=== PATIENT | male | born 1965 | race Two or more races ===

== ENCOUNTER 2021-05-06 12:13 | Inpatient (IN) | payer MEDICARE, MEDICAID ==
[~2021-05-06] VITALS: Ht 180.3 cm; Wt 97.8 kg
[2021-05-06 14:44] LABS: Basophils # (auto) 0.2 10 ^3/uL (0-0.2); Hemoglobin 7.8 g/dL (13.5-17.5); Nucleated Red Blood Cells % 0.1 %; Red Blood Cells 2.82 10^6/uL (4.5-5.90)
[2021-05-06 14:45] LABS: Basophils % (auto) 3.1 % (0.0-2.0); Eosinophils # (auto) 0 10 ^3/uL (0-0.8); Eosinophils % (auto) 0.6 % (0.0-7.0); Hematocrit 23.4 % (41.0-53.0); Lymphocytes % (auto) 12.7 % (10.0-50.0); Mean Corpuscular Hemoglobin 27.6 pg (28.0-32.0); Mean Corpuscular Hgb Conc. 33.2 g/dL (32.0-36.0); Mean Corpuscular Volume 83.1 fL (80.0-100.0); Monocytes # (auto) 0.5 10 ^3/uL (0-1.3); Neutrophils # (auto) 5.9 10 ^3/uL (1.6-8.6); Neutrophils % (auto) 76.6 % (37.0-80.0); Platelet Count (auto) 429 10^3/uL (140-450); Red Cell Distribution Width 19.6 % (11.8-14.3); White Blood Cell 7.6 10^3/uL (4.4-10.8)
[2021-05-06 14:59] LABS: INR 1.08 (0.9-1.15); Partial Thromboplastin Time 29.9 sec (23.0-31.2)
[2021-05-06 15:00] LABS: Albumin 2.6 g/dL (3.4-5.0); Calcium 9.3 mg/dL (8.5-10.1)
[2021-05-06 15:04] LABS: Bilirubin, Total 0.4 mg/dL (0.2-1.0); Total Protein 6.9 g/dL (6.4-8.2)
[2021-05-06 15:19] LABS: BUN/Creatinine Ratio 5.6
[2021-05-06 15:22] LABS: Potassium 5.9 mmol/L (3.5-5.1)
[2021-05-06] MEDS ORDERED: SODIUM BICARBONATE 8.4 % INJ 50ML VIAL IV ONE (16:30)
[2021-05-06] MEDS ORDERED: CALCIUM CHL 100MG/ML 1,000 MG in D5W 5% 100 ML IV ONE (16:30)
[2021-05-06] MEDS ORDERED: dilTIAZem 120MG ER CAP PO ONE (19:15)
[2021-05-06] MEDS ORDERED: METOCLOPRAMIDE HCL 5MG/ml INJ 2ml VIAL IV ONE (19:15)
[2021-05-06] MEDS ORDERED: SODIUM ZIRCONIUM CYCL 10 GM PAK PO ONE (19:15)
[2021-05-06] MEDS ORDERED: NITROGLYCERIN 0.4 MG SL TAB SL PRN (19:15)
[2021-05-06] MEDS ORDERED: MORPHINE SULF INJ 2 MG/ML SYRINGE 1ML IV PRN (19:15)
[2021-05-06] MEDS ORDERED: ALBUTEROL SULF 2.5 MG/0.5ML(0.5%) NEB SOLN NEB ONE (19:15)
[2021-05-06] MEDS ORDERED: cefTRIAXone 1GM/50ML D5W 50 ML IV ONE (19:30)
[2021-05-06] MEDS: ONDANSETRON HCL 4 MG/2 ML VIAL IV PRN (23:41)
[2021-05-06] MEDS: CLINDAMYCIN 300MG IV 50 ML IV SCH (23:43)
[2021-05-07] VITALS (8 sets, daily range): BP systolic 107–145; BP diastolic 54–98
[2021-05-07] MEDS: ONDANSETRON HCL 4 MG/2 ML VIAL IV PRN (01:43)
[2021-05-07] MEDS: metroNIDAZOLE 500MG/100ML 100 ML IV SCH ×4 (03:00→21:48)
[2021-05-07] MEDS ORDERED: ASCO-22 PO (03:51)
[2021-05-07] MEDS ORDERED: B-CO1TAB33 PO (03:51)
[2021-05-07] MEDS ORDERED: TAMS0.4C36 PO (03:51)
[2021-05-07] MEDS ORDERED: DOCU100T15 PO (03:51)
[2021-05-07] MEDS ORDERED: SEVE800T8 PO (03:51)
[2021-05-07] MEDS: CLINDAMYCIN 300MG IV 50 ML IV SCH ×3 (04:03→19:35)
[2021-05-07] MEDS: MORPHINE SULF INJ 2 MG/ML SYRINGE 1ML IV PRN ×4 (05:12→21:54)
[2021-05-07 05:43] LABS: Basophils # (auto) 0.1 10 ^3/uL (0-0.2); Eosinophils # (auto) 0.1 10 ^3/uL (0-0.8); Lymphocytes # (auto) 0.8 10 ^3/uL (0.4-5.4); White Blood Cell 6.8 10^3/uL (4.4-10.8)
[2021-05-07 05:45] LABS: Eosinophils % (auto) 1.4 % (0.0-7.0); Hematocrit 21.7 % (41.0-53.0); Hemoglobin 7.2 g/dL (13.5-17.5); Lymphocytes % (auto) 11.2 % (10.0-50.0); Mean Corpuscular Hemoglobin 27.3 pg (28.0-32.0); Mean Corpuscular Hgb Conc. 33.2 g/dL (32.0-36.0); Mean Corpuscular Volume 82.2 fL (80.0-100.0); Monocytes # (auto) 0.8 10 ^3/uL (0-1.3); Monocytes % (auto) 11.7 % (0.0-12.0); Neutrophils % (auto) 73.7 % (37.0-80.0); Platelet Count (auto) 405 10^3/uL (140-450); Red Blood Cells 2.64 10^6/uL (4.5-5.90)
[2021-05-07 06:00] LABS: Albumin 2.3 g/dL (3.4-5.0); Calcium 9.4 mg/dL (8.5-10.1)
[2021-05-07 06:09] LABS: BUN/Creatinine Ratio 5.7; Bilirubin, Total 0.4 mg/dL (0.2-1.0); Phosphorus 8.6 mg/dL (2.5-4.90); Total Protein 6.2 g/dL (6.4-8.2); Uric Acid 9.7 mg/dL (3.5-7.2)
[2021-05-07 06:13] LABS: Potassium 5.7 mmol/L (3.5-5.1)
[2021-05-07] MEDS: cefTRIAXone 1GM/50ML D5W 50 ML IV SCH (08:20)
[2021-05-07] MEDS: PANTOPRAZOLE 40 MG/10 ML VIAL INJ IV SCH (08:20)
[2021-05-07] MEDS: ASPirin 81 mg TAB PO SCH (08:20)
[2021-05-07] MEDS: SEVELAMER 800 MG TAB PO SCH ×3 (08:20→17:53)
[2021-05-07] MEDS: dilTIAZem 120MG ER CAP PO SCH (08:21)
[2021-05-07 10:09] LABS: Cholesterol 154 mg/dL (< 200)
[2021-05-07 10:11] LABS: HDL Cholesterol 59 mg/dL (40-59); LDL Cholesterol 80 mg/dL (< 100); Triglycerides 99 mg/dL (< 150)
[2021-05-07] MEDS ORDERED: SODIUM CHL 0.9% 1000 ML BAG XX ONE (10:45)
[2021-05-07] MEDS ORDERED: EPOETIN ALFA-EPBX 10,000 UNIT/1ML VIAL SC ONE (21:00)
[2021-05-08] VITALS (7 sets, daily range): BP systolic 127–153; BP diastolic 70–95
[2021-05-08] MEDS: TEMAZEPAM 15 MG CAP PO PRN (01:11)
[2021-05-08] MEDS: MORPHINE SULF INJ 2 MG/ML SYRINGE 1ML IV PRN ×3 (02:11→21:20)
[2021-05-08] MEDS: CLINDAMYCIN 300MG IV 50 ML IV SCH ×3 (03:26→20:09)
[2021-05-08 05:32] LABS: Basophils # (auto) 0.2 10 ^3/uL (0-0.2); Basophils % (auto) 1.7 % (0.0-2.0); Eosinophils # (auto) 0.1 10 ^3/uL (0-0.8); Eosinophils % (auto) 0.9 % (0.0-7.0); Hematocrit 25.9 % (41.0-53.0); Hemoglobin 8.7 g/dL (13.5-17.5); Lymphocytes # (auto) 0.7 10 ^3/uL (0.4-5.4); Lymphocytes % (auto) 7.6 % (10.0-50.0); Mean Corpuscular Hemoglobin 28.6 pg (28.0-32.0); Mean Corpuscular Hgb Conc. 33.7 g/dL (32.0-36.0); Mean Corpuscular Volume 85.1 fL (80.0-100.0); Monocytes % (auto) 10.6 % (0.0-12.0); Neutrophils # (auto) 7.2 10 ^3/uL (1.6-8.6); Neutrophils % (auto) 79.2 % (37.0-80.0); Nucleated Red Blood Cells % 0.3 %; Platelet Count (auto) 364 10^3/uL (140-450); Red Blood Cells 3.04 10^6/uL (4.5-5.90); Red Cell Distribution Width 20.7 % (11.8-14.3); White Blood Cell 9.1 10^3/uL (4.4-10.8)
[2021-05-08 05:49] LABS: INR 1.08 (0.9-1.15); Partial Thromboplastin Time 29.8 sec (23.0-31.2)
[2021-05-08 05:59] LABS: BUN/Creatinine Ratio 5.1; Calcium 9.5 mg/dL (8.5-10.1)
[2021-05-08] MEDS: metroNIDAZOLE 500MG/100ML 100 ML IV SCH ×3 (06:19→21:20)
[2021-05-08] MEDS: SEVELAMER 800 MG TAB PO SCH ×3 (08:00→11:19)
[2021-05-08] MEDS: ASPirin 81 mg TAB PO SCH (09:17)
[2021-05-08] MEDS: cefTRIAXone 1GM/50ML D5W 50 ML IV SCH (09:17)
[2021-05-08] MEDS: PANTOPRAZOLE 40 MG/10 ML VIAL INJ IV SCH (09:17)
[2021-05-08] MEDS: dilTIAZem 120MG ER CAP PO SCH (09:20)
[2021-05-08] MEDS ORDERED: LORazepam 2MG/ML-1ML VIAL IV ONE (11:30)
[2021-05-08] MEDS ORDERED: LIDOCAINE 2%HCL (LOCAL ANESTH.) INJ 20ML MDV ONE (13:26)
[2021-05-08] MEDS ORDERED: IODIXANOL 320MG/ML 100ML BTL IV ONE (13:26)
[2021-05-08] MEDS ORDERED: MIDAZOLAM HCL 1MG/1ML-2 ML VIAL ONE (13:51)
[2021-05-08] MEDS ORDERED: ANGIOMAX 250 MG VIAL IV ONE (13:51)
[2021-05-08] MEDS ORDERED: fentaNYL CITRATE 100 MCG/2 ML VL ONE (13:51)
[2021-05-08] MEDS ORDERED: SODIUM CHL 0.9% 50 ML ONE (13:52)
[2021-05-08] MEDS ORDERED: diphenhdrAMINE HCL 50 MG/1 ML VL ONE (14:11)
[2021-05-08] MEDS ORDERED: NITROGLYCERIN 5MG/ML 10ML VIAL IV ONE (14:40)
[2021-05-08] MEDS ORDERED: VERAPAMIL 2.5MG/ML INJ 2ML VIAL IV ONE (14:40)
[2021-05-08] MEDS ORDERED: CLOPIDOGREL BISULFATE 75 MG TAB ONE (15:16)
[2021-05-08] MEDS: SODIUM CHLOR 0.9% PF (SALINE LOCK) 10ML VIAL/SYR IV SCH (21:20)
[2021-05-09] VITALS (9 sets, daily range): BP systolic 105–123; BP diastolic 56–79
[2021-05-09] MEDS: CLINDAMYCIN 300MG IV 50 ML IV SCH ×3 (03:51→20:32)
[2021-05-09] MEDS: MORPHINE SULF INJ 2 MG/ML SYRINGE 1ML IV PRN ×4 (04:01→20:35)
[2021-05-09] MEDS: SODIUM CHLOR 0.9% PF (SALINE LOCK) 10ML VIAL/SYR IV SCH ×3 (05:16→21:31)
[2021-05-09] MEDS: metroNIDAZOLE 500MG/100ML 100 ML IV SCH ×3 (05:16→21:32)
[2021-05-09 05:55] LABS: Basophils # (auto) 0.1 10 ^3/uL (0-0.2); Eosinophils # (auto) 0.1 10 ^3/uL (0-0.8); Nucleated Red Blood Cells % 0.2 %; White Blood Cell 7.1 10^3/uL (4.4-10.8)
[2021-05-09 05:59] LABS: Basophils % (auto) 1.6 % (0.0-2.0); Eosinophils % (auto) 1.3 % (0.0-7.0); Hematocrit 20.7 % (41.0-53.0); Lymphocytes # (auto) 1.2 10 ^3/uL (0.4-5.4); Lymphocytes % (auto) 16.3 % (10.0-50.0); Mean Corpuscular Hemoglobin 29.3 pg (28.0-32.0); Mean Corpuscular Volume 86.1 fL (80.0-100.0); Monocytes # (auto) 0.9 10 ^3/uL (0-1.3); Monocytes % (auto) 12.2 % (0.0-12.0); Neutrophils # (auto) 4.9 10 ^3/uL (1.6-8.6); Neutrophils % (auto) 68.6 % (37.0-80.0); Platelet Count (auto) 305 10^3/uL (140-450); Red Blood Cells 2.41 10^6/uL (4.5-5.90); Red Cell Distribution Width 20.5 % (11.8-14.3)
[2021-05-09 06:15] LABS: Calcium 6.8 mg/dL (8.5-10.1); Magnesium 1.7 mg/dL (1.6-2.6); Potassium 3.7 mmol/L (3.5-5.1)
[2021-05-09] MEDS ORDERED: SODIUM CHL 0.9% 1000 ML BAG XX ONE (07:00)
[2021-05-09] MEDS: PANTOPRAZOLE 40 MG/10 ML VIAL INJ IV SCH (09:46)
[2021-05-09] MEDS: cefTRIAXone 1GM/50ML D5W 50 ML IV SCH (09:46)
[2021-05-09] MEDS: SEVELAMER 800 MG TAB PO SCH ×3 (09:46→18:00)
[2021-05-09] MEDS: ASPirin 81 mg TAB PO SCH (09:46)
[2021-05-09] MEDS: dilTIAZem 120MG ER CAP PO SCH (09:47)
[2021-05-09 18:08] LABS: Hematocrit 27.4 % (41.0-53.0); Hemoglobin 9.3 g/dL (13.5-17.5)
[2021-05-09] MEDS ORDERED: EPOETIN ALFA-EPBX 10,000 UNIT/1ML VIAL SC ONE (21:00)
[2021-05-09] MEDS: TEMAZEPAM 15 MG CAP PO PRN (22:26)
[2021-05-10] MEDS: MORPHINE SULF INJ 2 MG/ML SYRINGE 1ML IV PRN ×5 (00:16→17:51)
[2021-05-10] MEDS: CLINDAMYCIN 300MG IV 50 ML IV SCH ×3 (03:38→20:00)
[2021-05-10 04:46] VITALS: BP 133/74
[2021-05-10] MEDS: SODIUM CHLOR 0.9% PF (SALINE LOCK) 10ML VIAL/SYR IV SCH ×3 (05:33→22:27)
[2021-05-10] MEDS: metroNIDAZOLE 500MG/100ML 100 ML IV SCH ×2 (05:34→13:53)
[2021-05-10 06:01] LABS: Basophils # (auto) 0.1 10 ^3/uL (0-0.2); Eosinophils # (auto) 0.1 10 ^3/uL (0-0.8); Eosinophils % (auto) 1.3 % (0.0-7.0); Hematocrit 26.4 % (41.0-53.0); Hemoglobin 8.9 g/dL (13.5-17.5); Lymphocytes # (auto) 1.2 10 ^3/uL (0.4-5.4); Lymphocytes % (auto) 12.6 % (10.0-50.0); Mean Corpuscular Hemoglobin 29.2 pg (28.0-32.0); Mean Corpuscular Hgb Conc. 33.7 g/dL (32.0-36.0); Mean Corpuscular Volume 86.6 fL (80.0-100.0); Monocytes # (auto) 1.4 10 ^3/uL (0-1.3); Monocytes % (auto) 13.6 % (0.0-12.0); Neutrophils # (auto) 7.1 10 ^3/uL (1.6-8.6); Neutrophils % (auto) 71.5 % (37.0-80.0); Nucleated Red Blood Cells % 0.1 %; Platelet Count (auto) 316 10^3/uL (140-450); Red Blood Cells 3.05 10^6/uL (4.5-5.90); Red Cell Distribution Width 20.5 % (11.8-14.3); White Blood Cell 9.9 10^3/uL (4.4-10.8)
[2021-05-10 06:16] LABS: Albumin 2.2 g/dL (3.4-5.0); Calcium 8.8 mg/dL (8.5-10.1)
[2021-05-10 06:21] LABS: BUN/Creatinine Ratio 4.8; Bilirubin, Total 0.3 mg/dL (0.2-1.0); Total Protein 5.7 g/dL (6.4-8.2)
[2021-05-10] MEDS: SEVELAMER 800 MG TAB PO SCH ×3 (08:00→17:51)
[2021-05-10 08:15] VITALS: BP 130/81
[2021-05-10 09:01] VITALS: BP 130/81
[2021-05-10] MEDS: cefTRIAXone 1GM/50ML D5W 50 ML IV SCH (09:12)
[2021-05-10] MEDS: PANTOPRAZOLE 40 MG/10 ML VIAL INJ IV SCH (09:49)
[2021-05-10] MEDS: dilTIAZem 120MG ER CAP PO SCH (09:50)
[2021-05-10] MEDS: ASPirin 81 mg TAB PO SCH (09:50)
[2021-05-10 13:00] VITALS: BP 134/80
[2021-05-10] MEDS: HYDROcodone-ACET 5/325MG TAB PO PRN ×2 (15:09→23:46)
[2021-05-10 17:00] VITALS: BP 121/74
[2021-05-10] MEDS: Nepro With Carbsteady ButterPecan 8oz Carton PO SCH (17:51)
[2021-05-10] MEDS ORDERED: Glucerna Carbsteady SHAKE Vanilla 8oz PO SCH (18:00)
[2021-05-10] MEDS ORDERED: Ensure HIGH Protein Chocolate 8oz Bottle PO SCH (18:00)
[2021-05-10 22:00] VITALS: BP 115/67
[2021-05-11] MEDS: TEMAZEPAM 15 MG CAP PO PRN ×2 (00:54→23:07)
[2021-05-11] MEDS: CLINDAMYCIN 300MG IV 50 ML IV SCH (04:30)
[2021-05-11 05:00] VITALS: BP 133/74
[2021-05-11] MEDS: MORPHINE SULF INJ 2 MG/ML SYRINGE 1ML IV PRN ×3 (05:00→20:42)
[2021-05-11] MEDS: SODIUM CHLOR 0.9% PF (SALINE LOCK) 10ML VIAL/SYR IV SCH ×3 (05:33→22:00)
[2021-05-11 05:59] LABS: Basophils # (auto) 0.2 10 ^3/uL (0-0.2); Basophils % (auto) 1.6 % (0.0-2.0); Eosinophils # (auto) 0.2 10 ^3/uL (0-0.8); Eosinophils % (auto) 2.1 % (0.0-7.0); Hematocrit 25.5 % (41.0-53.0); Hemoglobin 8.7 g/dL (13.5-17.5); Lymphocytes # (auto) 1.1 10 ^3/uL (0.4-5.4); Lymphocytes % (auto) 11.8 % (10.0-50.0); Mean Corpuscular Hemoglobin 29.3 pg (28.0-32.0); Mean Corpuscular Hgb Conc. 34.1 g/dL (32.0-36.0); Mean Corpuscular Volume 85.9 fL (80.0-100.0); Monocytes # (auto) 1.2 10 ^3/uL (0-1.3); Monocytes % (auto) 12.2 % (0.0-12.0); Neutrophils # (auto) 6.9 10 ^3/uL (1.6-8.6); Neutrophils % (auto) 72.3 % (37.0-80.0); Nucleated Red Blood Cells % 0.1 %; Platelet Count (auto) 315 10^3/uL (140-450); Red Blood Cells 2.96 10^6/uL (4.5-5.90); Red Cell Distribution Width 20.9 % (11.8-14.3); White Blood Cell 9.5 10^3/uL (4.4-10.8)
[2021-05-11 06:09] LABS: Potassium 4.1 mmol/L (3.5-5.1)
[2021-05-11] MEDS: HYDROcodone-ACET 5/325MG TAB PO PRN (06:22)
[2021-05-11 06:52] LABS: BUN/Creatinine Ratio 4.7; Calcium 8.5 mg/dL (8.5-10.1)
[2021-05-11 08:00] VITALS: BP 124/66
[2021-05-11] MEDS: SEVELAMER 800 MG TAB PO SCH ×3 (08:00→18:09)
[2021-05-11] MEDS: Nepro With Carbsteady ButterPecan 8oz Carton PO SCH ×3 (08:00→18:09)
[2021-05-11] MEDS ORDERED: MIDAZOLAM HCL 1MG/1ML-2 ML VIAL IV ONE ×3 (09:15→09:45)
[2021-05-11] MEDS ORDERED: fentaNYL CITRATE 100 MCG/2 ML VL IV ONE ×2 (09:15→09:45)
[2021-05-11] MEDS ORDERED: diphenhdrAMINE HCL 50 MG/1 ML VL IV ONE ×2 (09:15→09:45)
[2021-05-11] MEDS ORDERED: LIDOCAINE VISCOUS 2% 15ML UD PO ONE ×3 (09:15→09:45)
[2021-05-11] MEDS: PANTOPRAZOLE 40 MG/10 ML VIAL INJ IV SCH (10:00)
[2021-05-11 12:00] VITALS: BP 133/75
[2021-05-11] MEDS: dilTIAZem 120MG ER CAP PO SCH (14:15)
[2021-05-11] MEDS: ASPirin 81 mg TAB PO SCH (14:15)
[2021-05-11 16:00] VITALS: BP 116/59
[2021-05-11 22:00] VITALS: BP 122/20
[2021-05-12] MEDS: MORPHINE SULF INJ 2 MG/ML SYRINGE 1ML IV PRN ×4 (01:28→21:12)
[2021-05-12 05:00] VITALS: BP 121/66
[2021-05-12] MEDS: SODIUM CHLOR 0.9% PF (SALINE LOCK) 10ML VIAL/SYR IV SCH ×3 (05:38→21:12)
[2021-05-12 06:28] LABS: Calcium 9.2 mg/dL (8.5-10.1); Magnesium 2.3 mg/dL (1.6-2.6); Potassium 4.5 mmol/L (3.5-5.1)
[2021-05-12] MEDS ORDERED: SODIUM CHL 0.9% 1000 ML BAG XX ONE (07:00)
[2021-05-12 09:00] VITALS: BP 111/70
[2021-05-12] MEDS: dilTIAZem 120MG ER CAP PO SCH (10:00)
[2021-05-12] MEDS: SEVELAMER 800 MG TAB PO SCH ×3 (11:14→17:51)
[2021-05-12] MEDS: Nepro With Carbsteady ButterPecan 8oz Carton PO SCH ×3 (11:14→18:11)
[2021-05-12] MEDS: ASPirin 81 mg TAB PO SCH (11:57)
[2021-05-12] MEDS: PANTOPRAZOLE 40 MG/10 ML VIAL INJ IV SCH (11:58)
[2021-05-12 13:00] VITALS: BP 109/74
[2021-05-12 17:00] VITALS: BP 129/72
[2021-05-12] MEDS: HYDROcodone-ACET 5/325MG TAB PO PRN (17:51)
[2021-05-12] MEDS ORDERED: EPOETIN ALFA-EPBX 4,000 UNIT/ML VIAL SC ONE (21:00)
[2021-05-12 22:00] VITALS: BP 112/64
[2021-05-13 02:54] LABS: INR 1.05 (0.9-1.15); Partial Thromboplastin Time 29.7 sec (23.0-31.2)
[2021-05-13] MEDS: MORPHINE SULF INJ 2 MG/ML SYRINGE 1ML IV PRN ×5 (03:44→20:12)
[2021-05-13 05:00] VITALS: BP 139/86
[2021-05-13] MEDS: SODIUM CHLOR 0.9% PF (SALINE LOCK) 10ML VIAL/SYR IV SCH ×3 (06:14→22:02)
[2021-05-13] MEDS: Nepro With Carbsteady ButterPecan 8oz Carton PO SCH ×3 (07:45→18:00)
[2021-05-13 08:00] VITALS: BP 120/75
[2021-05-13 09:00] VITALS: BP 120/75
[2021-05-13] MEDS: ASPirin 81 mg TAB PO SCH ×2 (10:00→15:09)
[2021-05-13] MEDS ORDERED: VANCOMYCIN PER PHARMACY 0 MG IV SCH (10:30)
[2021-05-13] MEDS ORDERED: CEFTRIAXONE SODIUM 2 GM in D5W 5% 50 ML IV SCH (10:41)
[2021-05-13 13:00] VITALS: BP 140/72
[2021-05-13 15:00] VITALS: BP 115/59
[2021-05-13] MEDS ORDERED: VANCOMYCIN 1GM/250ML 250 ML IV ONE (15:00)
[2021-05-13] MEDS: dilTIAZem 120MG ER CAP PO SCH (15:10)
[2021-05-13] MEDS: SEVELAMER 800 MG TAB PO SCH ×3 (15:10→18:23)
[2021-05-13] MEDS: PANTOPRAZOLE 40 MG/10 ML VIAL INJ IV SCH (15:13)
[2021-05-13 22:00] VITALS: BP 112/64
[2021-05-14] MEDS: MORPHINE SULF INJ 2 MG/ML SYRINGE 1ML IV PRN ×3 (00:12→23:47)
[2021-05-14] MEDS: TEMAZEPAM 15 MG CAP PO PRN ×2 (00:12→23:47)
[2021-05-14] MEDS: HYDROcodone-ACET 5/325MG TAB PO PRN (02:44)
[2021-05-14 05:00] VITALS: BP 124/79
[2021-05-14] MEDS: SODIUM CHLOR 0.9% PF (SALINE LOCK) 10ML VIAL/SYR IV SCH ×3 (05:46→22:00)
[2021-05-14 05:47] LABS: Basophils # (auto) 0.1 10 ^3/uL (0-0.2); Basophils % (auto) 1.7 % (0.0-2.0); Eosinophils # (auto) 0.2 10 ^3/uL (0-0.8); Eosinophils % (auto) 2.8 % (0.0-7.0); Hematocrit 28.5 % (41.0-53.0); Hemoglobin 9.4 g/dL (13.5-17.5); Lymphocytes % (auto) 12.8 % (10.0-50.0); Mean Corpuscular Hemoglobin 29.1 pg (28.0-32.0); Mean Corpuscular Hgb Conc. 32.9 g/dL (32.0-36.0); Mean Corpuscular Volume 88.4 fL (80.0-100.0); Monocytes # (auto) 1.1 10 ^3/uL (0-1.3); Monocytes % (auto) 13.8 % (0.0-12.0); Neutrophils # (auto) 5.7 10 ^3/uL (1.6-8.6); Neutrophils % (auto) 68.9 % (37.0-80.0); Nucleated Red Blood Cells % 0.1 %; Platelet Count (auto) 365 10^3/uL (140-450); Red Blood Cells 3.23 10^6/uL (4.5-5.90); White Blood Cell 8.2 10^3/uL (4.4-10.8)
[2021-05-14 05:59] LABS: Red Cell Distribution Width 21.3 % (11.8-14.3)
[2021-05-14 06:10] LABS: BUN/Creatinine Ratio 4.3; Calcium 9.3 mg/dL (8.5-10.1); Potassium 4.5 mmol/L (3.5-5.1)
[2021-05-14] MEDS: Nepro With Carbsteady ButterPecan 8oz Carton PO SCH ×3 (08:00→18:36)
[2021-05-14] MEDS: SEVELAMER 800 MG TAB PO SCH ×3 (08:00→18:36)
[2021-05-14 09:00] VITALS: BP 135/68
[2021-05-14] MEDS: PANTOPRAZOLE 40 MG/10 ML VIAL INJ IV SCH (10:00)
[2021-05-14] MEDS ORDERED: IODIXANOL 320MG/ML 100ML BTL IV ONE ×4 (10:36→12:53)
[2021-05-14] MEDS ORDERED: LIDOCAINE 2%HCL (LOCAL ANESTH.) INJ 20ML MDV ONE (10:36)
[2021-05-14] MEDS ORDERED: MIDAZOLAM HCL 1MG/1ML-2 ML VIAL ONE (10:43)
[2021-05-14] MEDS ORDERED: fentaNYL CITRATE 100 MCG/2 ML VL ONE (10:43)
[2021-05-14] MEDS: CEFTRIAXONE SODIUM 2 GM in D5W 5% 50 ML IV SCH (10:50)
[2021-05-14] MEDS: dilTIAZem 120MG ER CAP PO SCH (10:50)
[2021-05-14] MEDS ORDERED: diphenhdrAMINE HCL 50 MG/1 ML VL ONE (11:12)
[2021-05-14 13:20] VITALS: BP 132/69
[2021-05-14 16:54] VITALS: BP 143/76
[2021-05-14] MEDS ORDERED: VANCOMYCIN 1GM/250ML 250 ML IV ONE (18:00)
[2021-05-14 22:00] VITALS: BP 117/63
[2021-05-15] MEDS: MORPHINE SULF INJ 2 MG/ML SYRINGE 1ML IV PRN ×4 (04:39→23:55)
[2021-05-15 05:00] VITALS: BP 125/92
[2021-05-15] MEDS: SODIUM CHLOR 0.9% PF (SALINE LOCK) 10ML VIAL/SYR IV SCH ×5 (05:56→22:00)
[2021-05-15 06:42] LABS: Basophils # (auto) 0.1 10 ^3/uL (0-0.2); Basophils % (auto) 1.6 % (0.0-2.0); Eosinophils # (auto) 0.2 10 ^3/uL (0-0.8); Eosinophils % (auto) 1.9 % (0.0-7.0); Hematocrit 28.2 % (41.0-53.0); Hemoglobin 9.5 g/dL (13.5-17.5); Lymphocytes # (auto) 0.8 10 ^3/uL (0.4-5.4); Mean Corpuscular Hemoglobin 29.4 pg (28.0-32.0); Mean Corpuscular Hgb Conc. 33.8 g/dL (32.0-36.0); Mean Corpuscular Volume 87.1 fL (80.0-100.0); Monocytes # (auto) 1.1 10 ^3/uL (0-1.3); Monocytes % (auto) 12.9 % (0.0-12.0); Neutrophils # (auto) 6.1 10 ^3/uL (1.6-8.6); Neutrophils % (auto) 73.6 % (37.0-80.0); Nucleated Red Blood Cells % 0.1 %; Platelet Count (auto) 394 10^3/uL (140-450); Red Blood Cells 3.24 10^6/uL (4.5-5.90); White Blood Cell 8.2 10^3/uL (4.4-10.8)
[2021-05-15 07:00] LABS: INR 1.07 (0.9-1.15); Partial Thromboplastin Time 31.9 sec (23.0-31.2)
[2021-05-15 07:04] LABS: Calcium 8.9 mg/dL (8.5-10.1)
[2021-05-15 07:06] LABS: BUN/Creatinine Ratio 4.6; Red Cell Distribution Width 21.5 % (11.8-14.3)
[2021-05-15 08:00] VITALS: BP 106/63
[2021-05-15] MEDS: Nepro With Carbsteady ButterPecan 8oz Carton PO SCH ×3 (08:00→18:30)
[2021-05-15 09:00] VITALS: BP 106/63
[2021-05-15] MEDS ORDERED: LIDOCAINE 2%HCL (LOCAL ANESTH.) INJ 20ML MDV ONE (10:22)
[2021-05-15] MEDS ORDERED: IODIXANOL 320MG/ML 100ML BTL IV ONE (10:22)
[2021-05-15] MEDS ORDERED: fentaNYL CITRATE 100 MCG/2 ML VL ONE (10:42)
[2021-05-15] MEDS ORDERED: diphenhdrAMINE HCL 50 MG/1 ML VL ONE (10:42)
[2021-05-15] MEDS ORDERED: ANGIOMAX 250 MG VIAL IV ONE (10:42)
[2021-05-15] MEDS ORDERED: MIDAZOLAM HCL 1MG/1ML-2 ML VIAL ONE (10:43)
[2021-05-15] MEDS ORDERED: SODIUM CHL 0.9% 0 ML ONE (10:43)
[2021-05-15] MEDS: SEVELAMER 800 MG TAB PO SCH ×3 (12:00→18:51)
[2021-05-15] MEDS: PANTOPRAZOLE 40 MG/10 ML VIAL INJ IV SCH (13:41)
[2021-05-15] MEDS: CEFTRIAXONE SODIUM 2 GM in D5W 5% 50 ML IV SCH (13:44)
[2021-05-15] MEDS: ASPirin 81 mg TAB PO SCH (13:44)
[2021-05-15] MEDS: dilTIAZem 120MG ER CAP PO SCH (13:44)
[2021-05-15] MEDS ORDERED: LIDOCAINE 1% (LOCAL ANESTH.) PF 5ml SDV ID ONE (14:45)
[2021-05-15 17:00] VITALS: BP 141/61
[2021-05-15 23:52] VITALS: BP 140/58
[2021-05-16] MEDS: MORPHINE SULF INJ 2 MG/ML SYRINGE 1ML IV PRN ×2 (03:55→12:49)
[2021-05-16 05:14] VITALS: BP 136/74
[2021-05-16] MEDS: SODIUM CHLOR 0.9% PF (SALINE LOCK) 10ML VIAL/SYR IV SCH ×3 (06:00→14:00)
[2021-05-16 06:23] LABS: BUN/Creatinine Ratio 3.8; Calcium 8.6 mg/dL (8.5-10.1)
[2021-05-16 06:26] LABS: Potassium 5.6 mmol/L (3.5-5.1)
[2021-05-16] MEDS: Nepro With Carbsteady ButterPecan 8oz Carton PO SCH ×3 (08:00→14:58)
[2021-05-16] MEDS ORDERED: PERITONEAL DIALYSIS 2.5% SOLN 2,000 ML IP ONE (08:00)
[2021-05-16] MEDS: SEVELAMER 800 MG TAB PO SCH ×3 (08:24→18:36)
[2021-05-16] MEDS: CEFTRIAXONE SODIUM 2 GM in D5W 5% 50 ML IV SCH (08:24)
[2021-05-16 09:00] VITALS: BP 122/65
[2021-05-16] MEDS: PANTOPRAZOLE 40 MG/10 ML VIAL INJ IV SCH (10:00)
[2021-05-16] MEDS: dilTIAZem 120MG ER CAP PO SCH (12:49)
[2021-05-16] MEDS: ASPirin 81 mg TAB PO SCH (12:50)
[2021-05-16 13:00] VITALS: BP 138/79
[2021-05-16] MEDS ORDERED: PERITONEAL DIALYSIS 2.5% SOLN 2,000 ML IP SCH ×2 (14:00→14:15)
[2021-05-16] MEDS: PERITONEAL DIALYSIS 2.5% SOLN 2,000 ML IP SCH ×2 (15:30→17:30)
[2021-05-16 17:00] VITALS: BP 124/72
[2021-05-16 22:00] VITALS: BP 142/66
[2021-05-16] MEDS: RIVAROXABAN 10 MG TAB PO SCH (22:00)
[2021-05-17] MEDS: SODIUM CHLOR 0.9% PF (SALINE LOCK) 10ML VIAL/SYR IV SCH ×4 (00:47→23:35)
[2021-05-17] MEDS: MORPHINE SULF INJ 2 MG/ML SYRINGE 1ML IV PRN ×6 (00:50→21:49)
[2021-05-17 05:00] VITALS: BP 131/96
[2021-05-17 06:58] LABS: Potassium 5.2 mmol/L (3.5-5.1)
[2021-05-17 07:09] LABS: BUN/Creatinine Ratio 4.7; Calcium 9.5 mg/dL (8.5-10.1)
[2021-05-17] MEDS: SEVELAMER 800 MG TAB PO SCH ×3 (07:59→17:54)
[2021-05-17 08:00] VITALS: BP 122/91
[2021-05-17] MEDS ORDERED: PERITONEAL DIALYSIS 2.5% SOLN 2,000 ML IP SCH (08:00)
[2021-05-17] MEDS: RIVAROXABAN 10 MG TAB PO SCH ×3 (08:53→22:00)
[2021-05-17] MEDS: ASPirin 81 mg TAB PO SCH (08:53)
[2021-05-17] MEDS: CEFTRIAXONE SODIUM 2 GM in D5W 5% 50 ML IV SCH (08:54)
[2021-05-17 09:00] VITALS: BP 122/91
[2021-05-17] MEDS: dilTIAZem 120MG ER CAP PO SCH (10:00)
[2021-05-17 13:00] VITALS: BP 116/95
[2021-05-17 16:58] VITALS: BP 151/112
[2021-05-17] MEDS ORDERED: VANCOMYCIN 1GM/250ML 250 ML IV ONE (18:00)
[2021-05-17 22:00] VITALS: BP 136/81
[2021-05-18 05:00] VITALS: BP 128/78
[2021-05-18] MEDS: MORPHINE SULF INJ 2 MG/ML SYRINGE 1ML IV PRN ×3 (06:11→15:33)
[2021-05-18] MEDS: SODIUM CHLOR 0.9% PF (SALINE LOCK) 10ML VIAL/SYR IV SCH ×2 (06:50→14:13)
[2021-05-18 07:03] LABS: Basophils # (auto) 0.1 10 ^3/uL (0-0.2); Basophils % (auto) 1.3 % (0.0-2.0); Eosinophils # (auto) 0.2 10 ^3/uL (0-0.8); Hematocrit 28.3 % (41.0-53.0); Hemoglobin 9.3 g/dL (13.5-17.5); Lymphocytes # (auto) 0.8 10 ^3/uL (0.4-5.4); Lymphocytes % (auto) 9.1 % (10.0-50.0); Mean Corpuscular Hemoglobin 28.5 pg (28.0-32.0); Mean Corpuscular Volume 86.6 fL (80.0-100.0); Monocytes # (auto) 1.4 10 ^3/uL (0-1.3); Monocytes % (auto) 16.1 % (0.0-12.0); Neutrophils # (auto) 6.3 10 ^3/uL (1.6-8.6); Neutrophils % (auto) 71.5 % (37.0-80.0); Platelet Count (auto) 403 10^3/uL (140-450); Red Blood Cells 3.27 10^6/uL (4.5-5.90); Red Cell Distribution Width 19.8 % (11.8-14.3); White Blood Cell 8.8 10^3/uL (4.4-10.8)
[2021-05-18 07:14] LABS: Calcium 9.4 mg/dL (8.5-10.1); Potassium 5.1 mmol/L (3.5-5.1)
[2021-05-18 07:17] LABS: BUN/Creatinine Ratio 4.7
[2021-05-18] MEDS: SEVELAMER 800 MG TAB PO SCH ×4 (08:21→18:33)
[2021-05-18 09:00] VITALS: BP 130/83
[2021-05-18] MEDS: RIVAROXABAN 10 MG TAB PO SCH (10:00)
[2021-05-18] MEDS: ASPirin 81 mg TAB PO SCH (10:13)
[2021-05-18] MEDS: dilTIAZem 120MG ER CAP PO SCH (10:14)
[2021-05-18] MEDS: CEFTRIAXONE SODIUM 2 GM in D5W 5% 50 ML IV SCH (10:14)
[2021-05-18 14:29] VITALS: BP 128/86
[2021-05-18 17:00] VITALS: BP 122/66
[2021-05-18 17:16] VITALS: BP 122/66
[2021-05-18 22:00] VITALS: BP 152/85
[2021-05-19 05:00] VITALS: BP 143/77
[2021-05-19] MEDS: SODIUM CHLOR 0.9% PF (SALINE LOCK) 10ML VIAL/SYR IV SCH ×4 (06:04→22:00)
[2021-05-19 06:51] LABS: Potassium 5.1 mmol/L (3.5-5.1)
[2021-05-19 07:02] LABS: BUN/Creatinine Ratio 4.8; Calcium 9.4 mg/dL (8.5-10.1); Magnesium 2.7 mg/dL (1.6-2.6)
[2021-05-19] MEDS: SEVELAMER 800 MG TAB PO SCH ×3 (08:32→18:20)
[2021-05-19 09:00] VITALS: BP 146/87
[2021-05-19] MEDS: ASPirin 81 mg TAB PO SCH (09:37)
[2021-05-19] MEDS: ONDANSETRON HCL 4 MG/2 ML VIAL IV PRN ×2 (09:37→23:08)
[2021-05-19] MEDS: dilTIAZem 120MG ER CAP PO SCH (09:37)
[2021-05-19] MEDS: CEFTRIAXONE SODIUM 2 GM in D5W 5% 50 ML IV SCH (09:38)
[2021-05-19] MEDS ORDERED: ENOXAPARIN SOD 30 MG/0.3 ML SYRINGE SC SCH (10:00)
[2021-05-19 13:00] VITALS: BP 147/75
[2021-05-19 17:00] VITALS: BP 129/73
[2021-05-19] MEDS: MORPHINE SULF INJ 2 MG/ML SYRINGE 1ML IV PRN (17:17)
[2021-05-19] MEDS: PERITONEAL DIALYSIS 2.5% SOLN 2,000 ML IP SCH ×2 (19:55→21:59)
[2021-05-19] MEDS ORDERED: EPOETIN ALFA-EPBX 10,000 UNIT/1ML VIAL SC ONE (21:00)
[2021-05-19 22:00] VITALS: BP 148/77
[2021-05-20] MEDS: MORPHINE SULF INJ 2 MG/ML SYRINGE 1ML IV PRN ×3 (00:28→23:16)
[2021-05-20 05:00] VITALS: BP 137/75
[2021-05-20 06:25] LABS: Hematocrit 29.9 % (41.0-53.0); Hemoglobin 9.9 g/dL (13.5-17.5)
[2021-05-20 06:53] LABS: % Iron Saturation 25.2 % (20-55)
[2021-05-20 07:28] LABS: INR 1.08 (0.9-1.15); Partial Thromboplastin Time 31.9 sec (23.0-31.2)
[2021-05-20] MEDS: SODIUM CHLOR 0.9% PF (SALINE LOCK) 10ML VIAL/SYR IV SCH ×3 (07:50→22:00)
[2021-05-20] MEDS: SEVELAMER 800 MG TAB PO SCH ×3 (07:58→18:12)
[2021-05-20] MEDS: ASPirin 81 mg TAB PO SCH (08:11)
[2021-05-20] MEDS: CEFTRIAXONE SODIUM 2 GM in D5W 5% 50 ML IV SCH (08:11)
[2021-05-20] MEDS: dilTIAZem 120MG ER CAP PO SCH (08:12)
[2021-05-20 09:00] VITALS: BP 163/97
[2021-05-20 09:23] VITALS: BP 149/106
[2021-05-20] MEDS ORDERED: SODIUM CHLORIDE LOCK 10 ML ONE (12:21)
[2021-05-20] MEDS ORDERED: PROPOFOL 10 MG/ML 20 ML IV ONE (12:21)
[2021-05-20] MEDS ORDERED: ONDANSETRON HCL 4 MG/2 ML VIAL ONE (12:21)
[2021-05-20] MEDS ORDERED: fentaNYL CITRATE 100 MCG/2 ML VL ONE (12:21)
[2021-05-20] MEDS ORDERED: MIDAZOLAM HCL 1MG/1ML-2 ML VIAL ONE (12:21)
[2021-05-20] MEDS ORDERED: BUPIVACAINE HCL 50 ML ONE (12:50)
[2021-05-20] MEDS: LIDOCAINE 1% HCL (LOCAL ANESTH.) INJ 20ML MDV ONE ×4 (12:50→13:52)
[2021-05-20] MEDS ORDERED: METOPROLOL TARTRATE 1MG/1ML-5ML VIAL IV ONE (13:22)
[2021-05-20] MEDS ORDERED: ESMOLOL HCL 10 ML IV ONE (13:59)
[2021-05-20 16:52] VITALS: BP 126/78
[2021-05-20] MEDS: PERITONEAL DIALYSIS 2.5% SOLN 2,000 ML IP SCH (20:40)
[2021-05-20] MEDS: ONDANSETRON HCL 4 MG/2 ML VIAL IV PRN (23:57)
[2021-05-21] MEDS: HYDROcodone-ACET 5/325MG TAB PO PRN ×3 (01:20→09:57)
[2021-05-21] MEDS: MORPHINE SULF INJ 2 MG/ML SYRINGE 1ML IV PRN ×2 (03:23→08:27)
[2021-05-21 05:00] VITALS: BP 148/99
[2021-05-21] MEDS: SODIUM CHLOR 0.9% PF (SALINE LOCK) 10ML VIAL/SYR IV SCH ×3 (06:00→22:07)
[2021-05-21 06:51] LABS: Basophils # (auto) 0.2 10 ^3/uL (0-0.2); Basophils % (auto) 2.1 % (0.0-2.0); Eosinophils # (auto) 0.1 10 ^3/uL (0-0.8); Eosinophils % (auto) 1.6 % (0.0-7.0); Hemoglobin 10.6 g/dL (13.5-17.5); Lymphocytes % (auto) 13.4 % (10.0-50.0); Mean Corpuscular Hemoglobin 28.7 pg (28.0-32.0); Mean Corpuscular Volume 87.1 fL (80.0-100.0); Monocytes % (auto) 14.4 % (0.0-12.0); Neutrophils % (auto) 68.5 % (37.0-80.0); Nucleated Red Blood Cells % 0.1 %; Platelet Count (auto) 439 10^3/uL (140-450); Red Blood Cells 3.67 10^6/uL (4.5-5.90); Red Cell Distribution Width 19.8 % (11.8-14.3); White Blood Cell 7.3 10^3/uL (4.4-10.8)
[2021-05-21 07:02] LABS: BUN/Creatinine Ratio 4.6; Calcium 9.7 mg/dL (8.5-10.1); Magnesium 2.8 mg/dL (1.6-2.6)
[2021-05-21 07:27] LABS: Potassium 5.8 mmol/L (3.5-5.1)
[2021-05-21] MEDS ORDERED: SODIUM ZIRCONIUM CYCL 10 GM PAK PO ONE (08:00)
[2021-05-21] MEDS: SEVELAMER 800 MG TAB PO SCH ×3 (08:26→17:48)
[2021-05-21 09:00] VITALS: BP 151/90
[2021-05-21] MEDS: ASPirin 81 mg TAB PO SCH (09:56)
[2021-05-21] MEDS: dilTIAZem 120MG ER CAP PO SCH (09:56)
[2021-05-21] MEDS: CEFTRIAXONE SODIUM 2 GM in D5W 5% 50 ML IV SCH (10:36)
[2021-05-21] MEDS ORDERED: HYDROmorphone HCL 2 MG/ML VL IV ONE (11:15)
[2021-05-21 13:00] VITALS: BP 146/76
[2021-05-21] MEDS: HYDROmorphone HCL 2 MG/ML VL IV PRN ×2 (16:31→22:08)
[2021-05-21 16:40] VITALS: BP 166/92
[2021-05-21] MEDS: PERITONEAL DIALYSIS 2.5% SOLN 2,000 ML IP SCH ×2 (17:40→22:07)
[2021-05-21] MEDS ORDERED: ALBUTEROL SULF 2.5 MG/0.5ML(0.5%) NEB SOLN NEB ONE (18:30)
[2021-05-21] MEDS ORDERED: DEXTROSE (50%) 50ML SYRG IV ONE (18:30)
[2021-05-21] MEDS ORDERED: InsuLIN REG 1unit/0.01ml Soln (100units/ml) IV ONE (18:30)
[2021-05-21] MEDS ORDERED: SODIUM BICARBONATE 8.4% INJ 50ML SYRINGE IV ONE (18:30)
[2021-05-21 22:17] VITALS: BP 157/106
[2021-05-22] MEDS: HYDROmorphone HCL 2 MG/ML VL IV PRN ×5 (03:09→21:05)
[2021-05-22 05:02] VITALS: BP 153/76
[2021-05-22] MEDS: HYDROcodone-ACET 5/325MG TAB PO PRN (05:17)
[2021-05-22] MEDS: SODIUM CHLOR 0.9% PF (SALINE LOCK) 10ML VIAL/SYR IV SCH ×3 (07:32→21:03)
[2021-05-22] MEDS: SEVELAMER 800 MG TAB PO SCH ×3 (07:49→17:40)
[2021-05-22 08:15] VITALS: BP 146/88
[2021-05-22 08:37] LABS: BUN/Creatinine Ratio 4.6; Calcium 10.1 mg/dL (8.5-10.1); Potassium 5.2 mmol/L (3.5-5.1)
[2021-05-22 09:00] VITALS: BP 146/88
[2021-05-22] MEDS ORDERED: ASPI-378 PO (09:43)
[2021-05-22] MEDS ORDERED: DILT120C12 PO (09:43)
[2021-05-22] MEDS ORDERED: RIVA10TA PO (09:43)
[2021-05-22] MEDS ORDERED: PANT40TA2 PO (09:43)
[2021-05-22] MEDS: ASPirin 81 mg TAB PO SCH (10:45)
[2021-05-22] MEDS: CEFTRIAXONE SODIUM 2 GM in D5W 5% 50 ML IV SCH (10:45)
[2021-05-22] MEDS: dilTIAZem 120MG ER CAP PO SCH (10:46)
[2021-05-22] MEDS: DAKINS HALF STR 0.25% (NaHypochlorite) 473 ML TOPICAL SOL TOP SCH (10:47)
[2021-05-22] MEDS: RIVAROXABAN 10 MG TAB PO SCH ×2 (10:47→21:04)
[2021-05-22] MEDS: PANTOPRAZOLE 40 MG TAB PO SCH (10:47)
[2021-05-22 12:40] VITALS: BP 140/80
[2021-05-22] MEDS ORDERED: VANCOMYCIN 500 MG in D5W 5% 100 ML IV ONE (16:00)
[2021-05-22 16:42] VITALS: BP 146/77
[2021-05-22] MEDS: PERITONEAL DIALYSIS 2.5% SOLN 2,000 ML IP SCH ×2 (18:55→21:00)
[2021-05-22 22:16] VITALS: BP 165/88
[2021-05-23] VITALS (8 sets, daily range): BP systolic 123–155; BP diastolic 65–107
[2021-05-23] MEDS: HYDROmorphone HCL 2 MG/ML VL IV PRN ×4 (02:26→17:49)
[2021-05-23] MEDS: SODIUM CHLOR 0.9% PF (SALINE LOCK) 10ML VIAL/SYR IV SCH ×3 (06:45→22:00)
[2021-05-23] MEDS: SEVELAMER 800 MG TAB PO SCH ×3 (08:01→17:48)
[2021-05-23] MEDS: ASPirin 81 mg TAB PO SCH (09:52)
[2021-05-23] MEDS: CEFTRIAXONE SODIUM 2 GM in D5W 5% 50 ML IV SCH (09:52)
[2021-05-23] MEDS: dilTIAZem 120MG ER CAP PO SCH (09:53)
[2021-05-23] MEDS: PANTOPRAZOLE 40 MG TAB PO SCH (09:53)
[2021-05-23] MEDS: RIVAROXABAN 10 MG TAB PO SCH ×2 (09:53→22:00)
[2021-05-23] MEDS: DAKINS HALF STR 0.25% (NaHypochlorite) 473 ML TOPICAL SOL TOP SCH (09:54)
[2021-05-23] MEDS ORDERED: hydrALAZINE HCL 20 MG/ML VL IV PRN (11:30)
[2021-05-23] MEDS: hydrALAZINE HCL 25 MG TAB PO SCH (14:47)
[2021-05-23] MEDS: HYDROcodone-ACET 5/325MG TAB PO PRN (15:53)
[2021-05-23] MEDS: PERITONEAL DIALYSIS 2.5% SOLN 2,000 ML IP SCH (17:48)
[2021-05-24] VITALS (7 sets, daily range): BP systolic 136–161; BP diastolic 71–90
[2021-05-24] MEDS: PERITONEAL DIALYSIS 2.5% SOLN 2,000 ML IP SCH ×3 (00:07→21:15)
[2021-05-24] MEDS: TEMAZEPAM 15 MG CAP PO PRN (00:09)
[2021-05-24] MEDS: HYDROmorphone HCL 2 MG/ML VL IV PRN ×6 (03:50→22:24)
[2021-05-24] MEDS: SODIUM CHLOR 0.9% PF (SALINE LOCK) 10ML VIAL/SYR IV SCH ×3 (06:00→22:00)
[2021-05-24] MEDS: hydrALAZINE HCL 25 MG TAB PO SCH ×4 (06:00→22:00)
[2021-05-24] MEDS: SEVELAMER 800 MG TAB PO SCH ×3 (08:04→18:24)
[2021-05-24] MEDS: RIVAROXABAN 10 MG TAB PO SCH ×2 (10:00→22:00)
[2021-05-24 10:49] LABS: BUN/Creatinine Ratio 4.8; Calcium 9.5 mg/dL (8.5-10.1)
[2021-05-24] MEDS: ASPirin 81 mg TAB PO SCH (11:45)
[2021-05-24] MEDS: CEFTRIAXONE SODIUM 2 GM in D5W 5% 50 ML IV SCH (11:45)
[2021-05-24] MEDS: PANTOPRAZOLE 40 MG TAB PO SCH (11:46)
[2021-05-24] MEDS: dilTIAZem 120MG ER CAP PO SCH (11:46)
[2021-05-24] MEDS: DAKINS HALF STR 0.25% (NaHypochlorite) 473 ML TOPICAL SOL TOP SCH (11:47)
[2021-05-25] MEDS: HYDROmorphone HCL 2 MG/ML VL IV PRN ×2 (03:52→09:08)
[2021-05-25 05:09] VITALS: BP 161/50
[2021-05-25] MEDS: SODIUM CHLOR 0.9% PF (SALINE LOCK) 10ML VIAL/SYR IV SCH ×3 (06:09→21:18)
[2021-05-25] MEDS: hydrALAZINE HCL 25 MG TAB PO SCH ×3 (06:10→21:18)
[2021-05-25 06:15] LABS: Basophils # (auto) 0.2 10 ^3/uL (0-0.2); Eosinophils # (auto) 0.2 10 ^3/uL (0-0.8); Eosinophils % (auto) 2.2 % (0.0-7.0); Hematocrit 31.4 % (41.0-53.0); Hemoglobin 10.4 g/dL (13.5-17.5); Lymphocytes # (auto) 0.8 10 ^3/uL (0.4-5.4); Lymphocytes % (auto) 10.1 % (10.0-50.0); Mean Corpuscular Hemoglobin 28.6 pg (28.0-32.0); Mean Corpuscular Hgb Conc. 33.1 g/dL (32.0-36.0); Mean Corpuscular Volume 86.6 fL (80.0-100.0); Monocytes # (auto) 0.9 10 ^3/uL (0-1.3); Monocytes % (auto) 11.3 % (0.0-12.0); Neutrophils # (auto) 6.2 10 ^3/uL (1.6-8.6); Neutrophils % (auto) 74.4 % (37.0-80.0); Nucleated Red Blood Cells % 0.1 %; Platelet Count (auto) 442 10^3/uL (140-450); Red Blood Cells 3.63 10^6/uL (4.5-5.90); Red Cell Distribution Width 19.6 % (11.8-14.3); White Blood Cell 8.4 10^3/uL (4.4-10.8)
[2021-05-25 06:44] LABS: Potassium 4.8 mmol/L (3.5-5.1)
[2021-05-25 06:55] LABS: BUN/Creatinine Ratio 5.1; Calcium 9.5 mg/dL (8.5-10.1)
[2021-05-25] MEDS: SEVELAMER 800 MG TAB PO SCH ×3 (08:19→18:16)
[2021-05-25 09:00] VITALS: BP 124/77
[2021-05-25] MEDS: ASPirin 81 mg TAB PO SCH (09:08)
[2021-05-25] MEDS: dilTIAZem 120MG ER CAP PO SCH (09:08)
[2021-05-25] MEDS: RIVAROXABAN 10 MG TAB PO SCH ×2 (09:09→21:30)
[2021-05-25] MEDS: PANTOPRAZOLE 40 MG TAB PO SCH (09:09)
[2021-05-25] MEDS: DAKINS HALF STR 0.25% (NaHypochlorite) 473 ML TOPICAL SOL TOP SCH (10:00)
[2021-05-25] MEDS: CEFTRIAXONE SODIUM 2 GM in D5W 5% 50 ML IV SCH (10:48)
[2021-05-25] MEDS ORDERED: HYDROmorphone HCL 2 MG/ML VL IV PRN (11:45)
[2021-05-25 13:00] VITALS: BP 149/86
[2021-05-25 17:00] VITALS: BP 148/76
[2021-05-25] MEDS: PERITONEAL DIALYSIS 2.5% SOLN 2,000 ML IP SCH ×2 (19:05→22:48)
[2021-05-25] MEDS: KETOROLAC TROMETH 30 MG/ML 1ML VIAL IV PRN (19:43)
[2021-05-25] MEDS: TEMAZEPAM 15 MG CAP PO PRN (21:18)
[2021-05-25 22:00] VITALS: BP 141/44
[2021-05-26] VITALS (7 sets, daily range): BP systolic 109–150; BP diastolic 59–115
[2021-05-26] MEDS: KETOROLAC TROMETH 30 MG/ML 1ML VIAL IV PRN ×2 (03:22→16:59)
[2021-05-26] MEDS: SODIUM CHLOR 0.9% PF (SALINE LOCK) 10ML VIAL/SYR IV SCH ×3 (05:51→22:00)
[2021-05-26] MEDS: hydrALAZINE HCL 25 MG TAB PO SCH ×3 (05:51→22:00)
[2021-05-26 06:44] LABS: BUN/Creatinine Ratio 4.9; Calcium 9.9 mg/dL (8.5-10.1); Potassium 4.8 mmol/L (3.5-5.1)
[2021-05-26] MEDS: SEVELAMER 800 MG TAB PO SCH ×3 (08:08→18:17)
[2021-05-26] MEDS: RIVAROXABAN 10 MG TAB PO SCH ×2 (10:00→22:00)
[2021-05-26] MEDS: CEFTRIAXONE SODIUM 2 GM in D5W 5% 50 ML IV SCH (10:09)
[2021-05-26] MEDS: ASPirin 81 mg TAB PO SCH (10:10)
[2021-05-26] MEDS: dilTIAZem 120MG ER CAP PO SCH (10:10)
[2021-05-26] MEDS: PANTOPRAZOLE 40 MG TAB PO SCH (10:10)
[2021-05-26] MEDS: DAKINS HALF STR 0.25% (NaHypochlorite) 473 ML TOPICAL SOL TOP SCH (10:11)
[2021-05-26] MEDS ORDERED: HYDR50TA15 PO (10:25)
[2021-05-26] MEDS: PERITONEAL DIALYSIS 2.5% SOLN 2,000 ML IP SCH ×2 (18:16→20:00)
[2021-05-27] MEDS: KETOROLAC TROMETH 30 MG/ML 1ML VIAL IV PRN (04:25)
[2021-05-27 05:00] VITALS: BP 154/81
[2021-05-27] MEDS: SODIUM CHLOR 0.9% PF (SALINE LOCK) 10ML VIAL/SYR IV SCH ×3 (06:02→22:23)
[2021-05-27] MEDS: hydrALAZINE HCL 25 MG TAB PO SCH ×3 (06:03→22:23)
[2021-05-27 08:00] VITALS: BP 141/79
[2021-05-27] MEDS: SEVELAMER 800 MG TAB PO SCH ×3 (08:30→18:09)
[2021-05-27 09:00] VITALS: BP 141/79
[2021-05-27] MEDS: RIVAROXABAN 10 MG TAB PO SCH ×2 (10:00→22:32)
[2021-05-27] MEDS: ASPirin 81 mg TAB PO SCH (10:15)
[2021-05-27] MEDS: dilTIAZem 120MG ER CAP PO SCH (10:15)
[2021-05-27] MEDS: PANTOPRAZOLE 40 MG TAB PO SCH (10:15)
[2021-05-27] MEDS: CEFTRIAXONE SODIUM 2 GM in D5W 5% 50 ML IV SCH (10:16)
[2021-05-27 13:00] VITALS: BP 150/83
[2021-05-27] MEDS: DAKINS HALF STR 0.25% (NaHypochlorite) 473 ML TOPICAL SOL TOP SCH (14:18)
[2021-05-27 17:00] VITALS: BP 150/41
[2021-05-27] MEDS: PERITONEAL DIALYSIS 2.5% SOLN 2,000 ML IP SCH ×2 (18:37→21:35)
[2021-05-27 22:00] VITALS: BP 115/49
[2021-05-28] MEDS: KETOROLAC TROMETH 30 MG/ML 1ML VIAL IV PRN ×2 (01:45→09:16)
[2021-05-28 05:00] VITALS: BP 150/79
[2021-05-28 05:37] LABS: Basophils # (auto) 0.2 10 ^3/uL (0-0.2); Eosinophils # (auto) 0.3 10 ^3/uL (0-0.8); Neutrophils # (auto) 6.4 10 ^3/uL (1.6-8.6); Nucleated Red Blood Cells % 0.1 %; Red Cell Distribution Width 19.1 % (11.8-14.3)
[2021-05-28 05:40] LABS: Basophils % (auto) 2.1 % (0.0-2.0); Eosinophils % (auto) 3.7 % (0.0-7.0); Hematocrit 24.3 % (41.0-53.0); Hemoglobin 8.3 g/dL (13.5-17.5); Lymphocytes % (auto) 11.3 % (10.0-50.0); Mean Corpuscular Hemoglobin 29.2 pg (28.0-32.0); Mean Corpuscular Hgb Conc. 33.9 g/dL (32.0-36.0); Monocytes % (auto) 11.5 % (0.0-12.0); Neutrophils % (auto) 71.4 % (37.0-80.0); Platelet Count (auto) 406 10^3/uL (140-450); Red Blood Cells 2.83 10^6/uL (4.5-5.90); White Blood Cell 8.9 10^3/uL (4.4-10.8)
[2021-05-28] MEDS: SODIUM CHLOR 0.9% PF (SALINE LOCK) 10ML VIAL/SYR IV SCH ×2 (06:29→14:16)
[2021-05-28] MEDS: hydrALAZINE HCL 25 MG TAB PO SCH ×2 (06:30→14:16)
[2021-05-28] MEDS: SEVELAMER 800 MG TAB PO SCH ×3 (08:01→18:00)
[2021-05-28 08:42] VITALS: BP 136/83
[2021-05-28] MEDS: dilTIAZem 120MG ER CAP PO SCH (09:15)
[2021-05-28] MEDS: ASPirin 81 mg TAB PO SCH (09:15)
[2021-05-28] MEDS: RIVAROXABAN 10 MG TAB PO SCH (09:16)
[2021-05-28] MEDS: PANTOPRAZOLE 40 MG TAB PO SCH (09:16)
[2021-05-28] MEDS: CEFTRIAXONE SODIUM 2 GM in D5W 5% 50 ML IV SCH (09:17)
[2021-05-28] MEDS: DAKINS HALF STR 0.25% (NaHypochlorite) 473 ML TOPICAL SOL TOP SCH (10:00)
[2021-05-28 13:00] VITALS: BP 123/71
[2021-05-28] MEDS ORDERED: VANCOMYCIN 500 MG in D5W 5% 100 ML IV ONE (13:00)
[2021-05-28 16:40] VITALS: BP 136/53
[2021-05-28] MEDS: PERITONEAL DIALYSIS 2.5% SOLN 2,000 ML IP SCH ×2 (18:00→20:00)
== END 2021-05-28 19:54 | DRG 270 ==
LOC: ER 12:13 → TELE 19:07 → TELE-CENTR 23:30
PROVIDERS: ADMIT Nurse Practitioner Acute Care; ATTEND Internal Medicine
PROC: 30233N1 Transfusion of Nonautologous Red Blood Cells into Peripheral Vein, Percutaneous Approach (ICD-10-PCS; 2021-05-07)
PROC: 04CK3ZZ Extirpation of Matter from Right Femoral Artery, Percutaneous Approach (ICD-10-PCS; principal; 2021-05-08)
PROC: 047K3ZZ Dilation of Right Femoral Artery, Percutaneous Approach (ICD-10-PCS; 2021-05-08)
PROC: B41GYZZ Fluoroscopy of Left Lower Extremity Arteries using Other Contrast (ICD-10-PCS; 2021-05-08)
PROC: B41FYZZ Fluoroscopy of Right Lower Extremity Arteries using Other Contrast (ICD-10-PCS; 2021-05-08)
PROC: B24BZZ4 Ultrasonography of Heart with Aorta, Transesophageal (ICD-10-PCS; 2021-05-11)
PROC: 05753ZZ Dilation of Right Subclavian Vein, Percutaneous Approach (ICD-10-PCS; 2021-05-14)
PROC: B51MYZZ Fluoroscopy of Right Upper Extremity Veins using Other Contrast (ICD-10-PCS; 2021-05-14)
PROC: 02HV33Z Insertion of Infusion Device into Superior Vena Cava, Percutaneous Approach (ICD-10-PCS; 2021-05-15)
PROC: B548ZZA Ultrasonography of Superior Vena Cava, Guidance (ICD-10-PCS; 2021-05-15)
PROC: B41GYZZ Fluoroscopy of Left Lower Extremity Arteries using Other Contrast (ICD-10-PCS; 2021-05-15)
PROC: 0Y6Q0Z0 Detachment at Left 1st Toe, Complete, Open Approach (ICD-10-PCS; 2021-05-20)
PROC: 0Y6P0Z0 Detachment at Right 1st Toe, Complete, Open Approach (ICD-10-PCS; 2021-05-20)
DX: I73.9 Peripheral vascular disease, unspecified (principal); I33.0 Acute and subacute infective endocarditis; N18.6 End stage renal disease; M86.8X7 Other osteomyelitis, ankle and foot; I82.621 Acute embolism and thrombosis of deep veins of right upper extremity; E87.1 Hypo-osmolality and hyponatremia; D68.69 Other thrombophilia; N25.81 Secondary hyperparathyroidism of renal origin; I31.3 Pericardial effusion (noninflammatory); I82.B11 Acute embolism and thrombosis of right subclavian vein; I12.0 Hypertensive chronic kidney disease with stage 5 chronic kidney disease or end stage renal disease; E44.0 Moderate protein-calorie malnutrition; Z20.822 Contact with and (suspected) exposure to COVID-19; D63.1 Anemia in chronic kidney disease; K59.00 Constipation, unspecified; E88.09 Other disorders of plasma-protein metabolism, not elsewhere classified; E87.5 Hyperkalemia; I48.0 Paroxysmal atrial fibrillation; Z53.9 Procedure and treatment not carried out, unspecified reason; M19.90 Unspecified osteoarthritis, unspecified site; Z99.2 Dependence on renal dialysis; Z91.040 Latex allergy status; Z91.010 Allergy to peanuts; Z91.018 Allergy to other foods; Z91.048 Other nonmedicinal substance allergy status; Z68.26 Body mass index [BMI] 26.0-26.9, adult; Z86.79 Personal history of other diseases of the circulatory system; Z87.01 Personal history of pneumonia (recurrent); Z86.16 Personal history of COVID-19; Z90.49 Acquired absence of other specified parts of digestive tract
CPT/HCPCS: 36415; 36569; 71045; 72100; 73630; 73718; 76942; 80048; 80053; 80061; 80202; 82550; 82565; 82728; 83540; 83550; 83735; 84100; 84550; 85014; 85018; 85025; 85049; 85610; 85730; 86850; 86900; 86901; 86920; 87040; 87081; 87340; 87426; 90935; 93005; 93306; 93312; 93925; 93971; 94644; 96365; 96375; 97110; 97530; 99152; 99153; C1724; C1769; C9113; G0378; J0696; J1815; J1885; J2001; J2250; J2405; J2704; J3490; J7060; Q9967

== ENCOUNTER 2021-07-15 10:36 | Inpatient (IN) | payer MEDICARE, MEDICAID ==
[~2021-07-15] VITALS: Ht 180.3 cm; Wt 92.2 kg
[~2021-07-15 10:36] MED LIST: ASCO-22 PO; ASPI-378 PO; B-CO1TAB33 PO; DILT120C12 PO; DOCU100T15 PO; PANT40TA2 PO; RIVA10TA PO; SEVE800T8 PO; TAMS0.4C36 PO
[2021-07-15 12:34] LABS: Basophils # (auto) 0.1 10 ^3/uL (0-0.2); Basophils % (auto) 0.5 % (0.0-2.0); Eosinophils # (auto) 0 10 ^3/uL (0-0.8); Eosinophils % (auto) 0.2 % (0.0-7.0); Hematocrit 34.8 % (41.0-53.0); Hemoglobin 10.9 g/dL (13.5-17.5); Lymphocytes # (auto) 0.7 10 ^3/uL (0.4-5.4); Lymphocytes % (auto) 3.9 % (10.0-50.0); Mean Corpuscular Hemoglobin 25.8 pg (28.0-32.0); Mean Corpuscular Hgb Conc. 31.2 g/dL (32.0-36.0); Mean Corpuscular Volume 82.8 fL (80.0-100.0); Monocytes # (auto) 1.9 10 ^3/uL (0-1.3); Monocytes % (auto) 10.9 % (0.0-12.0); Neutrophils # (auto) 14.8 10 ^3/uL (1.6-8.6); Neutrophils % (auto) 84.5 % (37.0-80.0); Nucleated Red Blood Cells % 0.1 %; Red Blood Cells 4.21 10^6/uL (4.5-5.90); Red Cell Distribution Width 18.2 % (11.8-14.3); White Blood Cell 17.5 10^3/uL (4.4-10.8)
[2021-07-15 12:44] LABS: Bilirubin, Total 0.3 mg/dL (0.2-1.0); Total Protein 6.5 g/dL (6.4-8.2)
[2021-07-15 12:50] LABS: Albumin 1.4 g/dL (3.4-5.0); Potassium 4.9 mmol/L (3.5-5.1)
[2021-07-15 12:51] LABS: BUN/Creatinine Ratio 9.1; Calcium 10.1 mg/dL (8.5-10.1)
[2021-07-15] MEDS ORDERED: HYDROmorphone HCL 2 MG/ML VL IV ONE (13:45)
[2021-07-15] MEDS ORDERED: ONDANSETRON HCL 4 MG/2 ML VIAL IV ONE (13:45)
[2021-07-15] MEDS ORDERED: cefTRIAXone 1GM/50ML D5W 50 ML IV ONE (13:45)
[2021-07-15] MEDS ORDERED: FUROSEMIDE 40 MG/4 ML VIAL IV ONE (15:00)
[2021-07-15] MEDS ORDERED: ENOXAPARIN SOD 60 MG/0.6 ML SYRINGE SC ONE (15:00)
[2021-07-15] MEDS ORDERED: CALCIUM CHL 100MG/ML 1,000 MG in D5W 5% 100 ML IV ONE (15:00)
[2021-07-15] MEDS ORDERED: ALBUTEROL SULF 2.5 MG/0.5ML(0.5%) NEB SOLN NEB ONE (15:00)
[2021-07-15] MEDS ORDERED: InsuLIN REG 1unit/0.01ml Soln (100units/ml) IV ONE (15:00)
[2021-07-15] MEDS ORDERED: SODIUM BICARBONATE 8.4% INJ 50ML SYRINGE IV ONE (15:00)
[2021-07-15] MEDS ORDERED: DEXTROSE (50%) 50ML SYRG IV ONE (15:00)
[2021-07-15] MEDS ORDERED: CALCITRIOL 1 MCG/ML AMPULE IV ONE (15:30)
[2021-07-15] MEDS ORDERED: VANCOMYCIN PER PHARMACY 0 MG IV SCH (15:30)
[2021-07-15] MEDS ORDERED: PIPERACILLIN-TAZOB 2.25GM 50 ML IV ONE (15:30)
[2021-07-15] MEDS ORDERED: ENOXAPARIN SOD 100 MG/1 ML SYRINGE SC SCH (15:31)
[2021-07-15] MEDS ORDERED: NITROGLYCERIN 0.4 MG SL TAB SL PRN ×2 (15:45→18:00)
[2021-07-15] MEDS ORDERED: MORPHINE SULFATE INJECTION 2 MG/ML SYRG IV PRN ×2 (15:45→18:00)
[2021-07-15] MEDS ORDERED: ALBUMIN 25% 100 ML IV ONE (16:00)
[2021-07-15 16:08] LABS: Magnesium 3.1 mg/dL (1.6-2.6)
[2021-07-15] MEDS ORDERED: METO25TA93 PO (16:15)
[2021-07-15] MEDS ORDERED: AML5T PO (16:15)
[2021-07-15 16:30] LABS: INR 1.09 (0.9-1.15); Partial Thromboplastin Time 28.5 sec (23.6-33.0)
[2021-07-15 16:34] LABS: Phosphorus 9.7 mg/dL (2.5-4.90)
[2021-07-15] MEDS ORDERED: ZOLEDRONIC ACID 4 MG in SODIUM CHL 0.9% 100 ML IV ONE (17:00)
[2021-07-15] MEDS ORDERED: hydrALAZINE HCL 20 MG/ML VL IV PRN (18:00)
[2021-07-15] MEDS ORDERED: LORazepam 0.5 MG TAB PO PRN (18:00)
[2021-07-15] MEDS ORDERED: DOCUSATE SOD 100 MG CAP PO PRN (18:00)
[2021-07-15] MEDS ORDERED: CALCIUM W/VIT D (600MG/400IU) TAB PO SCH (18:00)
[2021-07-15] MEDS ORDERED: PANTOPRAZOLE 40 MG/10 ML VIAL INJ IV ONE (18:00)
[2021-07-15] MEDS ORDERED: ACETAMINOPHEN 325 MG TAB PO PRN (18:00)
[2021-07-15] MEDS ORDERED: VANCOMYCIN 1GM/250ML 250 ML IV ONE (18:00)
[2021-07-15] MEDS ORDERED: ONDANSETRON HCL 4 MG/2 ML VIAL IV PRN (18:00)
[2021-07-15] MEDS ORDERED: ATORVASTATIN 20 MG TAB PO ONE (18:00)
[2021-07-15] MEDS ORDERED: METOPROLOL SUCCINATE XL 50 MG TAB PO ONE (18:00)
[2021-07-15] MEDS ORDERED: ZOLEDRONIC ACID 2 MG in SODIUM CHL 0.9% 100 ML IV ONE (18:00)
[2021-07-15] MEDS: TAMSULOSIN HYDROCHLORIDE 0.4 MG CAP PO SCH (19:08)
[2021-07-15] MEDS: SEVELAMER 800 MG TAB PO SCH (19:09)
[2021-07-15 19:31] LABS: INR 1.12 (0.9-1.15)
[2021-07-15] MEDS: CINACALCET HYDROCHLORIDE 30 MG TAB PO SCH (22:00)
[2021-07-15] MEDS: ATORVASTATIN 20 MG TAB PO SCH (22:26)
[2021-07-15] MEDS: SODIUM CHLORIDE 0.9% 1,000 ML IV SCH (22:35)
[2021-07-16] MEDS: PIPERACILLIN-TAZOB 2.25GM 50 ML IV SCH ×4 (01:12→23:57)
[2021-07-16 01:34] VITALS: BP 130/62
[2021-07-16] MEDS: PERITONEAL DIALYSIS 2.5% SOLN 2,000 ML IP SCH ×3 (02:40→15:33)
[2021-07-16] MEDS: ALBUMIN 25% 100 ML IV SCH ×3 (04:22→20:21)
[2021-07-16 05:00] VITALS: BP 97/64
[2021-07-16 09:00] VITALS: BP 99/60
[2021-07-16] MEDS: PANTOPRAZOLE 40 MG/10 ML VIAL INJ IV SCH (09:09)
[2021-07-16] MEDS: SEVELAMER 800 MG TAB PO SCH ×3 (09:10→17:42)
[2021-07-16] MEDS: ASPirin 81 mg TAB PO SCH (09:11)
[2021-07-16] MEDS: dilTIAZem 120MG ER CAP PO SCH (09:12)
[2021-07-16] MEDS: B-COMPLEX W/ C & FOLIC ACID(NEPHROVITE TAB) PO SCH (09:13)
[2021-07-16] MEDS: CINACALCET HYDROCHLORIDE 30 MG TAB PO SCH ×2 (09:13→20:21)
[2021-07-16] MEDS: RIVAROXABAN 10 MG TAB PO SCH ×2 (09:14→20:21)
[2021-07-16] MEDS ORDERED: METOPROLOL SUCCINATE XL 50 MG TAB PO SCH (10:00)
[2021-07-16 13:00] VITALS: BP 111/56
[2021-07-16] MEDS ORDERED: HEPARIN IN NS 1000Units/500mL 0 ML ONE (14:08)
[2021-07-16] MEDS ORDERED: LIDOCAINE 2%HCL (LOCAL ANESTH.) INJ 20ML MDV ONE (14:08)
[2021-07-16] MEDS: MORPHINE SULFATE INJECTION 2 MG/ML SYRG IV PRN (16:08)
[2021-07-16 17:00] VITALS: BP 132/69
[2021-07-16] MEDS: TAMSULOSIN HYDROCHLORIDE 0.4 MG CAP PO SCH (17:42)
[2021-07-16] MEDS ORDERED: ALBUTEROL SULF 2.5 MG/0.5ML(0.5%) NEB SOLN NEB ONE (18:45)
[2021-07-16] MEDS ORDERED: SODIUM BICARBONATE 8.4% INJ 50ML SYRINGE IV ONE (18:45)
[2021-07-16] MEDS ORDERED: DEXTROSE (50%) 50ML SYRG IV ONE (18:45)
[2021-07-16] MEDS ORDERED: InsuLIN REG 1unit/0.01ml Soln (100units/ml) IV ONE (18:45)
[2021-07-16] MEDS: ATORVASTATIN 20 MG TAB PO SCH (20:21)
[2021-07-16 22:00] VITALS: BP 102/60
[2021-07-16] MEDS: SODIUM CHLORIDE 0.9% 1,000 ML IV SCH (23:57)
[2021-07-17 05:00] VITALS: BP 140/77
[2021-07-17 06:39] LABS: Basophils # (auto) 0.2 10 ^3/uL (0-0.2); Eosinophils # (auto) 0.1 10 ^3/uL (0-0.8); Lymphocytes # (auto) 0.4 10 ^3/uL (0.4-5.4); Neutrophils # (auto) 11.4 10 ^3/uL (1.6-8.6)
[2021-07-17 06:41] LABS: Basophils % (auto) 1.5 % (0.0-2.0); Hematocrit 30.6 % (41.0-53.0); Lymphocytes % (auto) 3.1 % (10.0-50.0); Mean Corpuscular Hemoglobin 25.9 pg (28.0-32.0); Mean Corpuscular Hgb Conc. 32.8 g/dL (32.0-36.0); Monocytes # (auto) 1.5 10 ^3/uL (0-1.3); Neutrophils % (auto) 83.4 % (37.0-80.0); Nucleated Red Blood Cells % 0.1 %; Red Blood Cells 3.88 10^6/uL (4.5-5.90); Red Cell Distribution Width 18.5 % (11.8-14.3); White Blood Cell 13.6 10^3/uL (4.4-10.8)
[2021-07-17] MEDS ORDERED: SODIUM CHL 0.9% 1000 ML BAG XX ONE (07:00)
[2021-07-17 07:15] LABS: Albumin 2.1 g/dL (3.4-5.0); Calcium 9.8 mg/dL (8.5-10.1); Magnesium 3.2 mg/dL (1.6-2.6); Potassium 5.3 mmol/L (3.5-5.1)
[2021-07-17 07:17] LABS: % Iron Saturation 11.4 % (20-55)
[2021-07-17 07:21] LABS: Bilirubin, Total 0.4 mg/dL (0.2-1.0); Total Protein 6.5 g/dL (6.4-8.2)
[2021-07-17 07:53] LABS: BUN/Creatinine Ratio 10.7
[2021-07-17] MEDS: PIPERACILLIN-TAZOB 2.25GM 50 ML IV SCH ×2 (08:00→16:00)
[2021-07-17] MEDS: SEVELAMER 800 MG TAB PO SCH ×3 (08:00→18:16)
[2021-07-17 09:00] VITALS: BP 121/77
[2021-07-17] MEDS: PANTOPRAZOLE 40 MG/10 ML VIAL INJ IV SCH (10:00)
[2021-07-17] MEDS: RIVAROXABAN 10 MG TAB PO SCH ×2 (10:00→22:00)
[2021-07-17] MEDS: CINACALCET HYDROCHLORIDE 30 MG TAB PO SCH ×2 (10:00→21:53)
[2021-07-17] MEDS: ASPirin 81 mg TAB PO SCH (10:00)
[2021-07-17] MEDS: dilTIAZem 120MG ER CAP PO SCH (10:00)
[2021-07-17] MEDS: B-COMPLEX W/ C & FOLIC ACID(NEPHROVITE TAB) PO SCH (10:00)
[2021-07-17] MEDS ORDERED: CALCITRIOL 1 MCG/ML AMPULE IV SCH (10:00)
[2021-07-17 13:00] VITALS: BP 89/56
[2021-07-17 16:37] VITALS: BP 151/77
[2021-07-17] MEDS: PERITONEAL DIALYSIS 2.5% SOLN 2,000 ML IP SCH ×2 (18:00→19:51)
[2021-07-17] MEDS: SODIUM CHLORIDE 0.9% 1,000 ML IV SCH (18:16)
[2021-07-17] MEDS: TAMSULOSIN HYDROCHLORIDE 0.4 MG CAP PO SCH (18:17)
[2021-07-17] MEDS ORDERED: EPOETIN ALFA-EPBX 10,000 UNIT/1ML VIAL SC ONE (21:00)
[2021-07-17 22:00] VITALS: BP 146/101
[2021-07-17] MEDS: ATORVASTATIN 20 MG TAB PO SCH (22:00)
[2021-07-18] MEDS: PERITONEAL DIALYSIS 2.5% SOLN 2,000 ML IP SCH ×4 (00:10→18:00)
[2021-07-18] MEDS: PIPERACILLIN-TAZOB 2.25GM 50 ML IV SCH ×3 (00:20→16:00)
[2021-07-18 05:00] VITALS: BP 141/96
[2021-07-18 05:11] LABS: Mean Corpuscular Hemoglobin 25.4 pg (28.0-32.0); Red Cell Distribution Width 18.8 % (11.8-14.3)
[2021-07-18 05:14] LABS: Basophils # (auto) 0.1 10 ^3/uL (0-0.2); Basophils % (auto) 1.1 % (0.0-2.0); Eosinophils # (auto) 0.2 10 ^3/uL (0-0.8); Eosinophils % (auto) 1.6 % (0.0-7.0); Hematocrit 29.4 % (41.0-53.0); Hemoglobin 9.6 g/dL (13.5-17.5); Lymphocytes # (auto) 0.5 10 ^3/uL (0.4-5.4); Mean Corpuscular Hgb Conc. 32.7 g/dL (32.0-36.0); Mean Corpuscular Volume 77.8 fL (80.0-100.0); Monocytes # (auto) 1.6 10 ^3/uL (0-1.3); Monocytes % (auto) 12.9 % (0.0-12.0); Neutrophils # (auto) 10.3 10 ^3/uL (1.6-8.6); Neutrophils % (auto) 80.4 % (37.0-80.0); Red Blood Cells 3.78 10^6/uL (4.5-5.90); White Blood Cell 12.8 10^3/uL (4.4-10.8)
[2021-07-18 05:48] LABS: Potassium 5.3 mmol/L (3.5-5.1)
[2021-07-18 05:49] LABS: BUN/Creatinine Ratio 10.5
[2021-07-18] MEDS ORDERED: SODIUM CHL 0.9% 1000 ML BAG XX ONE (07:00)
[2021-07-18] MEDS: SEVELAMER 800 MG TAB PO SCH ×3 (08:13→18:00)
[2021-07-18 09:00] VITALS: BP 129/107
[2021-07-18] MEDS: B-COMPLEX W/ C & FOLIC ACID(NEPHROVITE TAB) PO SCH (09:52)
[2021-07-18] MEDS: ASPirin 81 mg TAB PO SCH (09:52)
[2021-07-18] MEDS: dilTIAZem 120MG ER CAP PO SCH (09:52)
[2021-07-18] MEDS: MORPHINE SULFATE INJECTION 2 MG/ML SYRG IV PRN ×3 (09:54→21:30)
[2021-07-18] MEDS: CINACALCET HYDROCHLORIDE 30 MG TAB PO SCH ×2 (10:00→22:19)
[2021-07-18] MEDS: PANTOPRAZOLE 40 MG TAB PO SCH (10:00)
[2021-07-18 12:58] VITALS: BP 112/88
[2021-07-18 17:01] VITALS: BP 131/95
[2021-07-18] MEDS: TAMSULOSIN HYDROCHLORIDE 0.4 MG CAP PO SCH (17:49)
[2021-07-18] MEDS: SODIUM CHLORIDE 0.9% 1,000 ML IV SCH (18:00)
[2021-07-18 22:00] VITALS: BP 83/39
[2021-07-18] MEDS: ATORVASTATIN 20 MG TAB PO SCH (22:00)
[2021-07-19] MEDS: PIPERACILLIN-TAZOB 2.25GM 50 ML IV SCH ×3 (00:04→16:00)
[2021-07-19] MEDS: MORPHINE SULFATE INJECTION 2 MG/ML SYRG IV PRN ×2 (02:45→12:45)
[2021-07-19 05:00] VITALS: BP 88/70
[2021-07-19 05:28] LABS: Basophils # (auto) 0.1 10 ^3/uL (0-0.2); Basophils % (auto) 0.7 % (0.0-2.0); Eosinophils # (auto) 0.1 10 ^3/uL (0-0.8); Hematocrit 29.3 % (41.0-53.0); Hemoglobin 9.5 g/dL (13.5-17.5); Lymphocytes # (auto) 0.5 10 ^3/uL (0.4-5.4); Lymphocytes % (auto) 3.3 % (10.0-50.0); Mean Corpuscular Hemoglobin 25.1 pg (28.0-32.0); Mean Corpuscular Hgb Conc. 32.3 g/dL (32.0-36.0); Mean Corpuscular Volume 77.6 fL (80.0-100.0); Monocytes # (auto) 1.9 10 ^3/uL (0-1.3); Neutrophils # (auto) 12.2 10 ^3/uL (1.6-8.6); Red Blood Cells 3.77 10^6/uL (4.5-5.90); Red Cell Distribution Width 18.6 % (11.8-14.3); White Blood Cell 14.9 10^3/uL (4.4-10.8)
[2021-07-19] MEDS: PERITONEAL DIALYSIS 2.5% SOLN 2,000 ML IP SCH ×4 (06:00→17:43)
[2021-07-19 06:25] LABS: BUN/Creatinine Ratio 10.4; Calcium 8.8 mg/dL (8.5-10.1); Potassium 5.1 mmol/L (3.5-5.1)
[2021-07-19] MEDS: SEVELAMER 800 MG TAB PO SCH ×3 (08:00→17:43)
[2021-07-19 08:53] VITALS: BP 160/66
[2021-07-19] MEDS: PANTOPRAZOLE 40 MG TAB PO SCH (09:52)
[2021-07-19] MEDS: CINACALCET HYDROCHLORIDE 30 MG TAB PO SCH ×2 (09:52→22:00)
[2021-07-19] MEDS: ASPirin 81 mg TAB PO SCH (09:52)
[2021-07-19] MEDS: B-COMPLEX W/ C & FOLIC ACID(NEPHROVITE TAB) PO SCH (09:52)
[2021-07-19] MEDS: dilTIAZem 120MG ER CAP PO SCH (09:52)
[2021-07-19 12:40] VITALS: BP 135/90
[2021-07-19 17:05] VITALS: BP 124/63
[2021-07-19] MEDS: SODIUM CHLORIDE 0.9% 1,000 ML IV SCH ×2 (17:43→18:51)
[2021-07-19] MEDS: TAMSULOSIN HYDROCHLORIDE 0.4 MG CAP PO SCH (17:43)
[2021-07-19] MEDS ORDERED: VANCOMYCIN 500 MG in D5W 5% 100 ML IV ONE ×2 (18:00→20:00)
[2021-07-19 22:00] VITALS: BP 94/64
[2021-07-19] MEDS: ATORVASTATIN 20 MG TAB PO SCH (22:00)
[2021-07-19] MEDS ORDERED: VANCOMYCIN 1GM/250ML 250 ML IV ONE (22:02)
[2021-07-20] MEDS: MORPHINE SULFATE INJECTION 2 MG/ML SYRG IV PRN ×3 (01:01→20:40)
[2021-07-20] MEDS: PIPERACILLIN-TAZOB 2.25GM 50 ML IV SCH ×4 (02:30→23:46)
[2021-07-20 05:00] VITALS: BP 86/39
[2021-07-20] MEDS: SEVELAMER 800 MG TAB PO SCH ×3 (08:00→17:53)
[2021-07-20 09:00] VITALS: BP 98/57
[2021-07-20 09:03] LABS: Basophils # (auto) 0.1 10 ^3/uL (0-0.2); Basophils % (auto) 0.9 % (0.0-2.0); Eosinophils # (auto) 0.1 10 ^3/uL (0-0.8); Lymphocytes # (auto) 0.5 10 ^3/uL (0.4-5.4)
[2021-07-20 09:04] LABS: Eosinophils % (auto) 0.6 % (0.0-7.0); Hematocrit 26.1 % (41.0-53.0); Hemoglobin 8.6 g/dL (13.5-17.5); Lymphocytes % (auto) 2.9 % (10.0-50.0); Mean Corpuscular Hemoglobin 25.5 pg (28.0-32.0); Mean Corpuscular Hgb Conc. 32.8 g/dL (32.0-36.0); Mean Corpuscular Volume 77.8 fL (80.0-100.0); Monocytes # (auto) 1.4 10 ^3/uL (0-1.3); Monocytes % (auto) 9.2 % (0.0-12.0); Neutrophils # (auto) 13.5 10 ^3/uL (1.6-8.6); Neutrophils % (auto) 86.4 % (37.0-80.0); Red Blood Cells 3.35 10^6/uL (4.5-5.90); Red Cell Distribution Width 18.6 % (11.8-14.3); White Blood Cell 15.6 10^3/uL (4.4-10.8)
[2021-07-20 09:17] LABS: INR 1.13 (0.9-1.15); Partial Thromboplastin Time 31.3 sec (23.6-33.0)
[2021-07-20 09:24] LABS: Albumin 1.7 g/dL (3.4-5.0); Calcium 9.3 mg/dL (8.5-10.1); Potassium 4.9 mmol/L (3.5-5.1)
[2021-07-20 09:27] LABS: Bilirubin, Total 0.3 mg/dL (0.2-1.0)
[2021-07-20 09:52] LABS: BUN/Creatinine Ratio 11.6
[2021-07-20] MEDS: CINACALCET HYDROCHLORIDE 30 MG TAB PO SCH ×2 (10:00→20:39)
[2021-07-20] MEDS: B-COMPLEX W/ C & FOLIC ACID(NEPHROVITE TAB) PO SCH (10:00)
[2021-07-20] MEDS: PANTOPRAZOLE 40 MG TAB PO SCH (10:00)
[2021-07-20] MEDS: ASPirin 81 mg TAB PO SCH (10:00)
[2021-07-20] MEDS ORDERED: LIDOCAINE 2%HCL (LOCAL ANESTH.) INJ 20ML MDV ONE (10:55)
[2021-07-20] MEDS ORDERED: IODIXANOL 320MG/ML 100ML BTL IV ONE (10:55)
[2021-07-20] MEDS ORDERED: HEPARIN IN NS 1000Units/500mL 1,500 ML ONE (10:55)
[2021-07-20] MEDS ORDERED: ANGIOMAX 250 MG VIAL IV ONE (11:11)
[2021-07-20] MEDS ORDERED: SODIUM CHL 0.9% 50 ML ONE (11:12)
[2021-07-20] MEDS ORDERED: fentaNYL CITRATE 100 MCG/2 ML VL ONE (11:12)
[2021-07-20] MEDS ORDERED: MIDAZOLAM HCL 2MG/2ML 2ml VIAL (1mg/ml) ONE (11:12)
[2021-07-20] MEDS ORDERED: diphenhdrAMINE HCL 50 MG/1 ML VL ONE (11:22)
[2021-07-20] MEDS ORDERED: VERAPAMIL 2.5MG/ML INJ 2ML VIAL IV ONE (11:26)
[2021-07-20] MEDS: PERITONEAL DIALYSIS 2.5% SOLN 2,000 ML IP SCH ×5 (12:00→23:46)
[2021-07-20 17:00] VITALS: BP 131/74
[2021-07-20] MEDS: TAMSULOSIN HYDROCHLORIDE 0.4 MG CAP PO SCH (17:53)
[2021-07-20] MEDS: Nepro With Carbsteady ButterPecan 8oz Carton PO SCH (18:00)
[2021-07-20] MEDS: ATORVASTATIN 20 MG TAB PO SCH (20:40)
[2021-07-20 22:00] VITALS: BP 116/64
[2021-07-20] MEDS ORDERED: dilTIAZem 25 MG/5 ML VIAL IV ONE (23:15)
[2021-07-21 00:41] VITALS: BP 110/62
[2021-07-21] MEDS: MORPHINE SULFATE INJECTION 2 MG/ML SYRG IV PRN ×2 (04:45→23:43)
[2021-07-21 05:00] VITALS: BP 113/78
[2021-07-21] MEDS ORDERED: DIGOXIN (250MCG/ML) 2 ML AMPULE IV ONE (05:00)
[2021-07-21 05:26] LABS: Eosinophils # (auto) 0.2 10 ^3/uL (0-0.8); Eosinophils % (auto) 1.3 % (0.0-7.0); Monocytes # (auto) 1.7 10 ^3/uL (0-1.3)
[2021-07-21 05:30] LABS: Basophils # (auto) 0.1 10 ^3/uL (0-0.2); Basophils % (auto) 0.8 % (0.0-2.0); Hematocrit 24.3 % (41.0-53.0); Lymphocytes # (auto) 0.5 10 ^3/uL (0.4-5.4); Lymphocytes % (auto) 3.5 % (10.0-50.0); Mean Corpuscular Hemoglobin 25.4 pg (28.0-32.0); Monocytes % (auto) 12.3 % (0.0-12.0); Neutrophils # (auto) 11.3 10 ^3/uL (1.6-8.6); Neutrophils % (auto) 82.1 % (37.0-80.0); Nucleated Red Blood Cells % 0.1 %; Red Blood Cells 3.15 10^6/uL (4.5-5.90); Red Cell Distribution Width 18.5 % (11.8-14.3); White Blood Cell 13.8 10^3/uL (4.4-10.8)
[2021-07-21 05:49] LABS: Calcium 9.3 mg/dL (8.5-10.1); Potassium 4.9 mmol/L (3.5-5.1)
[2021-07-21] MEDS: PERITONEAL DIALYSIS 2.5% SOLN 2,000 ML IP SCH ×3 (06:02→18:21)
[2021-07-21 06:32] LABS: BUN/Creatinine Ratio 11.6
[2021-07-21] MEDS: PIPERACILLIN-TAZOB 2.25GM 50 ML IV SCH ×3 (07:55→23:32)
[2021-07-21] MEDS: SEVELAMER 800 MG TAB PO SCH ×3 (07:55→18:21)
[2021-07-21] MEDS: Nepro With Carbsteady ButterPecan 8oz Carton PO SCH ×2 (08:00→18:00)
[2021-07-21 09:00] VITALS: BP 116/50
[2021-07-21] MEDS: PANTOPRAZOLE 40 MG TAB PO SCH (10:17)
[2021-07-21] MEDS: CINACALCET HYDROCHLORIDE 30 MG TAB PO SCH ×2 (10:17→20:51)
[2021-07-21] MEDS: B-COMPLEX W/ C & FOLIC ACID(NEPHROVITE TAB) PO SCH (10:17)
[2021-07-21] MEDS: ASPirin 81 mg TAB PO SCH (10:17)
[2021-07-21] MEDS: HYDROcodone-ACET 5/325MG TAB PO PRN (12:25)
[2021-07-21 13:00] VITALS: BP 102/74
[2021-07-21 17:00] VITALS: BP 112/70
[2021-07-21] MEDS: SODIUM CHLORIDE 0.9% 1,000 ML IV SCH (18:21)
[2021-07-21] MEDS: TAMSULOSIN HYDROCHLORIDE 0.4 MG CAP PO SCH (18:21)
[2021-07-21] MEDS: ATORVASTATIN 20 MG TAB PO SCH (20:51)
[2021-07-21 22:00] VITALS: BP 95/78
[2021-07-22] MEDS: PERITONEAL DIALYSIS 2.5% SOLN 2,000 ML IP SCH ×4 (00:26→18:55)
[2021-07-22 05:00] VITALS: BP 98/38
[2021-07-22] MEDS ORDERED: DAKINS HALF STR 0.25% (NaHypochlorite) 473 ML TOPICAL SOL TOP ONE (07:30)
[2021-07-22] MEDS: SEVELAMER 800 MG TAB PO SCH ×3 (08:00→17:42)
[2021-07-22] MEDS: Nepro With Carbsteady ButterPecan 8oz Carton PO SCH ×2 (08:00→17:42)
[2021-07-22] MEDS: PIPERACILLIN-TAZOB 2.25GM 50 ML IV SCH ×2 (08:09→16:39)
[2021-07-22] MEDS: MORPHINE SULFATE INJECTION 2 MG/ML SYRG IV PRN ×3 (08:16→22:41)
[2021-07-22 09:00] VITALS: BP 173/101
[2021-07-22] MEDS: B-COMPLEX W/ C & FOLIC ACID(NEPHROVITE TAB) PO SCH (10:00)
[2021-07-22] MEDS: ASPirin 81 mg TAB PO SCH (10:00)
[2021-07-22] MEDS: CINACALCET HYDROCHLORIDE 30 MG TAB PO SCH ×2 (10:00→22:25)
[2021-07-22] MEDS: PANTOPRAZOLE 40 MG TAB PO SCH (10:00)
[2021-07-22 13:00] VITALS: BP 90/65
[2021-07-22 16:56] VITALS: BP 129/51
[2021-07-22] MEDS: TAMSULOSIN HYDROCHLORIDE 0.4 MG CAP PO SCH (17:42)
[2021-07-22] MEDS: SODIUM CHLORIDE 0.9% 1,000 ML IV SCH (17:42)
[2021-07-22 22:00] VITALS: BP 128/66
[2021-07-22] MEDS: ATORVASTATIN 20 MG TAB PO SCH (22:26)
[2021-07-23] MEDS: PIPERACILLIN-TAZOB 2.25GM 50 ML IV SCH ×3 (00:58→16:00)
[2021-07-23] MEDS: PERITONEAL DIALYSIS 2.5% SOLN 2,000 ML IP SCH ×4 (00:59→18:30)
[2021-07-23 05:00] VITALS: BP 132/64
[2021-07-23 05:52] LABS: Potassium 4.1 mmol/L (3.5-5.1)
[2021-07-23 05:57] LABS: Hemoglobin 8.2 g/dL (13.5-17.5); Neutrophils # (auto) 11.5 10 ^3/uL (1.6-8.6); White Blood Cell 13.9 10^3/uL (4.4-10.8)
[2021-07-23 05:59] LABS: Basophils # (auto) 0.1 10 ^3/uL (0-0.2); Basophils % (auto) 0.6 % (0.0-2.0); Eosinophils # (auto) 0.2 10 ^3/uL (0-0.8); Eosinophils % (auto) 1.4 % (0.0-7.0); Hematocrit 24.1 % (41.0-53.0); Lymphocytes # (auto) 0.7 10 ^3/uL (0.4-5.4); Lymphocytes % (auto) 4.7 % (10.0-50.0); Mean Corpuscular Hemoglobin 26.3 pg (28.0-32.0); Mean Corpuscular Hgb Conc. 34.1 g/dL (32.0-36.0); Monocytes # (auto) 1.5 10 ^3/uL (0-1.3); Monocytes % (auto) 10.5 % (0.0-12.0); Neutrophils % (auto) 82.8 % (37.0-80.0); Red Blood Cells 3.13 10^6/uL (4.5-5.90); Red Cell Distribution Width 18.6 % (11.8-14.3)
[2021-07-23 06:00] LABS: Albumin 1.6 g/dL (3.4-5.0); BUN/Creatinine Ratio 11.2; Bilirubin, Total 0.3 mg/dL (0.2-1.0); Calcium 8.6 mg/dL (8.5-10.1); Total Protein 5.8 g/dL (6.4-8.2)
[2021-07-23] MEDS: Nepro With Carbsteady ButterPecan 8oz Carton PO SCH ×2 (08:00→18:06)
[2021-07-23 09:00] VITALS: BP 99/45
[2021-07-23] MEDS: SEVELAMER 800 MG TAB PO SCH ×3 (09:57→18:30)
[2021-07-23] MEDS: ASPirin 81 mg TAB PO SCH (09:57)
[2021-07-23] MEDS: PANTOPRAZOLE 40 MG TAB PO SCH (09:57)
[2021-07-23] MEDS: B-COMPLEX W/ C & FOLIC ACID(NEPHROVITE TAB) PO SCH (09:58)
[2021-07-23] MEDS: CINACALCET HYDROCHLORIDE 30 MG TAB PO SCH (10:01)
[2021-07-23 12:55] VITALS: BP 102/61
[2021-07-23 13:09] VITALS: BP 102/61
[2021-07-23 17:00] VITALS: BP 135/76
[2021-07-23] MEDS: SODIUM CHLORIDE 0.9% 1,000 ML IV SCH (18:00)
[2021-07-23] MEDS: TAMSULOSIN HYDROCHLORIDE 0.4 MG CAP PO SCH (18:30)
[2021-07-23 22:00] VITALS: BP 120/75
[2021-07-24] MEDS: ATORVASTATIN 20 MG TAB PO SCH ×2 (00:21→22:49)
[2021-07-24] MEDS: CINACALCET HYDROCHLORIDE 30 MG TAB PO SCH ×3 (00:21→22:49)
[2021-07-24] MEDS: PERITONEAL DIALYSIS 2.5% SOLN 2,000 ML IP SCH ×2 (00:55→06:29)
[2021-07-24 05:00] VITALS: BP 128/76
[2021-07-24] MEDS: PIPERACILLIN-TAZOB 2.25GM 50 ML IV SCH ×2 (08:00)
[2021-07-24] MEDS: Nepro With Carbsteady ButterPecan 8oz Carton PO SCH ×2 (08:12→17:35)
[2021-07-24 09:00] VITALS: BP 129/75
[2021-07-24] MEDS: ASPirin 81 mg TAB PO SCH (09:32)
[2021-07-24] MEDS: SEVELAMER 800 MG TAB PO SCH ×3 (09:32→18:00)
[2021-07-24] MEDS: B-COMPLEX W/ C & FOLIC ACID(NEPHROVITE TAB) PO SCH (09:33)
[2021-07-24] MEDS: PANTOPRAZOLE 40 MG TAB PO SCH (09:33)
[2021-07-24] MEDS: HYDROcodone-ACET 5/325MG TAB PO PRN (10:38)
[2021-07-24] MEDS ORDERED: SODIUM CHL 0.9% 1000 ML BAG XX ONE (11:15)
[2021-07-24 13:00] VITALS: BP 130/70
[2021-07-24] MEDS: CLINDAMYCIN HCL 150 MG CAP PO SCH ×2 (16:11→22:49)
[2021-07-24 16:56] VITALS: BP 120/68
[2021-07-24] MEDS: SODIUM CHLORIDE 0.9% 1,000 ML IV SCH (17:34)
[2021-07-24] MEDS: TAMSULOSIN HYDROCHLORIDE 0.4 MG CAP PO SCH (18:00)
[2021-07-24] MEDS ORDERED: EPOETIN ALFA-EPBX 10,000 UNIT/1ML VIAL SC ONE (21:00)
[2021-07-24 22:00] VITALS: BP 95/43
[2021-07-25 05:00] VITALS: BP 135/64
[2021-07-25] MEDS: CLINDAMYCIN HCL 150 MG CAP PO SCH ×3 (06:33→22:40)
[2021-07-25] MEDS ORDERED: SODIUM CHL 0.9% 1000 ML BAG XX ONE (07:00)
[2021-07-25] MEDS: levoFLOXacin 250 MG TAB PO SCH (08:40)
[2021-07-25] MEDS: SEVELAMER 800 MG TAB PO SCH ×3 (08:40→17:24)
[2021-07-25] MEDS: Nepro With Carbsteady ButterPecan 8oz Carton PO SCH ×2 (08:40→18:20)
[2021-07-25] MEDS: ASPirin 81 mg TAB PO SCH (08:40)
[2021-07-25] MEDS: B-COMPLEX W/ C & FOLIC ACID(NEPHROVITE TAB) PO SCH (08:41)
[2021-07-25] MEDS: PANTOPRAZOLE 40 MG TAB PO SCH (08:41)
[2021-07-25] MEDS: CINACALCET HYDROCHLORIDE 30 MG TAB PO SCH ×2 (08:41→22:39)
[2021-07-25 09:00] VITALS: BP 106/73
[2021-07-25] MEDS ORDERED: AMIODARONE HCL 200 MG TAB PO ONE (10:15)
[2021-07-25 13:00] VITALS: BP 107/78
[2021-07-25 16:51] VITALS: BP 134/61
[2021-07-25 17:03] LABS: Albumin 1.7 g/dL (3.4-5.0)
[2021-07-25 17:07] LABS: Bilirubin, Direct 0.1 mg/dL (0-0.2); Bilirubin, Total 0.3 mg/dL (0.2-1.0); Total Protein 5.3 g/dL (6.4-8.2)
[2021-07-25] MEDS: TAMSULOSIN HYDROCHLORIDE 0.4 MG CAP PO SCH (17:24)
[2021-07-25] MEDS: SODIUM CHLORIDE 0.9% 1,000 ML IV SCH (17:24)
[2021-07-25 22:00] VITALS: BP 126/68
[2021-07-25] MEDS: AMIODARONE HCL 200 MG TAB PO SCH (22:40)
[2021-07-25] MEDS: ATORVASTATIN 20 MG TAB PO SCH (22:40)
[2021-07-26 04:54] VITALS: BP 98/71
[2021-07-26] MEDS: CLINDAMYCIN HCL 150 MG CAP PO SCH ×3 (06:33→22:04)
[2021-07-26 09:04] VITALS: BP 109/63
[2021-07-26] MEDS: SEVELAMER 800 MG TAB PO SCH ×3 (10:53→18:51)
[2021-07-26] MEDS: Nepro With Carbsteady ButterPecan 8oz Carton PO SCH ×2 (10:53→18:50)
[2021-07-26] MEDS: PANTOPRAZOLE 40 MG TAB PO SCH (10:56)
[2021-07-26] MEDS: AMIODARONE HCL 200 MG TAB PO SCH ×2 (10:56→22:04)
[2021-07-26] MEDS: ASPirin 81 mg TAB PO SCH (10:56)
[2021-07-26] MEDS: CINACALCET HYDROCHLORIDE 30 MG TAB PO SCH ×2 (10:57→22:05)
[2021-07-26] MEDS: METOPROLOL SUCCINATE XL 50 MG TAB PO SCH (10:57)
[2021-07-26] MEDS: B-COMPLEX W/ C & FOLIC ACID(NEPHROVITE TAB) PO SCH (10:58)
[2021-07-26 13:00] VITALS: BP 77/55
[2021-07-26] MEDS: HYDROcodone-ACET 5/325MG TAB PO PRN ×2 (14:51→19:49)
[2021-07-26 17:43] VITALS: BP 87/44
[2021-07-26] MEDS: SODIUM CHLORIDE 0.9% 1,000 ML IV SCH (18:00)
[2021-07-26] MEDS: TAMSULOSIN HYDROCHLORIDE 0.4 MG CAP PO SCH (18:50)
[2021-07-26 22:00] VITALS: BP 95/70
[2021-07-26] MEDS: ATORVASTATIN 20 MG TAB PO SCH (22:04)
[2021-07-26] MEDS: MORPHINE SULFATE INJECTION 2 MG/ML SYRG IV PRN (23:31)
[2021-07-27] VITALS (10 sets, daily range): BP systolic 104–133; BP diastolic 52–86
[2021-07-27] MEDS: HYDROcodone-ACET 5/325MG TAB PO PRN ×3 (04:39→19:33)
[2021-07-27] MEDS: MORPHINE SULFATE INJECTION 2 MG/ML SYRG IV PRN (05:41)
[2021-07-27] MEDS: CLINDAMYCIN HCL 150 MG CAP PO SCH ×3 (05:41→22:33)
[2021-07-27 06:26] LABS: Basophils # (auto) 0.1 10 ^3/uL (0-0.2); Basophils % (auto) 0.8 % (0.0-2.0); Eosinophils # (auto) 0.1 10 ^3/uL (0-0.8); Eosinophils % (auto) 0.9 % (0.0-7.0); Hematocrit 17.5 % (41.0-53.0); Lymphocytes # (auto) 0.9 10 ^3/uL (0.4-5.4); Lymphocytes % (auto) 5.5 % (10.0-50.0); Mean Corpuscular Hgb Conc. 32.5 g/dL (32.0-36.0); Mean Corpuscular Volume 76.8 fL (80.0-100.0); Monocytes # (auto) 1.8 10 ^3/uL (0-1.3); Monocytes % (auto) 10.4 % (0.0-12.0); Neutrophils # (auto) 13.9 10 ^3/uL (1.6-8.6); Neutrophils % (auto) 82.4 % (37.0-80.0); Red Blood Cells 2.28 10^6/uL (4.5-5.90); Red Cell Distribution Width 18.3 % (11.8-14.3); White Blood Cell 16.9 10^3/uL (4.4-10.8)
[2021-07-27 06:33] LABS: Hemoglobin 5.7 g/dL (13.5-17.5)
[2021-07-27 06:47] LABS: Potassium 4.2 mmol/L (3.5-5.1)
[2021-07-27 06:51] LABS: Albumin 1.6 g/dL (3.4-5.0); BUN/Creatinine Ratio 12.1; Calcium 7.8 mg/dL (8.5-10.1); Magnesium 2.5 mg/dL (1.6-2.6)
[2021-07-27 06:53] LABS: Bilirubin, Total 0.2 mg/dL (0.2-1.0); Total Protein 5.3 g/dL (6.4-8.2)
[2021-07-27] MEDS ORDERED: SODIUM CHL 0.9% 1000 ML BAG XX ONE (07:00)
[2021-07-27] MEDS: SEVELAMER 800 MG TAB PO SCH ×3 (08:00→18:16)
[2021-07-27] MEDS: PANTOPRAZOLE 40 MG TAB PO SCH ×2 (11:14→22:34)
[2021-07-27] MEDS: Nepro With Carbsteady ButterPecan 8oz Carton PO SCH ×2 (15:15→18:15)
[2021-07-27] MEDS: levoFLOXacin 250 MG TAB PO SCH (15:58)
[2021-07-27] MEDS: AMIODARONE HCL 200 MG TAB PO SCH ×2 (15:58→22:33)
[2021-07-27] MEDS: B-COMPLEX W/ C & FOLIC ACID(NEPHROVITE TAB) PO SCH (15:58)
[2021-07-27] MEDS: CINACALCET HYDROCHLORIDE 30 MG TAB PO SCH ×2 (15:59→22:35)
[2021-07-27] MEDS: SUCRALFATE 1 GM/10 ML ORAL SUSP PO SCH ×2 (16:00→22:45)
[2021-07-27] MEDS: METOPROLOL SUCCINATE XL 50 MG TAB PO SCH (16:00)
[2021-07-27] MEDS: SODIUM CHLORIDE 0.9% 1,000 ML IV SCH (18:00)
[2021-07-27] MEDS: TAMSULOSIN HYDROCHLORIDE 0.4 MG CAP PO SCH (18:15)
[2021-07-27 20:30] LABS: Hematocrit 24.2 % (41.0-53.0)
[2021-07-27] MEDS ORDERED: EPOETIN ALFA-EPBX 4,000 UNIT/ML VIAL SC ONE (21:00)
[2021-07-27] MEDS ORDERED: PANTOPRAZOLE 40 MG/10 ML VIAL INJ IV SCH ×2 (22:00)
[2021-07-27] MEDS: ATORVASTATIN 20 MG TAB PO SCH (22:34)
[2021-07-28 05:03] VITALS: BP 105/76
[2021-07-28 05:13] LABS: Hematocrit 22.1 % (41.0-53.0); Hemoglobin 7.2 g/dL (13.5-17.5)
[2021-07-28] MEDS: SUCRALFATE 1 GM/10 ML ORAL SUSP PO SCH ×4 (06:17→21:05)
[2021-07-28] MEDS: CLINDAMYCIN HCL 150 MG CAP PO SCH ×3 (06:17→21:04)
[2021-07-28] MEDS: HYDROcodone-ACET 5/325MG TAB PO PRN ×2 (06:29→20:09)
[2021-07-28 08:54] VITALS: BP 120/77
[2021-07-28] MEDS: AMIODARONE HCL 200 MG TAB PO SCH ×2 (10:00→21:04)
[2021-07-28] MEDS: SEVELAMER 800 MG TAB PO SCH ×3 (10:33→18:32)
[2021-07-28] MEDS: Nepro With Carbsteady ButterPecan 8oz Carton PO SCH ×2 (10:33→18:31)
[2021-07-28] MEDS: PANTOPRAZOLE 40 MG TAB PO SCH ×2 (10:34→21:05)
[2021-07-28] MEDS: CINACALCET HYDROCHLORIDE 30 MG TAB PO SCH ×2 (10:34→21:05)
[2021-07-28] MEDS: B-COMPLEX W/ C & FOLIC ACID(NEPHROVITE TAB) PO SCH (10:34)
[2021-07-28 13:00] VITALS: BP 115/74
[2021-07-28 13:16] LABS: Hepatitis A Ab IgM Negative; Hepatitis B Core IgM Negative; Hepatitis B Surface Antigen Negative (Negative); Hepatitis C Antibody Negative (Negative)
[2021-07-28 16:55] VITALS: BP 103/63
[2021-07-28] MEDS: SODIUM CHLORIDE 0.9% 1,000 ML IV SCH (18:00)
[2021-07-28] MEDS: TAMSULOSIN HYDROCHLORIDE 0.4 MG CAP PO SCH (18:31)
[2021-07-28] MEDS: ATORVASTATIN 20 MG TAB PO SCH (21:04)
[2021-07-28 22:00] VITALS: BP 102/58
[2021-07-29 05:00] VITALS: BP 112/75
[2021-07-29 05:32] LABS: Basophils # (auto) 0.2 10 ^3/uL (0-0.2); Eosinophils # (auto) 0.3 10 ^3/uL (0-0.8); Monocytes # (auto) 1.5 10 ^3/uL (0-1.3); Red Cell Distribution Width 18.1 % (11.8-14.3)
[2021-07-29 05:35] LABS: Basophils % (auto) 1.4 % (0.0-2.0); Eosinophils % (auto) 2.2 % (0.0-7.0); Lymphocytes # (auto) 0.7 10 ^3/uL (0.4-5.4); Lymphocytes % (auto) 5.1 % (10.0-50.0); Mean Corpuscular Hemoglobin 26.6 pg (28.0-32.0); Mean Corpuscular Volume 80.5 fL (80.0-100.0); Monocytes % (auto) 10.7 % (0.0-12.0); Neutrophils # (auto) 11.5 10 ^3/uL (1.6-8.6); Neutrophils % (auto) 80.6 % (37.0-80.0); Nucleated Red Blood Cells % 0.2 %; Red Blood Cells 2.61 10^6/uL (4.5-5.90); White Blood Cell 14.3 10^3/uL (4.4-10.8)
[2021-07-29] MEDS: SUCRALFATE 1 GM/10 ML ORAL SUSP PO SCH ×4 (05:38→21:28)
[2021-07-29] MEDS: CLINDAMYCIN HCL 150 MG CAP PO SCH ×3 (05:38→21:28)
[2021-07-29 05:48] LABS: % Iron Saturation 11.1 % (20-55)
[2021-07-29 05:58] LABS: Potassium 4.4 mmol/L (3.5-5.1)
[2021-07-29 06:08] LABS: BUN/Creatinine Ratio 10.5; Calcium 7.5 mg/dL (8.5-10.1)
[2021-07-29 06:09] LABS: Hemoglobin 6.9 g/dL (13.5-17.5)
[2021-07-29 06:42] VITALS: BP 112/75
[2021-07-29] MEDS ORDERED: SODIUM CHL 0.9% 1000 ML BAG XX ONE (07:00)
[2021-07-29] MEDS: Nepro With Carbsteady ButterPecan 8oz Carton PO SCH ×2 (08:00→18:00)
[2021-07-29] MEDS: SEVELAMER 800 MG TAB PO SCH ×3 (08:00→18:31)
[2021-07-29] MEDS ORDERED: BENZOCAINE (DENTAL) 20 % SPRAY 60ML MT ONE (08:56)
[2021-07-29 09:00] VITALS: BP 121/80
[2021-07-29] MEDS ORDERED: MIDAZOLAM HCL 2MG/2ML 2ml VIAL (1mg/ml) ONE (09:11)
[2021-07-29] MEDS ORDERED: fentaNYL CITRATE 100 MCG/2 ML VL ONE (09:11)
[2021-07-29] MEDS ORDERED: PROPOFOL 10 MG/ML 20 ML IV ONE (09:12)
[2021-07-29] MEDS ORDERED: SODIUM CHLORIDE LOCK 10 ML ONE (09:12)
[2021-07-29] MEDS ORDERED: KETAMINE HCL 10 ML ONE (09:12)
[2021-07-29] MEDS ORDERED: ONDANSETRON HCL 4 MG/2 ML VIAL ONE (09:12)
[2021-07-29] MEDS: CINACALCET HYDROCHLORIDE 30 MG TAB PO SCH ×2 (10:00→21:29)
[2021-07-29] MEDS: levoFLOXacin 250 MG TAB PO SCH (10:41)
[2021-07-29] MEDS: AMIODARONE HCL 200 MG TAB PO SCH ×2 (10:41→21:29)
[2021-07-29] MEDS: B-COMPLEX W/ C & FOLIC ACID(NEPHROVITE TAB) PO SCH (10:42)
[2021-07-29] MEDS: PANTOPRAZOLE 40 MG TAB PO SCH ×2 (10:42→21:29)
[2021-07-29 13:00] VITALS: BP 111/78
[2021-07-29 17:00] VITALS: BP 106/89
[2021-07-29] MEDS: SODIUM CHLORIDE 0.9% 1,000 ML IV SCH (18:00)
[2021-07-29] MEDS: TAMSULOSIN HYDROCHLORIDE 0.4 MG CAP PO SCH (18:31)
[2021-07-29] MEDS: HYDROcodone-ACET 5/325MG TAB PO PRN (18:33)
[2021-07-29] MEDS: MORPHINE SULFATE INJECTION 2 MG/ML SYRG IV PRN (20:12)
[2021-07-29] MEDS ORDERED: EPOETIN ALFA-EPBX 4,000 UNIT/ML VIAL SC ONE (21:00)
[2021-07-29] MEDS: ATORVASTATIN 20 MG TAB PO SCH (21:29)
[2021-07-29 22:00] VITALS: BP 144/114
[2021-07-30] MEDS: CLINDAMYCIN HCL 150 MG CAP PO SCH ×3 (06:00→22:13)
[2021-07-30 06:32] LABS: Basophils # (auto) 0.1 10 ^3/uL (0-0.2); Basophils % (auto) 0.7 % (0.0-2.0); Hemoglobin 8.1 g/dL (13.5-17.5); Monocytes # (auto) 1.5 10 ^3/uL (0-1.3); Neutrophils # (auto) 11.9 10 ^3/uL (1.6-8.6); Red Cell Distribution Width 18.6 % (11.8-14.3)
[2021-07-30 06:36] LABS: Eosinophils # (auto) 0.1 10 ^3/uL (0-0.8); Hematocrit 25.3 % (41.0-53.0); Lymphocytes # (auto) 0.7 10 ^3/uL (0.4-5.4); Lymphocytes % (auto) 4.9 % (10.0-50.0); Mean Corpuscular Hemoglobin 25.9 pg (28.0-32.0); Mean Corpuscular Hgb Conc. 32.2 g/dL (32.0-36.0); Mean Corpuscular Volume 80.5 fL (80.0-100.0); Monocytes % (auto) 10.2 % (0.0-12.0); Neutrophils % (auto) 83.2 % (37.0-80.0); Nucleated Red Blood Cells % 0.1 %; Red Blood Cells 3.14 10^6/uL (4.5-5.90); White Blood Cell 14.3 10^3/uL (4.4-10.8)
[2021-07-30 06:57] LABS: Potassium 4.2 mmol/L (3.5-5.1)
[2021-07-30] MEDS: SUCRALFATE 1 GM/10 ML ORAL SUSP PO SCH ×4 (07:00→22:13)
[2021-07-30 07:11] LABS: BUN/Creatinine Ratio 8.9; Calcium 7.6 mg/dL (8.5-10.1)
[2021-07-30] MEDS: Nepro With Carbsteady ButterPecan 8oz Carton PO SCH ×2 (08:00→18:12)
[2021-07-30] MEDS: SEVELAMER 800 MG TAB PO SCH ×3 (08:00→18:11)
[2021-07-30 09:00] VITALS: BP 117/74
[2021-07-30] MEDS: AMIODARONE HCL 200 MG TAB PO SCH ×2 (10:00→22:00)
[2021-07-30] MEDS: PANTOPRAZOLE 40 MG TAB PO SCH ×2 (10:00→22:14)
[2021-07-30] MEDS: CINACALCET HYDROCHLORIDE 30 MG TAB PO SCH ×2 (10:00→22:14)
[2021-07-30] MEDS: B-COMPLEX W/ C & FOLIC ACID(NEPHROVITE TAB) PO SCH (10:00)
[2021-07-30] MEDS ORDERED: fentaNYL CITRATE 100 MCG/2 ML VL ONE (11:50)
[2021-07-30] MEDS ORDERED: MIDAZOLAM HCL 2MG/2ML 2ml VIAL (1mg/ml) ONE (11:51)
[2021-07-30] MEDS ORDERED: ONDANSETRON HCL 4 MG/2 ML VIAL IV PRN (12:15)
[2021-07-30 17:03] VITALS: BP 108/83
[2021-07-30] MEDS: SODIUM CHLORIDE 0.9% 1,000 ML IV SCH (17:11)
[2021-07-30] MEDS: TAMSULOSIN HYDROCHLORIDE 0.4 MG CAP PO SCH (18:11)
[2021-07-30] MEDS: HYDROcodone-ACET 5/325MG TAB PO PRN (18:53)
[2021-07-30 22:00] VITALS: BP 100/59
[2021-07-30] MEDS: ATORVASTATIN 20 MG TAB PO SCH (22:13)
[2021-07-31] MEDS: MORPHINE SULFATE INJECTION 2 MG/ML SYRG IV PRN ×2 (01:42→20:07)
[2021-07-31 05:15] LABS: Basophils # (auto) 0.1 10 ^3/uL (0-0.2); Hemoglobin 7.8 g/dL (13.5-17.5); Nucleated Red Blood Cells % 0.1 %; White Blood Cell 15.7 10^3/uL (4.4-10.8)
[2021-07-31 05:20] LABS: Basophils % (auto) 0.7 % (0.0-2.0); Eosinophils # (auto) 0.1 10 ^3/uL (0-0.8); Eosinophils % (auto) 0.9 % (0.0-7.0); Hematocrit 23.1 % (41.0-53.0); Lymphocytes # (auto) 0.9 10 ^3/uL (0.4-5.4); Lymphocytes % (auto) 5.7 % (10.0-50.0); Mean Corpuscular Hemoglobin 27.1 pg (28.0-32.0); Mean Corpuscular Hgb Conc. 33.6 g/dL (32.0-36.0); Mean Corpuscular Volume 80.5 fL (80.0-100.0); Monocytes # (auto) 1.8 10 ^3/uL (0-1.3); Monocytes % (auto) 11.5 % (0.0-12.0); Neutrophils # (auto) 12.7 10 ^3/uL (1.6-8.6); Neutrophils % (auto) 81.2 % (37.0-80.0); Red Blood Cells 2.88 10^6/uL (4.5-5.90); Red Cell Distribution Width 18.9 % (11.8-14.3)
[2021-07-31 05:30] VITALS: BP 120/84
[2021-07-31] MEDS: SUCRALFATE 1 GM/10 ML ORAL SUSP PO SCH ×4 (05:31→21:55)
[2021-07-31] MEDS: CLINDAMYCIN HCL 150 MG CAP PO SCH ×3 (05:31→21:58)
[2021-07-31 05:41] LABS: BUN/Creatinine Ratio 8.5; Calcium 7.9 mg/dL (8.5-10.1); Potassium 4.4 mmol/L (3.5-5.1)
[2021-07-31] MEDS ORDERED: SODIUM CHL 0.9% 1000 ML BAG XX ONE (07:00)
[2021-07-31] MEDS: Nepro With Carbsteady ButterPecan 8oz Carton PO SCH ×2 (07:24→17:30)
[2021-07-31] MEDS: SEVELAMER 800 MG TAB PO SCH ×3 (07:25→17:30)
[2021-07-31 09:07] VITALS: BP 102/72
[2021-07-31] MEDS: AMIODARONE HCL 200 MG TAB PO SCH ×2 (09:22→21:59)
[2021-07-31] MEDS: B-COMPLEX W/ C & FOLIC ACID(NEPHROVITE TAB) PO SCH (09:23)
[2021-07-31] MEDS: PANTOPRAZOLE 40 MG TAB PO SCH ×2 (09:23→21:58)
[2021-07-31] MEDS: CINACALCET HYDROCHLORIDE 30 MG TAB PO SCH ×2 (09:23→22:00)
[2021-07-31] MEDS: levoFLOXacin 250 MG TAB PO SCH (10:00)
[2021-07-31 13:00] VITALS: BP 120/74
[2021-07-31] MEDS ORDERED: MIDAZOLAM HCL 2MG/2ML 2ml VIAL (1mg/ml) ONE (13:19)
[2021-07-31] MEDS ORDERED: fentaNYL CITRATE 100 MCG/2 ML VL ONE (13:19)
[2021-07-31] MEDS ORDERED: SODIUM CHLORIDE LOCK 10 ML ONE (13:19)
[2021-07-31] MEDS ORDERED: ONDANSETRON HCL 4 MG/2 ML VIAL ONE (13:19)
[2021-07-31] MEDS ORDERED: PROPOFOL 10 MG/ML 20 ML IV ONE (13:19)
[2021-07-31] MEDS ORDERED: LIDOCAINE 1% HCL (LOCAL ANESTH.) INJ 20ML MDV ONE ×2 (13:54→14:02)
[2021-07-31] MEDS ORDERED: BUPIVACAINE 0.5% MPF INJ 30ML SDV IJ ONE (13:54)
[2021-07-31] MEDS ORDERED: BUPIVACAINE HCL 50 ML ONE (14:02)
[2021-07-31] MEDS ORDERED: ceFAZolin 1GM/50ML 100 ML IV ONE (14:08)
[2021-07-31] MEDS ORDERED: HYDROmorphone HCL 2 MG/ML VL ONE (15:48)
[2021-07-31] MEDS ORDERED: MIDAZOLAM HCL 2MG/2ML 2ml VIAL (1mg/ml) IV PRN (16:00)
[2021-07-31] MEDS ORDERED: LABETALOL HCL 5 MG/ML 4ML SYRINGE IV PRN (16:00)
[2021-07-31] MEDS ORDERED: ePHEDrine SULFATE 50 MG/ML AMP IV PRN (16:00)
[2021-07-31] MEDS ORDERED: fentaNYL CITRATE 100 MCG/2 ML VL IV PRN (16:00)
[2021-07-31] MEDS ORDERED: HYDROmorphone HCL 2 MG/ML VL IV PRN (16:00)
[2021-07-31] MEDS ORDERED: ONDANSETRON HCL 4 MG/2 ML VIAL IV PRN (16:00)
[2021-07-31] MEDS: SODIUM CHLORIDE 0.9% 1,000 ML IV SCH (17:27)
[2021-07-31] MEDS: TAMSULOSIN HYDROCHLORIDE 0.4 MG CAP PO SCH (17:30)
[2021-07-31] MEDS ORDERED: EPOETIN ALFA-EPBX 10,000 UNIT/1ML VIAL SC ONE (21:00)
[2021-07-31] MEDS: ATORVASTATIN 20 MG TAB PO SCH (21:57)
[2021-07-31 22:00] VITALS: BP 142/78
[2021-08-01 05:00] VITALS: BP 126/37
[2021-08-01 05:38] LABS: Basophils # (auto) 0 10 ^3/uL (0-0.2); Eosinophils # (auto) 0 10 ^3/uL (0-0.8); Hematocrit 26.1 % (41.0-53.0); Hemoglobin 8.5 g/dL (13.5-17.5); Lymphocytes # (auto) 0.3 10 ^3/uL (0.4-5.4); Lymphocytes % (auto) 2.2 % (10.0-50.0)
[2021-08-01 05:42] LABS: BUN/Creatinine Ratio 9.3; Basophils % (auto) 0.2 % (0.0-2.0); Calcium 8.5 mg/dL (8.5-10.1); Mean Corpuscular Hemoglobin 26.6 pg (28.0-32.0); Mean Corpuscular Hgb Conc. 32.6 g/dL (32.0-36.0); Mean Corpuscular Volume 81.6 fL (80.0-100.0); Monocytes # (auto) 0.7 10 ^3/uL (0-1.3); Monocytes % (auto) 4.6 % (0.0-12.0); Neutrophils # (auto) 13.5 10 ^3/uL (1.6-8.6); Potassium 5.2 mmol/L (3.5-5.1); Red Cell Distribution Width 19.2 % (11.8-14.3); White Blood Cell 14.5 10^3/uL (4.4-10.8)
[2021-08-01] MEDS: CLINDAMYCIN HCL 150 MG CAP PO SCH ×3 (06:12→21:35)
[2021-08-01] MEDS: SUCRALFATE 1 GM/10 ML ORAL SUSP PO SCH ×4 (06:12→21:36)
[2021-08-01] MEDS: MORPHINE SULFATE INJECTION 2 MG/ML SYRG IV PRN (06:59)
[2021-08-01] MEDS: SEVELAMER 800 MG TAB PO SCH ×3 (08:00→17:04)
[2021-08-01 09:00] VITALS: BP 121/71
[2021-08-01] MEDS: B-COMPLEX W/ C & FOLIC ACID(NEPHROVITE TAB) PO SCH (09:00)
[2021-08-01] MEDS: Nepro With Carbsteady ButterPecan 8oz Carton PO SCH ×2 (09:00→17:53)
[2021-08-01] MEDS: CINACALCET HYDROCHLORIDE 30 MG TAB PO SCH ×2 (09:01→21:40)
[2021-08-01] MEDS: PANTOPRAZOLE 40 MG TAB PO SCH ×2 (09:01→21:35)
[2021-08-01] MEDS: HYDROcodone-ACET 5/325MG TAB PO PRN ×2 (09:51→21:36)
[2021-08-01] MEDS: AMIODARONE HCL 200 MG TAB PO SCH ×2 (09:52→21:35)
[2021-08-01 13:00] VITALS: BP 95/86
[2021-08-01] MEDS ORDERED: diphenhdrAMINE HCL 50 MG/1 ML VL IV PRN (15:30)
[2021-08-01 17:00] VITALS: BP 107/49
[2021-08-01] MEDS: SODIUM CHLORIDE 0.9% 1,000 ML IV SCH (17:07)
[2021-08-01] MEDS: TAMSULOSIN HYDROCHLORIDE 0.4 MG CAP PO SCH (17:07)
[2021-08-01] MEDS: ATORVASTATIN 20 MG TAB PO SCH (21:35)
[2021-08-01 22:00] VITALS: BP 97/53
[2021-08-02] VITALS (7 sets, daily range): BP systolic 100–114; BP diastolic 64–72
[2021-08-02] MEDS: MORPHINE SULFATE INJECTION 2 MG/ML SYRG IV PRN ×2 (01:11→16:26)
[2021-08-02 05:16] LABS: Basophils # (auto) 0.1 10 ^3/uL (0-0.2); Basophils % (auto) 0.7 % (0.0-2.0); Eosinophils # (auto) 0.1 10 ^3/uL (0-0.8); Monocytes # (auto) 1.7 10 ^3/uL (0-1.3)
[2021-08-02 05:19] LABS: Eosinophils % (auto) 0.8 % (0.0-7.0); Hematocrit 24.2 % (41.0-53.0); Hemoglobin 7.8 g/dL (13.5-17.5); Lymphocytes # (auto) 0.8 10 ^3/uL (0.4-5.4); Lymphocytes % (auto) 6.8 % (10.0-50.0); Mean Corpuscular Hgb Conc. 32.4 g/dL (32.0-36.0); Mean Corpuscular Volume 80.5 fL (80.0-100.0); Neutrophils # (auto) 9.6 10 ^3/uL (1.6-8.6); Neutrophils % (auto) 77.7 % (37.0-80.0); Red Cell Distribution Width 19.6 % (11.8-14.3); White Blood Cell 12.4 10^3/uL (4.4-10.8)
[2021-08-02 05:31] LABS: Potassium 4.2 mmol/L (3.5-5.1)
[2021-08-02 05:39] LABS: Albumin 1.6 g/dL (3.4-5.0); BUN/Creatinine Ratio 8.8; Bilirubin, Total 0.2 mg/dL (0.2-1.0); Calcium 8.3 mg/dL (8.5-10.1); Total Protein 5.4 g/dL (6.4-8.2)
[2021-08-02] MEDS: SUCRALFATE 1 GM/10 ML ORAL SUSP PO SCH ×5 (06:32→22:02)
[2021-08-02] MEDS: CLINDAMYCIN HCL 150 MG CAP PO SCH ×3 (06:34→21:53)
[2021-08-02] MEDS: SEVELAMER 800 MG TAB PO SCH ×3 (08:33→17:05)
[2021-08-02] MEDS: Nepro With Carbsteady ButterPecan 8oz Carton PO SCH ×2 (09:13→18:25)
[2021-08-02] MEDS: PANTOPRAZOLE 40 MG TAB PO SCH ×2 (09:22→21:52)
[2021-08-02] MEDS: AMIODARONE HCL 200 MG TAB PO SCH ×2 (09:22→21:52)
[2021-08-02] MEDS: B-COMPLEX W/ C & FOLIC ACID(NEPHROVITE TAB) PO SCH (09:22)
[2021-08-02] MEDS: levoFLOXacin 250 MG TAB PO SCH (09:22)
[2021-08-02] MEDS: CINACALCET HYDROCHLORIDE 30 MG TAB PO SCH ×2 (09:23→22:02)
[2021-08-02] MEDS: HYDROcodone-ACET 5/325MG TAB PO PRN (09:24)
[2021-08-02] MEDS: diphenhdrAMINE HCL 50 MG/1 ML VL IV PRN ×2 (14:18→22:01)
[2021-08-02] MEDS: SODIUM CHLORIDE 0.9% 1,000 ML IV SCH (17:05)
[2021-08-02] MEDS: TAMSULOSIN HYDROCHLORIDE 0.4 MG CAP PO SCH (17:05)
[2021-08-02] MEDS: ATORVASTATIN 20 MG TAB PO SCH (21:53)
[2021-08-03] MEDS: MORPHINE SULFATE INJECTION 2 MG/ML SYRG IV PRN ×4 (05:14→19:53)
[2021-08-03] MEDS: CLINDAMYCIN HCL 150 MG CAP PO SCH ×3 (06:28→21:52)
[2021-08-03] MEDS: SUCRALFATE 1 GM/10 ML ORAL SUSP PO SCH ×4 (06:31→21:51)
[2021-08-03] MEDS: Nepro With Carbsteady ButterPecan 8oz Carton PO SCH ×2 (08:00→18:00)
[2021-08-03] MEDS: SEVELAMER 800 MG TAB PO SCH ×3 (08:00→18:00)
[2021-08-03 09:00] VITALS: BP 104/65
[2021-08-03 09:53] LABS: Basophils # (auto) 0.1 10 ^3/uL (0-0.2); Basophils % (auto) 0.8 % (0.0-2.0); Eosinophils # (auto) 0.1 10 ^3/uL (0-0.8); Neutrophils # (auto) 12.5 10 ^3/uL (1.6-8.6)
[2021-08-03 09:55] LABS: Eosinophils % (auto) 0.7 % (0.0-7.0); Hematocrit 25.7 % (41.0-53.0); Hemoglobin 8.4 g/dL (13.5-17.5); Lymphocytes # (auto) 0.7 10 ^3/uL (0.4-5.4); Lymphocytes % (auto) 4.5 % (10.0-50.0); Mean Corpuscular Hemoglobin 26.2 pg (28.0-32.0); Mean Corpuscular Hgb Conc. 32.6 g/dL (32.0-36.0); Mean Corpuscular Volume 80.4 fL (80.0-100.0); Monocytes # (auto) 1.5 10 ^3/uL (0-1.3); Monocytes % (auto) 10.3 % (0.0-12.0); Neutrophils % (auto) 83.7 % (37.0-80.0); White Blood Cell 14.9 10^3/uL (4.4-10.8)
[2021-08-03 10:08] LABS: BUN/Creatinine Ratio 8.2; Calcium 8.5 mg/dL (8.5-10.1); Potassium 4.2 mmol/L (3.5-5.1)
[2021-08-03] MEDS: PANTOPRAZOLE 40 MG TAB PO SCH ×2 (10:37→21:52)
[2021-08-03] MEDS: AMIODARONE HCL 200 MG TAB PO SCH ×2 (10:37→21:52)
[2021-08-03] MEDS: B-COMPLEX W/ C & FOLIC ACID(NEPHROVITE TAB) PO SCH (10:38)
[2021-08-03] MEDS: CINACALCET HYDROCHLORIDE 30 MG TAB PO SCH ×2 (11:19→21:52)
[2021-08-03 12:50] VITALS: BP 129/95
[2021-08-03 17:00] VITALS: BP 113/35
[2021-08-03] MEDS: SODIUM CHLORIDE 0.9% 1,000 ML IV SCH (18:00)
[2021-08-03] MEDS: TAMSULOSIN HYDROCHLORIDE 0.4 MG CAP PO SCH (18:00)
[2021-08-03] MEDS: ATORVASTATIN 20 MG TAB PO SCH (21:52)
[2021-08-03 22:00] VITALS: BP 132/74
[2021-08-04 05:00] VITALS: BP 117/86
[2021-08-04] MEDS: CLINDAMYCIN HCL 150 MG CAP PO SCH ×3 (06:45→21:56)
[2021-08-04] MEDS: SUCRALFATE 1 GM/10 ML ORAL SUSP PO SCH ×4 (06:52→21:58)
[2021-08-04] MEDS ORDERED: SODIUM CHL 0.9% 1000 ML BAG XX ONE (07:00)
[2021-08-04] MEDS: Nepro With Carbsteady ButterPecan 8oz Carton PO SCH ×2 (08:00→18:41)
[2021-08-04 09:00] VITALS: BP 111/64
[2021-08-04] MEDS: B-COMPLEX W/ C & FOLIC ACID(NEPHROVITE TAB) PO SCH (09:07)
[2021-08-04] MEDS: SEVELAMER 800 MG TAB PO SCH ×4 (09:07→18:45)
[2021-08-04] MEDS: CINACALCET HYDROCHLORIDE 30 MG TAB PO SCH ×2 (09:08→21:59)
[2021-08-04] MEDS: AMIODARONE HCL 200 MG TAB PO SCH ×2 (09:08→21:58)
[2021-08-04] MEDS: FLORASTOR (S. BOULARDII) 250 MG CAP PO SCH (09:08)
[2021-08-04] MEDS: levoFLOXacin 250 MG TAB PO SCH (09:08)
[2021-08-04] MEDS: PANTOPRAZOLE 40 MG TAB PO SCH ×2 (09:08→21:59)
[2021-08-04 13:00] VITALS: BP 120/73
[2021-08-04] MEDS: MORPHINE SULFATE INJECTION 2 MG/ML SYRG IV PRN (14:14)
[2021-08-04 17:00] VITALS: BP 116/89
[2021-08-04] MEDS: SODIUM CHLORIDE 0.9% 1,000 ML IV SCH (18:00)
[2021-08-04] MEDS: TAMSULOSIN HYDROCHLORIDE 0.4 MG CAP PO SCH ×2 (18:41→18:45)
[2021-08-04] MEDS: EPOETIN ALFA-EPBX 10,000 UNIT/1ML VIAL SC ONE ×2 (21:00→21:57)
[2021-08-04] MEDS: ATORVASTATIN 20 MG TAB PO SCH (21:58)
[2021-08-04 22:00] VITALS: BP 110/74
[2021-08-05 05:00] VITALS: BP 150/66
[2021-08-05] MEDS: CLINDAMYCIN HCL 150 MG CAP PO SCH ×2 (06:28→14:38)
[2021-08-05] MEDS: SUCRALFATE 1 GM/10 ML ORAL SUSP PO SCH ×4 (06:29→17:00)
[2021-08-05] MEDS: Nepro With Carbsteady ButterPecan 8oz Carton PO SCH ×3 (08:00→18:18)
[2021-08-05 09:00] VITALS: BP 113/95
[2021-08-05] MEDS: B-COMPLEX W/ C & FOLIC ACID(NEPHROVITE TAB) PO SCH (09:54)
[2021-08-05] MEDS: SEVELAMER 800 MG TAB PO SCH ×3 (09:54→18:00)
[2021-08-05] MEDS: PANTOPRAZOLE 40 MG TAB PO SCH (09:55)
[2021-08-05] MEDS: FLORASTOR (S. BOULARDII) 250 MG CAP PO SCH (09:55)
[2021-08-05] MEDS: AMIODARONE HCL 200 MG TAB PO SCH (09:55)
[2021-08-05] MEDS: CINACALCET HYDROCHLORIDE 30 MG TAB PO SCH (11:03)
[2021-08-05] MEDS: MORPHINE SULFATE INJECTION 2 MG/ML SYRG IV PRN ×2 (11:04→17:26)
[2021-08-05 13:00] VITALS: BP 157/66
[2021-08-05] MEDS: HYDROcodone-ACET 5/325MG TAB PO PRN (14:44)
[2021-08-05 17:00] VITALS: BP 113/83
[2021-08-05] MEDS: SODIUM CHLORIDE 0.9% 1,000 ML IV SCH (17:10)
[2021-08-05] MEDS: TAMSULOSIN HYDROCHLORIDE 0.4 MG CAP PO SCH (18:18)
== END 2021-08-05 18:45 | DRG 853 ==
LOC: EDBD 10:36 → ER 10:36 → TELE 15:39 → TELE-CENTR 23:51
PROVIDERS: ADMIT Hospitalist; ATTEND Internal Medicine
PROC: 30233N1 Transfusion of Nonautologous Red Blood Cells into Peripheral Vein, Percutaneous Approach (ICD-10-PCS; 2021-07-15)
PROC: 30233N1 Transfusion of Nonautologous Red Blood Cells into Peripheral Vein, Percutaneous Approach (ICD-10-PCS; 2021-07-15)
PROC: 3E1M39Z Irrigation of Peritoneal Cavity using Dialysate, Percutaneous Approach (ICD-10-PCS; 2021-07-17)
PROC: 05HA33Z Insertion of Infusion Device into Left Brachial Vein, Percutaneous Approach (ICD-10-PCS; 2021-07-17)
PROC: B54NZZA Ultrasonography of Left Upper Extremity Veins, Guidance (ICD-10-PCS; 2021-07-17)
PROC: 3E1M39Z Irrigation of Peritoneal Cavity using Dialysate, Percutaneous Approach (ICD-10-PCS; 2021-07-18)
PROC: B41G1ZZ Fluoroscopy of Left Lower Extremity Arteries using Low Osmolar Contrast (ICD-10-PCS; 2021-07-20)
PROC: B41F1ZZ Fluoroscopy of Right Lower Extremity Arteries using Low Osmolar Contrast (ICD-10-PCS; 2021-07-20)
PROC: 3E1M39Z Irrigation of Peritoneal Cavity using Dialysate, Percutaneous Approach (ICD-10-PCS; 2021-07-24)
PROC: 3E1M39Z Irrigation of Peritoneal Cavity using Dialysate, Percutaneous Approach (ICD-10-PCS; 2021-07-25)
PROC: 3E1M39Z Irrigation of Peritoneal Cavity using Dialysate, Percutaneous Approach (ICD-10-PCS; 2021-07-27)
PROC: 3E1M39Z Irrigation of Peritoneal Cavity using Dialysate, Percutaneous Approach (ICD-10-PCS; 2021-07-29)
PROC: 05HA33Z Insertion of Infusion Device into Left Brachial Vein, Percutaneous Approach (ICD-10-PCS; 2021-07-29)
PROC: B54NZZA Ultrasonography of Left Upper Extremity Veins, Guidance (ICD-10-PCS; 2021-07-29)
PROC: 0DB68ZX Excision of Stomach, Via Natural or Artificial Opening Endoscopic, Diagnostic (ICD-10-PCS; 2021-07-30)
PROC: 0Y6X0Z0 Detachment at Right 5th Toe, Complete, Open Approach (ICD-10-PCS; 2021-07-31)
PROC: 0Y6V0Z0 Detachment at Right 4th Toe, Complete, Open Approach (ICD-10-PCS; 2021-07-31)
PROC: 0Y6W0Z0 Detachment at Left 4th Toe, Complete, Open Approach (ICD-10-PCS; 2021-07-31)
PROC: 0Y6U0Z0 Detachment at Left 3rd Toe, Complete, Open Approach (ICD-10-PCS; 2021-07-31)
PROC: 0Y6R0Z0 Detachment at Right 2nd Toe, Complete, Open Approach (ICD-10-PCS; 2021-07-31)
PROC: 0Y6T0Z0 Detachment at Right 3rd Toe, Complete, Open Approach (ICD-10-PCS; 2021-07-31)
PROC: 0Y6Y0Z0 Detachment at Left 5th Toe, Complete, Open Approach (ICD-10-PCS; 2021-07-31)
PROC: 0Y6S0Z0 Detachment at Left 2nd Toe, Complete, Open Approach (ICD-10-PCS; principal; 2021-07-31 14:13)
PROC: 3E1M39Z Irrigation of Peritoneal Cavity using Dialysate, Percutaneous Approach (ICD-10-PCS; 2021-08-01)
PROC: 3E1M39Z Irrigation of Peritoneal Cavity using Dialysate, Percutaneous Approach (ICD-10-PCS; 2021-08-04)
DX: A41.9 Sepsis, unspecified organism (principal); J81.0 Acute pulmonary edema; E43 Unspecified severe protein-calorie malnutrition; N18.6 End stage renal disease; I50.33 Acute on chronic diastolic (congestive) heart failure; I21.A1 Myocardial infarction type 2; K29.71 Gastritis, unspecified, with bleeding; K29.81 Duodenitis with bleeding; E11.52 Type 2 diabetes mellitus with diabetic peripheral angiopathy with gangrene; N25.81 Secondary hyperparathyroidism of renal origin; I16.9 Hypertensive crisis, unspecified; M86.9 Osteomyelitis, unspecified; D62 Acute posthemorrhagic anemia; E87.1 Hypo-osmolality and hyponatremia; I13.2 Hypertensive heart and chronic kidney disease with heart failure and with stage 5 chronic kidney disease, or end stage renal disease; E88.09 Other disorders of plasma-protein metabolism, not elsewhere classified; D47.3 Essential (hemorrhagic) thrombocythemia; R00.8 Other abnormalities of heart beat; I48.0 Paroxysmal atrial fibrillation; I25.10 Atherosclerotic heart disease of native coronary artery without angina pectoris; I35.8 Other nonrheumatic aortic valve disorders; Z20.822 Contact with and (suspected) exposure to COVID-19; E11.22 Type 2 diabetes mellitus with diabetic chronic kidney disease; E78.5 Hyperlipidemia, unspecified; E87.5 Hyperkalemia; K59.00 Constipation, unspecified; N40.0 Benign prostatic hyperplasia without lower urinary tract symptoms; Z53.20 Procedure and treatment not carried out because of patient's decision for unspecified reasons; Z79.01 Long term (current) use of anticoagulants; Z99.2 Dependence on renal dialysis; Z91.040 Latex allergy status; Z91.010 Allergy to peanuts; Z68.27 Body mass index [BMI] 27.0-27.9, adult; Z79.82 Long term (current) use of aspirin; Z79.899 Other long term (current) drug therapy; Z82.49 Family history of ischemic heart disease and other diseases of the circulatory system; Z86.16 Personal history of COVID-19; Z86.718 Personal history of other venous thrombosis and embolism; Z87.01 Personal history of pneumonia (recurrent); Z89.429 Acquired absence of other toe(s), unspecified side; Z91.19 Patient's noncompliance with other medical treatment and regimen
CPT/HCPCS: 36415; 71045; 75716; 80048; 80053; 80074; 80076; 80202; 82270; 82728; 83036; 83540; 83550; 83605; 83735; 83880; 83970; 84100; 84132; 84443; 84484; 85014; 85018; 85025; 85610; 85730; 86850; 86900; 86901; 86920; 87040; 87081; 87426; 87493; 90935; 93005; 93306; 96365; 96375; 97110; 97530; 99152; C9113; G0378; J0690; J0696; J1642; J1815; J2001; J2250; J2405; J2543; J2704; J3489; J3490; J7060; P9047; Q9967

== ENCOUNTER 2021-09-16 13:10 | Inpatient (IN) | payer MEDICARE, MEDICAID ==
[~2021-09-16] VITALS: Ht 180.3 cm; Wt 92.0 kg
[~2021-09-16 13:10] MED LIST changes: +AML5T PO; -ASPI-378 PO; +METO25TA93 PO
[2021-09-16] MEDS ORDERED: SODIUM CHLORIDE 0.9% 1,000 ML IV ONE (15:00)
[2021-09-16] MEDS ORDERED: cefTRIAXone 1GM/50ML D5W 50 ML IV ONE (15:00)
[2021-09-16 15:28] LABS: Albumin 1.7 g/dL (3.4-5.0); BUN/Creatinine Ratio 7.1; Calcium 8.8 mg/dL (8.5-10.1); Potassium 5.1 mmol/L (3.5-5.1)
[2021-09-16 15:29] LABS: Basophils # (auto) 0.2 10 ^3/uL (0-0.2); Basophils % (auto) 0.7 % (0.0-2.0); Eosinophils # (auto) 0 10 ^3/uL (0-0.8); Eosinophils % (auto) 0.2 % (0.0-7.0); Hematocrit 24.1 % (41.0-53.0); Hemoglobin 7.5 g/dL (13.5-17.5); Lymphocytes # (auto) 0.8 10 ^3/uL (0.4-5.4); Lymphocytes % (auto) 3.4 % (10.0-50.0); Mean Corpuscular Hemoglobin 22.4 pg (28.0-32.0); Mean Corpuscular Volume 72.3 fL (80.0-100.0); Monocytes # (auto) 1.3 10 ^3/uL (0-1.3); Monocytes % (auto) 5.5 % (0.0-12.0); Neutrophils % (auto) 90.2 % (37.0-80.0); Red Blood Cells 3.34 10^6/uL (4.5-5.90); White Blood Cell 24.4 10^3/uL (4.4-10.8)
[2021-09-16 15:31] LABS: Red Cell Distribution Width 20.7 % (11.8-14.3)
[2021-09-16 15:42] LABS: Bilirubin, Total 0.4 mg/dL (0.2-1.0); Total Protein 6.8 g/dL (6.4-8.2)
[2021-09-16] MEDS ORDERED: NITROGLYCERIN 0.4 MG SL TAB SL PRN (15:45)
[2021-09-16] MEDS ORDERED: VANCOMYCIN PER PHARMACY 0 MG IV SCH (15:45)
[2021-09-16] MEDS ORDERED: MORPHINE SULFATE INJECTION 2 MG/ML SYRG IV PRN (15:45)
[2021-09-16] MEDS ORDERED: ONDANSETRON HCL 4 MG/2 ML VIAL IV PRN (15:45)
[2021-09-16] MEDS ORDERED: hydrALAZINE HCL 20 MG/ML VL IV PRN (15:45)
[2021-09-16] MEDS: HYDROmorphone HCL 2 MG/ML VL IV PRN ×2 (16:18→17:28)
[2021-09-16] MEDS ORDERED: VANCOMYCIN 1GM/250ML 250 ML IV ONE (17:00)
[2021-09-16 22:00] VITALS: BP 120/75
[2021-09-17] VITALS (7 sets, daily range): BP systolic 96–114; BP diastolic 61–71
[2021-09-17] MEDS: HYDROmorphone HCL 2 MG/ML VL IV PRN ×3 (00:59→21:51)
[2021-09-17] MEDS: cefTRIAXone 1GM/50ML D5W 50 ML IV SCH (09:26)
[2021-09-17] MEDS: METOPROLOL SUCCINATE XL 50 MG TAB PO SCH (09:47)
[2021-09-17 09:52] LABS: Basophils # (auto) 0.1 10 ^3/uL (0-0.2); Eosinophils # (auto) 0.1 10 ^3/uL (0-0.8); Hemoglobin 7.5 g/dL (13.5-17.5); Lymphocytes # (auto) 1.1 10 ^3/uL (0.4-5.4); Lymphocytes % (auto) 6.1 % (10.0-50.0)
[2021-09-17] MEDS: SEVELAMER 800 MG TAB PO SCH (09:54)
[2021-09-17 09:55] LABS: Basophils % (auto) 0.5 % (0.0-2.0); Eosinophils % (auto) 0.6 % (0.0-7.0); Mean Corpuscular Hemoglobin 22.9 pg (28.0-32.0); Mean Corpuscular Hgb Conc. 31.3 g/dL (32.0-36.0); Mean Corpuscular Volume 73.3 fL (80.0-100.0); Monocytes # (auto) 1.2 10 ^3/uL (0-1.3); Monocytes % (auto) 6.6 % (0.0-12.0); Neutrophils % (auto) 86.2 % (37.0-80.0); Nucleated Red Blood Cells % 0.1 %; Red Blood Cells 3.28 10^6/uL (4.5-5.90); White Blood Cell 18.6 10^3/uL (4.4-10.8)
[2021-09-17 09:59] LABS: Red Cell Distribution Width 20.4 % (11.8-14.3)
[2021-09-17 10:09] LABS: Albumin 1.4 g/dL (3.4-5.0); Calcium 8.6 mg/dL (8.5-10.1); Potassium 5.3 mmol/L (3.5-5.1)
[2021-09-17 10:14] LABS: BUN/Creatinine Ratio 7.4; Bilirubin, Total 0.4 mg/dL (0.2-1.0); Total Protein 6.2 g/dL (6.4-8.2)
[2021-09-17] MEDS ORDERED: VANCOMYCIN 1GM/250ML 250 ML IV ONE (14:00)
[2021-09-17] MEDS ORDERED: SODIUM CHL 0.9% 1000 ML BAG XX ONE (15:15)
[2021-09-17] MEDS ORDERED: EPOETIN ALFA-EPBX 10,000 UNIT/1ML VIAL SC ONE (21:00)
[2021-09-18] MEDS: OXYCODONE W/ ACETAMINOPHEN 5/325MG TABLET PO PRN ×2 (00:39→23:01)
[2021-09-18] MEDS: diphenhdrAMINE HCL 25 MG CAP PO PRN ×2 (02:20→09:44)
[2021-09-18 04:59] VITALS: BP 109/62
[2021-09-18 06:00] LABS: Eosinophils # (auto) 0.1 10 ^3/uL (0-0.8); Hemoglobin 7.4 g/dL (13.5-17.5)
[2021-09-18 06:04] LABS: Basophils # (auto) 0.1 10 ^3/uL (0-0.2); Basophils % (auto) 0.5 % (0.0-2.0); Eosinophils % (auto) 0.4 % (0.0-7.0); Lymphocytes # (auto) 1.5 10 ^3/uL (0.4-5.4); Lymphocytes % (auto) 9.3 % (10.0-50.0); Mean Corpuscular Hemoglobin 23.3 pg (28.0-32.0); Mean Corpuscular Hgb Conc. 32.1 g/dL (32.0-36.0); Mean Corpuscular Volume 72.6 fL (80.0-100.0); Monocytes # (auto) 1.3 10 ^3/uL (0-1.3); Monocytes % (auto) 7.8 % (0.0-12.0); Neutrophils # (auto) 13.4 10 ^3/uL (1.6-8.6); Red Blood Cells 3.17 10^6/uL (4.5-5.90); White Blood Cell 16.3 10^3/uL (4.4-10.8)
[2021-09-18 06:08] LABS: Red Cell Distribution Width 20.2 % (11.8-14.3)
[2021-09-18 06:21] LABS: BUN/Creatinine Ratio 7.6; Potassium 4.5 mmol/L (3.5-5.1)
[2021-09-18 08:15] VITALS: BP 121/68
[2021-09-18 09:05] VITALS: BP 121/68
[2021-09-18] MEDS: cefTRIAXone 1GM/50ML D5W 50 ML IV SCH (09:43)
[2021-09-18] MEDS: METOPROLOL SUCCINATE XL 50 MG TAB PO SCH (09:43)
[2021-09-18] MEDS: SEVELAMER 800 MG TAB PO SCH (09:43)
[2021-09-18] MEDS: HYDROmorphone HCL 2 MG/ML VL IV PRN ×3 (09:44→20:16)
[2021-09-18 13:26] VITALS: BP 91/52
[2021-09-18 17:00] VITALS: BP 91/58
[2021-09-18 22:00] VITALS: BP 93/64
[2021-09-19 05:00] VITALS: BP 87/56
[2021-09-19] MEDS ORDERED: SODIUM CHL 0.9% 1000 ML BAG XX ONE (07:00)
[2021-09-19 07:13] LABS: Basophils # (auto) 0.2 10 ^3/uL (0-0.2); Eosinophils # (auto) 0.1 10 ^3/uL (0-0.8); Eosinophils % (auto) 0.7 % (0.0-7.0); Hemoglobin 8.3 g/dL (13.5-17.5); Monocytes # (auto) 1.9 10 ^3/uL (0-1.3)
[2021-09-19 07:16] LABS: Basophils % (auto) 0.9 % (0.0-2.0); Hematocrit 26.1 % (41.0-53.0); Lymphocytes # (auto) 1.7 10 ^3/uL (0.4-5.4); Lymphocytes % (auto) 9.3 % (10.0-50.0); Mean Corpuscular Hemoglobin 23.4 pg (28.0-32.0); Mean Corpuscular Hgb Conc. 31.8 g/dL (32.0-36.0); Mean Corpuscular Volume 73.6 fL (80.0-100.0); Monocytes % (auto) 10.4 % (0.0-12.0); Neutrophils # (auto) 14.2 10 ^3/uL (1.6-8.6); Neutrophils % (auto) 78.7 % (37.0-80.0); Nucleated Red Blood Cells % 0.1 %; Red Blood Cells 3.54 10^6/uL (4.5-5.90); Red Cell Distribution Width 20.3 % (11.8-14.3); White Blood Cell 18.1 10^3/uL (4.4-10.8)
[2021-09-19 08:15] VITALS: BP 88/55
[2021-09-19 08:30] VITALS: BP 85/55
[2021-09-19] MEDS: METOPROLOL SUCCINATE XL 50 MG TAB PO SCH (08:31)
[2021-09-19] MEDS: SEVELAMER 800 MG TAB PO SCH (09:59)
[2021-09-19] MEDS: cefTRIAXone 1GM/50ML D5W 50 ML IV SCH (09:59)
[2021-09-19] MEDS: DAKINS HALF STR 0.25% (NaHypochlorite) 473 ML TOPICAL SOL TOP SCH (09:59)
[2021-09-19] MEDS: OXYCODONE W/ ACETAMINOPHEN 5/325MG TABLET PO PRN ×2 (10:05→16:53)
[2021-09-19] MEDS ORDERED: ALBUMIN 25% 100 ML IV ONE ×2 (11:00→12:15)
[2021-09-19] MEDS: HYDROmorphone HCL 2 MG/ML VL IV PRN (14:13)
[2021-09-19 14:30] VITALS: BP 91/37
[2021-09-19] MEDS ORDERED: VANCOMYCIN 1GM/250ML 250 ML IV ONE (15:00)
[2021-09-19] MEDS ORDERED: EPOETIN ALFA-EPBX 10,000 UNIT/1ML VIAL SC ONE (21:00)
[2021-09-19 22:00] VITALS: BP 83/46
[2021-09-19] MEDS: MIDODRINE HCL 10 MG TAB PO SCH (23:11)
[2021-09-20] VITALS (10 sets, daily range): BP systolic 89–119; BP diastolic 50–73
[2021-09-20] MEDS: HYDROmorphone HCL 2 MG/ML VL IV PRN (04:18)
[2021-09-20] MEDS: MIDODRINE HCL 10 MG TAB PO SCH ×3 (06:07→17:05)
[2021-09-20] MEDS: diphenhdrAMINE HCL 25 MG CAP PO PRN (06:07)
[2021-09-20 08:39] LABS: Basophils # (auto) 0.1 10 ^3/uL (0-0.2); Basophils % (auto) 0.5 % (0.0-2.0); Eosinophils # (auto) 0.1 10 ^3/uL (0-0.8); White Blood Cell 17.8 10^3/uL (4.4-10.8)
[2021-09-20 08:41] LABS: Eosinophils % (auto) 0.5 % (0.0-7.0); Hematocrit 21.5 % (41.0-53.0); Lymphocytes # (auto) 1.2 10 ^3/uL (0.4-5.4); Lymphocytes % (auto) 6.8 % (10.0-50.0); Mean Corpuscular Hemoglobin 22.5 pg (28.0-32.0); Mean Corpuscular Volume 72.4 fL (80.0-100.0); Monocytes # (auto) 1.5 10 ^3/uL (0-1.3); Monocytes % (auto) 8.7 % (0.0-12.0); Neutrophils # (auto) 14.8 10 ^3/uL (1.6-8.6); Neutrophils % (auto) 83.5 % (37.0-80.0); Red Blood Cells 2.96 10^6/uL (4.5-5.90)
[2021-09-20 08:45] LABS: INR 1.14 (0.9-1.15); Partial Thromboplastin Time 37.6 sec (23.6-33.0)
[2021-09-20 08:46] LABS: Potassium 4.2 mmol/L (3.5-5.1)
[2021-09-20 08:53] LABS: Albumin 1.7 g/dL (3.4-5.0); BUN/Creatinine Ratio 6.7; Bilirubin, Total 0.3 mg/dL (0.2-1.0); Calcium 8.9 mg/dL (8.5-10.1); Magnesium 2.6 mg/dL (1.6-2.6); Phosphorus 3.2 mg/dL (2.5-4.90); Total Protein 5.7 g/dL (6.4-8.2)
[2021-09-20 09:05] LABS: Red Cell Distribution Width 20.1 % (11.8-14.3)
[2021-09-20 09:08] LABS: Hemoglobin 6.7 g/dL (13.5-17.5)
[2021-09-20] MEDS: cefTRIAXone 1GM/50ML D5W 50 ML IV SCH (09:19)
[2021-09-20] MEDS: DAKINS HALF STR 0.25% (NaHypochlorite) 473 ML TOPICAL SOL TOP SCH (09:20)
[2021-09-20] MEDS: METOPROLOL SUCCINATE XL 50 MG TAB PO SCH (09:20)
[2021-09-20] MEDS: SEVELAMER 800 MG TAB PO SCH (09:20)
[2021-09-21] MEDS: OXYCODONE W/ ACETAMINOPHEN 5/325MG TABLET PO PRN ×3 (01:49→17:22)
[2021-09-21 05:00] VITALS: BP 86/50
[2021-09-21] MEDS: MIDODRINE HCL 10 MG TAB PO SCH ×3 (06:45→17:21)
[2021-09-21] MEDS: HYDROmorphone HCL 2 MG/ML VL IV PRN ×3 (06:57→21:22)
[2021-09-21 09:00] VITALS: BP 102/60
[2021-09-21] MEDS: DAKINS HALF STR 0.25% (NaHypochlorite) 473 ML TOPICAL SOL TOP SCH (09:47)
[2021-09-21] MEDS: SEVELAMER 800 MG TAB PO SCH (09:47)
[2021-09-21] MEDS: METOPROLOL SUCCINATE XL 50 MG TAB PO SCH (09:47)
[2021-09-21] MEDS: cefTRIAXone 1GM/50ML D5W 50 ML IV SCH (09:47)
[2021-09-21 10:25] LABS: Eosinophils # (auto) 0.1 10 ^3/uL (0-0.8); Hemoglobin 8.5 g/dL (13.5-17.5); Lymphocytes # (auto) 1.1 10 ^3/uL (0.4-5.4); Nucleated Red Blood Cells % 0.1 %
[2021-09-21 10:27] LABS: Basophils # (auto) 0.2 10 ^3/uL (0-0.2); Eosinophils % (auto) 0.7 % (0.0-7.0); Hematocrit 26.9 % (41.0-53.0); Lymphocytes % (auto) 4.9 % (10.0-50.0); Mean Corpuscular Hemoglobin 23.3 pg (28.0-32.0); Mean Corpuscular Hgb Conc. 31.5 g/dL (32.0-36.0); Mean Corpuscular Volume 73.8 fL (80.0-100.0); Monocytes # (auto) 1.5 10 ^3/uL (0-1.3); Neutrophils # (auto) 18.6 10 ^3/uL (1.6-8.6); Neutrophils % (auto) 86.4 % (37.0-80.0); Red Blood Cells 3.64 10^6/uL (4.5-5.90); White Blood Cell 21.5 10^3/uL (4.4-10.8)
[2021-09-21 10:29] LABS: Red Cell Distribution Width 20.6 % (11.8-14.3)
[2021-09-21 10:43] LABS: INR 1.08 (0.9-1.15); Partial Thromboplastin Time 33.9 sec (23.6-33.0)
[2021-09-21 11:01] LABS: Albumin 1.5 g/dL (3.4-5.0); Bilirubin, Total 0.3 mg/dL (0.2-1.0); Magnesium 2.8 mg/dL (1.6-2.6); Phosphorus 3.4 mg/dL (2.5-4.90); Total Protein 5.9 g/dL (6.4-8.2)
[2021-09-21] MEDS ORDERED: POLYETHYLENE GLYCOL 17 GM PWDR PO ONE (12:00)
[2021-09-21 13:00] VITALS: BP 116/73
[2021-09-21 17:00] VITALS: BP 107/52
[2021-09-21 22:00] VITALS: BP 104/27
[2021-09-21 23:12] VITALS: BP 102/52
[2021-09-22] MEDS: MIDODRINE HCL 10 MG TAB PO SCH ×3 (05:18→18:31)
[2021-09-22] MEDS: OXYCODONE W/ ACETAMINOPHEN 5/325MG TABLET PO PRN ×2 (05:19→14:12)
[2021-09-22 05:30] VITALS: BP 112/44
[2021-09-22] MEDS: HYDROmorphone HCL 2 MG/ML VL IV PRN ×3 (06:04→21:05)
[2021-09-22 06:21] LABS: Eosinophils # (auto) 0.1 10 ^3/uL (0-0.8); Eosinophils % (auto) 0.7 % (0.0-7.0); Hemoglobin 8.4 g/dL (13.5-17.5)
[2021-09-22 06:23] LABS: Basophils # (auto) 0.2 10 ^3/uL (0-0.2); Basophils % (auto) 0.9 % (0.0-2.0); Hematocrit 26.1 % (41.0-53.0); Lymphocytes # (auto) 1.1 10 ^3/uL (0.4-5.4); Lymphocytes % (auto) 5.5 % (10.0-50.0); Mean Corpuscular Hemoglobin 23.6 pg (28.0-32.0); Mean Corpuscular Hgb Conc. 32.1 g/dL (32.0-36.0); Mean Corpuscular Volume 73.7 fL (80.0-100.0); Monocytes # (auto) 1.5 10 ^3/uL (0-1.3); Monocytes % (auto) 7.2 % (0.0-12.0); Neutrophils # (auto) 17.6 10 ^3/uL (1.6-8.6); Neutrophils % (auto) 85.7 % (37.0-80.0); Nucleated Red Blood Cells % 0.1 %; Red Blood Cells 3.54 10^6/uL (4.5-5.90); White Blood Cell 20.5 10^3/uL (4.4-10.8)
[2021-09-22 06:33] LABS: Red Cell Distribution Width 20.7 % (11.8-14.3)
[2021-09-22 06:37] LABS: Calcium 9.1 mg/dL (8.5-10.1); Potassium 4.3 mmol/L (3.5-5.1)
[2021-09-22 06:40] LABS: BUN/Creatinine Ratio 6.7
[2021-09-22] MEDS ORDERED: SODIUM CHL 0.9% 1000 ML BAG XX ONE (07:00)
[2021-09-22 08:43] VITALS: BP 109/63
[2021-09-22] MEDS: METOPROLOL SUCCINATE XL 50 MG TAB PO SCH (10:00)
[2021-09-22] MEDS: POLYETHYLENE GLYCOL 17 GM PWDR PO SCH ×2 (10:00→14:10)
[2021-09-22 13:00] VITALS: BP 119/94
[2021-09-22] MEDS: cefTRIAXone 1GM/50ML D5W 50 ML IV SCH (14:09)
[2021-09-22] MEDS: DAKINS HALF STR 0.25% (NaHypochlorite) 473 ML TOPICAL SOL TOP SCH (14:10)
[2021-09-22] MEDS: SEVELAMER 800 MG TAB PO SCH (14:10)
[2021-09-22] MEDS ORDERED: VANCOMYCIN 1GM/250ML 250 ML IV ONE (16:00)
[2021-09-22] MEDS: diphenhdrAMINE HCL 25 MG CAP PO PRN (16:10)
[2021-09-22 17:00] VITALS: BP 98/48
[2021-09-22] MEDS ORDERED: EPOETIN ALFA-EPBX 4,000 UNIT/ML VIAL SC ONE (21:00)
[2021-09-22 22:00] VITALS: BP 114/72
[2021-09-23] MEDS: HYDROmorphone HCL 2 MG/ML VL IV PRN ×3 (03:02→13:16)
[2021-09-23 04:52] VITALS: BP 122/64
[2021-09-23] MEDS: MIDODRINE HCL 10 MG TAB PO SCH ×3 (05:37→17:29)
[2021-09-23 09:00] VITALS: BP 134/46
[2021-09-23] MEDS: SEVELAMER 800 MG TAB PO SCH (09:13)
[2021-09-23] MEDS: METOPROLOL SUCCINATE XL 50 MG TAB PO SCH (09:13)
[2021-09-23] MEDS: DAKINS HALF STR 0.25% (NaHypochlorite) 473 ML TOPICAL SOL TOP SCH (09:14)
[2021-09-23] MEDS: cefTRIAXone 1GM/50ML D5W 50 ML IV SCH (09:14)
[2021-09-23] MEDS: POLYETHYLENE GLYCOL 17 GM PWDR PO SCH (09:14)
[2021-09-23 13:00] VITALS: BP 101/80
[2021-09-23 16:58] VITALS: BP_SYST 112; BP_SYST 90; BP_DIAS 62; BP_DIAS 74
[2021-09-23 18:15] VITALS: BP 96/56
[2021-09-23] MEDS: OXYCODONE W/ ACETAMINOPHEN 5/325MG TABLET PO PRN (18:15)
[2021-09-23] MEDS: diphenhdrAMINE HCL 25 MG CAP PO PRN (21:45)
[2021-09-23 22:00] VITALS: BP 96/50
[2021-09-24] VITALS (9 sets, daily range): BP systolic 91–130; BP diastolic 40–84
[2021-09-24] MEDS: HYDROmorphone HCL 2 MG/ML VL IV PRN (03:02)
[2021-09-24 06:03] LABS: Basophils # (auto) 0.1 10 ^3/uL (0-0.2); Eosinophils # (auto) 0.1 10 ^3/uL (0-0.8); Eosinophils % (auto) 0.5 % (0.0-7.0); Hematocrit 26.3 % (41.0-53.0); Monocytes # (auto) 1.9 10 ^3/uL (0-1.3); Monocytes % (auto) 9.7 % (0.0-12.0); Neutrophils # (auto) 16.1 10 ^3/uL (1.6-8.6); Nucleated Red Blood Cells % 0.1 %; Red Blood Cells 3.55 10^6/uL (4.5-5.90)
[2021-09-24 06:10] LABS: Basophils % (auto) 0.6 % (0.0-2.0); Hemoglobin 8.4 g/dL (13.5-17.5); Lymphocytes # (auto) 1.1 10 ^3/uL (0.4-5.4); Lymphocytes % (auto) 5.9 % (10.0-50.0); Mean Corpuscular Hemoglobin 23.5 pg (28.0-32.0); Mean Corpuscular Hgb Conc. 31.7 g/dL (32.0-36.0); Mean Corpuscular Volume 74.1 fL (80.0-100.0); Neutrophils % (auto) 83.3 % (37.0-80.0); White Blood Cell 19.4 10^3/uL (4.4-10.8)
[2021-09-24] MEDS: MIDODRINE HCL 10 MG TAB PO SCH ×3 (06:20→18:00)
[2021-09-24 06:28] LABS: INR 1.05 (0.9-1.15); Partial Thromboplastin Time 34.5 sec (23.6-33.0)
[2021-09-24] MEDS ORDERED: SODIUM CHL 0.9% 1000 ML BAG XX ONE (07:00)
[2021-09-24] MEDS ORDERED: LIDOCAINE 2%HCL (LOCAL ANESTH.) INJ 20ML MDV ONE ×2 (08:34→09:48)
[2021-09-24] MEDS ORDERED: IODIXANOL 320MG/ML 100ML BTL IV ONE ×5 (08:34→13:05)
[2021-09-24] MEDS ORDERED: HEPARIN IN NS 1000Units/500mL 0 ML ONE (08:35)
[2021-09-24] MEDS: cefTRIAXone 1GM/50ML D5W 50 ML IV SCH (09:00)
[2021-09-24] MEDS ORDERED: fentaNYL CITRATE 100 MCG/2 ML VL ONE ×2 (09:47→14:18)
[2021-09-24] MEDS ORDERED: MIDAZOLAM HCL 2MG/2ML 2ml VIAL (1mg/ml) ONE ×2 (09:47→14:18)
[2021-09-24] MEDS: POLYETHYLENE GLYCOL 17 GM PWDR PO SCH (10:00)
[2021-09-24] MEDS: SEVELAMER 800 MG TAB PO SCH (10:00)
[2021-09-24] MEDS: METOPROLOL SUCCINATE XL 50 MG TAB PO SCH (10:00)
[2021-09-24] MEDS: DAKINS HALF STR 0.25% (NaHypochlorite) 473 ML TOPICAL SOL TOP SCH (10:00)
[2021-09-24] MEDS ORDERED: SODIUM CHL 0.9% 50 ML ONE (10:09)
[2021-09-24] MEDS ORDERED: ANGIOMAX 250 MG VIAL IV ONE (10:09)
[2021-09-24] MEDS ORDERED: diphenhdrAMINE HCL 50 MG/1 ML VL ONE (10:24)
[2021-09-24] MEDS ORDERED: VERAPAMIL 2.5MG/ML INJ 2ML VIAL IV ONE ×2 (12:22→13:11)
[2021-09-24] MEDS ORDERED: NITROGLYCERIN 5MG/ML 10ML VIAL IV ONE (13:11)
[2021-09-24] MEDS: OXYCODONE W/ ACETAMINOPHEN 5/325MG TABLET PO PRN (17:30)
[2021-09-24] MEDS ORDERED: EPOETIN ALFA-EPBX 10,000 UNIT/1ML VIAL SC ONE (21:00)
[2021-09-25] VITALS (9 sets, daily range): BP systolic 83–119; BP diastolic 28–86
[2021-09-25] MEDS: OXYCODONE W/ ACETAMINOPHEN 5/325MG TABLET PO PRN ×4 (00:14→22:50)
[2021-09-25] MEDS ORDERED: MIDODRINE HCL 10 MG TAB PO ONE (03:30)
[2021-09-25] MEDS: MIDODRINE HCL 10 MG TAB PO SCH ×3 (06:00→17:49)
[2021-09-25 06:07] LABS: Hematocrit 21.3 % (41.0-53.0); Mean Corpuscular Hemoglobin 23.3 pg (28.0-32.0); Mean Corpuscular Hgb Conc. 31.1 g/dL (32.0-36.0); Mean Corpuscular Volume 74.9 fL (80.0-100.0); Red Blood Cells 2.84 10^6/uL (4.5-5.90)
[2021-09-25] MEDS ORDERED: ALBUMIN 25% 100 ML IV ONE ×4 (06:15→12:45)
[2021-09-25 06:20] LABS: Calcium 8.8 mg/dL (8.5-10.1); Potassium 4.7 mmol/L (3.5-5.1)
[2021-09-25 06:23] LABS: BUN/Creatinine Ratio 7.1
[2021-09-25 06:32] LABS: Red Cell Distribution Width 21.9 % (11.8-14.3)
[2021-09-25 06:36] LABS: Basophils % (manual) 0 (0.0-2.0); Blast Cells 0; Eosinophils % (manual) 0 (0-7); Hemoglobin 6.6 g/dL (13.5-17.5); Metamyelocytes % 0; Myelocytes % 0; Promyelocytes % 0; Reactive Lymphocytes 0; White Blood Cell 31.2 10^3/uL (4.4-10.8)
[2021-09-25 08:18] LABS: Band Neutrophils % (manual) 2; Lymphocytes % (manual) 4 (10.0-50.0); Monocytes % (manual) 3 (0-12)
[2021-09-25] MEDS: cefTRIAXone 1GM/50ML D5W 50 ML IV SCH (09:33)
[2021-09-25] MEDS: METOPROLOL SUCCINATE XL 50 MG TAB PO SCH (10:00)
[2021-09-25] MEDS: POLYETHYLENE GLYCOL 17 GM PWDR PO SCH (10:00)
[2021-09-25] MEDS: DAKINS HALF STR 0.25% (NaHypochlorite) 473 ML TOPICAL SOL TOP SCH (10:00)
[2021-09-25] MEDS: SEVELAMER 800 MG TAB PO SCH (10:00)
[2021-09-25] MEDS ORDERED: VANCOMYCIN 1GM/250ML 250 ML IV ONE (17:00)
[2021-09-26] VITALS (8 sets, daily range): BP systolic 87–111; BP diastolic 39–72
[2021-09-26] MEDS: MIDODRINE HCL 10 MG TAB PO SCH ×3 (05:44→18:07)
[2021-09-26] MEDS: POLYETHYLENE GLYCOL 17 GM PWDR PO SCH (09:17)
[2021-09-26] MEDS: HYDROmorphone HCL 2 MG/ML VL IV PRN ×3 (09:18→15:49)
[2021-09-26] MEDS: cefTRIAXone 1GM/50ML D5W 50 ML IV SCH (09:18)
[2021-09-26] MEDS: METOPROLOL SUCCINATE XL 50 MG TAB PO SCH (09:19)
[2021-09-26] MEDS: DAKINS HALF STR 0.25% (NaHypochlorite) 473 ML TOPICAL SOL TOP SCH (09:34)
[2021-09-26] MEDS: SEVELAMER 800 MG TAB PO SCH (10:00)
[2021-09-26 15:26] LABS: Basophils # (auto) 0.1 10 ^3/uL (0-0.2); Eosinophils # (auto) 0 10 ^3/uL (0-0.8); Eosinophils % (auto) 0.1 % (0.0-7.0); Hemoglobin 8.1 g/dL (13.5-17.5); Mean Corpuscular Volume 78.9 fL (80.0-100.0)
[2021-09-26 15:28] LABS: Basophils % (auto) 0.4 % (0.0-2.0); Hematocrit 25.8 % (41.0-53.0); Lymphocytes # (auto) 1.1 10 ^3/uL (0.4-5.4); Lymphocytes % (auto) 5.3 % (10.0-50.0); Mean Corpuscular Hemoglobin 24.7 pg (28.0-32.0); Mean Corpuscular Hgb Conc. 31.3 g/dL (32.0-36.0); Monocytes # (auto) 1.5 10 ^3/uL (0-1.3); Monocytes % (auto) 6.8 % (0.0-12.0); Neutrophils # (auto) 18.9 10 ^3/uL (1.6-8.6); Neutrophils % (auto) 87.4 % (37.0-80.0); Nucleated Red Blood Cells % 0.9 %; Red Blood Cells 3.27 10^6/uL (4.5-5.90); White Blood Cell 21.7 10^3/uL (4.4-10.8)
[2021-09-26 15:49] LABS: Red Cell Distribution Width 21.9 % (11.8-14.3)
[2021-09-26] MEDS: OXYCODONE W/ ACETAMINOPHEN 5/325MG TABLET PO PRN (23:18)
[2021-09-27] VITALS (9 sets, daily range): BP systolic 95–112; BP diastolic 56–64
[2021-09-27] MEDS: OXYCODONE W/ ACETAMINOPHEN 5/325MG TABLET PO PRN ×3 (05:11→20:47)
[2021-09-27 05:42] LABS: Basophils # (auto) 0.1 10 ^3/uL (0-0.2); Eosinophils # (auto) 0.1 10 ^3/uL (0-0.8); Eosinophils % (auto) 0.4 % (0.0-7.0); Nucleated Red Blood Cells % 0.9 %
[2021-09-27 05:44] LABS: Basophils % (auto) 0.3 % (0.0-2.0); Hematocrit 22.4 % (41.0-53.0); Hemoglobin 7.2 g/dL (13.5-17.5); Lymphocytes # (auto) 0.9 10 ^3/uL (0.4-5.4); Lymphocytes % (auto) 4.1 % (10.0-50.0); Mean Corpuscular Hemoglobin 25.4 pg (28.0-32.0); Mean Corpuscular Volume 79.2 fL (80.0-100.0); Monocytes # (auto) 1.7 10 ^3/uL (0-1.3); Monocytes % (auto) 8.1 % (0.0-12.0); Neutrophils # (auto) 18.4 10 ^3/uL (1.6-8.6); Neutrophils % (auto) 87.1 % (37.0-80.0); Red Blood Cells 2.83 10^6/uL (4.5-5.90); White Blood Cell 21.1 10^3/uL (4.4-10.8)
[2021-09-27 06:08] LABS: Red Cell Distribution Width 22.2 % (11.8-14.3)
[2021-09-27] MEDS: MIDODRINE HCL 10 MG TAB PO SCH ×3 (06:56→18:16)
[2021-09-27] MEDS: cefTRIAXone 1GM/50ML D5W 50 ML IV SCH (08:21)
[2021-09-27] MEDS: HYDROmorphone HCL 2 MG/ML VL IV PRN ×2 (08:21→14:50)
[2021-09-27] MEDS: DAKINS HALF STR 0.25% (NaHypochlorite) 473 ML TOPICAL SOL TOP SCH (08:22)
[2021-09-27] MEDS: POLYETHYLENE GLYCOL 17 GM PWDR PO SCH (08:22)
[2021-09-27] MEDS: METOPROLOL SUCCINATE XL 50 MG TAB PO SCH (08:22)
[2021-09-27] MEDS: SEVELAMER 800 MG TAB PO SCH (10:00)
[2021-09-27] MEDS ORDERED: traMADol HCL 50 MG TAB PO ONE (14:30)
[2021-09-27] MEDS ORDERED: HYDROmorphone HCL 2 MG/ML VL IV ONE (15:00)
[2021-09-28] MEDS: HYDROmorphone HCL 2 MG/ML VL IV PRN ×4 (01:20→21:29)
[2021-09-28 05:00] VITALS: BP 107/73
[2021-09-28] MEDS: MIDODRINE HCL 10 MG TAB PO SCH ×3 (05:42→17:01)
[2021-09-28] MEDS ORDERED: SODIUM CHL 0.9% 1000 ML BAG XX ONE (07:00)
[2021-09-28] MEDS: cefTRIAXone 1GM/50ML D5W 50 ML IV SCH (08:35)
[2021-09-28 09:00] VITALS: BP 140/82
[2021-09-28 09:27] LABS: BUN/Creatinine Ratio 8.8; Calcium 9.3 mg/dL (8.5-10.1); Potassium 4.5 mmol/L (3.5-5.1)
[2021-09-28 09:28] LABS: Basophils # (auto) 0.1 10 ^3/uL (0-0.2); Basophils % (auto) 0.4 % (0.0-2.0); Eosinophils # (auto) 0.2 10 ^3/uL (0-0.8); Eosinophils % (auto) 0.9 % (0.0-7.0); Hematocrit 27.3 % (41.0-53.0); Hemoglobin 8.7 g/dL (13.5-17.5); Lymphocytes # (auto) 0.8 10 ^3/uL (0.4-5.4); Lymphocytes % (auto) 3.5 % (10.0-50.0); Mean Corpuscular Hemoglobin 25.8 pg (28.0-32.0); Mean Corpuscular Hgb Conc. 31.9 g/dL (32.0-36.0); Monocytes # (auto) 1.5 10 ^3/uL (0-1.3); Monocytes % (auto) 6.2 % (0.0-12.0); Nucleated Red Blood Cells % 0.8 %; Red Blood Cells 3.37 10^6/uL (4.5-5.90); Red Cell Distribution Width 21.2 % (11.8-14.3); White Blood Cell 23.6 10^3/uL (4.4-10.8)
[2021-09-28 09:33] LABS: INR 1.05 (0.9-1.15); Partial Thromboplastin Time 31.9 sec (23.6-33.0)
[2021-09-28] MEDS: METOPROLOL SUCCINATE XL 50 MG TAB PO SCH (10:00)
[2021-09-28] MEDS: SEVELAMER 800 MG TAB PO SCH (10:00)
[2021-09-28] MEDS: POLYETHYLENE GLYCOL 17 GM PWDR PO SCH (10:00)
[2021-09-28] MEDS ORDERED: ceFAZolin 1GM/50ML 100 ML IV ONE (11:27)
[2021-09-28] MEDS ORDERED: MORPHINE SULFATE INJECTION 2 MG/ML SYRG IV PRN (11:45)
[2021-09-28] MEDS ORDERED: HYDROmorphone HCL 2 MG/ML VL IV PRN (11:45)
[2021-09-28] MEDS ORDERED: METOCLOPRAMIDE HCL 5MG/ml INJ 2ml VIAL IV PRN (11:45)
[2021-09-28] MEDS ORDERED: ACCU-CHEK COMFORT CURVE STRIP VI ONE (11:45)
[2021-09-28] MEDS ORDERED: BUPIVACAINE 0.5% P/F INJ 10 ML VIAL ONE (11:58)
[2021-09-28] MEDS ORDERED: EPINEPHrine HCL 1 MG/1 ML AMP ONE (11:58)
[2021-09-28] MEDS ORDERED: ONDANSETRON HCL 4 MG/2 ML VIAL ONE (12:00)
[2021-09-28] MEDS ORDERED: MIDAZOLAM HCL 2MG/2ML 2ml VIAL (1mg/ml) ONE (12:00)
[2021-09-28] MEDS ORDERED: PROPOFOL 10 MG/ML 20 ML IV ONE (12:00)
[2021-09-28] MEDS ORDERED: fentaNYL CITRATE 100 MCG/2 ML VL ONE (12:00)
[2021-09-28] MEDS ORDERED: SODIUM CHLORIDE LOCK 10 ML ONE (12:00)
[2021-09-28 13:00] VITALS: BP 128/95
[2021-09-28 17:00] VITALS: BP 118/79
[2021-09-28] MEDS: DAKINS HALF STR 0.25% (NaHypochlorite) 473 ML TOPICAL SOL TOP SCH (17:01)
[2021-09-28 20:00] VITALS: BP 103/55
[2021-09-28] MEDS ORDERED: EPOETIN ALFA-EPBX 10,000 UNIT/1ML VIAL SC ONE (21:00)
[2021-09-29] MEDS: HYDROmorphone HCL 2 MG/ML VL IV PRN ×4 (04:17→20:49)
[2021-09-29] MEDS ORDERED: SODIUM CHL 0.9% 1000 ML BAG XX ONE (07:00)
[2021-09-29 07:05] LABS: Basophils # (auto) 0.1 10 ^3/uL (0-0.2); Basophils % (auto) 0.4 % (0.0-2.0); Eosinophils # (auto) 0 10 ^3/uL (0-0.8); Hematocrit 31.3 % (41.0-53.0); Hemoglobin 9.9 g/dL (13.5-17.5); Lymphocytes # (auto) 0.7 10 ^3/uL (0.4-5.4); Mean Corpuscular Hemoglobin 25.8 pg (28.0-32.0); Mean Corpuscular Hgb Conc. 31.6 g/dL (32.0-36.0); Mean Corpuscular Volume 81.6 fL (80.0-100.0); Monocytes # (auto) 0.8 10 ^3/uL (0-1.3); Monocytes % (auto) 3.2 % (0.0-12.0); Neutrophils # (auto) 22.7 10 ^3/uL (1.6-8.6); Neutrophils % (auto) 93.4 % (37.0-80.0); Nucleated Red Blood Cells % 0.8 %; Red Blood Cells 3.84 10^6/uL (4.5-5.90); Red Cell Distribution Width 21.4 % (11.8-14.3); White Blood Cell 24.3 10^3/uL (4.4-10.8)
[2021-09-29 07:15] LABS: Calcium 9.1 mg/dL (8.5-10.1)
[2021-09-29] MEDS: MIDODRINE HCL 10 MG TAB PO SCH ×3 (07:17→17:31)
[2021-09-29 07:19] LABS: BUN/Creatinine Ratio 8.9
[2021-09-29 08:55] LABS: Potassium 5.7 mmol/L (3.5-5.1)
[2021-09-29 09:00] VITALS: BP 93/66
[2021-09-29] MEDS: SEVELAMER 800 MG TAB PO SCH ×3 (10:15→17:31)
[2021-09-29] MEDS: cefTRIAXone 1GM/50ML D5W 50 ML IV SCH (10:16)
[2021-09-29] MEDS: DAKINS HALF STR 0.25% (NaHypochlorite) 473 ML TOPICAL SOL TOP SCH (10:17)
[2021-09-29] MEDS ORDERED: SODIUM ZIRCONIUM CYCL 10 GM PAK PO ONE (11:15)
[2021-09-29 13:00] VITALS: BP 111/76
[2021-09-29 17:08] VITALS: BP 120/77
[2021-09-29] MEDS: OXYCODONE W/ ACETAMINOPHEN 5/325MG TABLET PO PRN (17:31)
[2021-09-29] MEDS ORDERED: EPOETIN ALFA-EPBX 10,000 UNIT/1ML VIAL SC ONE (21:00)
[2021-09-29 22:00] VITALS: BP 120/67
[2021-09-30] MEDS: HYDROmorphone HCL 2 MG/ML VL IV PRN ×5 (02:13→22:05)
[2021-09-30 05:00] VITALS: BP 135/67
[2021-09-30] MEDS: OXYCODONE W/ ACETAMINOPHEN 5/325MG TABLET PO PRN ×2 (05:18→14:15)
[2021-09-30] MEDS: MIDODRINE HCL 10 MG TAB PO SCH ×3 (06:23→18:24)
[2021-09-30] MEDS ORDERED: SODIUM CHL 0.9% 1000 ML BAG XX ONE (07:00)
[2021-09-30] MEDS: SEVELAMER 800 MG TAB PO SCH ×3 (08:00→18:00)
[2021-09-30 09:00] VITALS: BP 126/72
[2021-09-30] MEDS: diphenhdrAMINE HCL 25 MG CAP PO PRN (09:39)
[2021-09-30] MEDS: DAKINS HALF STR 0.25% (NaHypochlorite) 473 ML TOPICAL SOL TOP SCH (09:58)
[2021-09-30 10:41] VITALS: BP 126/68
[2021-09-30] MEDS: cefTRIAXone 1GM/50ML D5W 50 ML IV SCH (10:48)
[2021-09-30 12:31] VITALS: BP 106/65
[2021-09-30 14:06] LABS: Potassium 4.7 mmol/L (3.5-5.1)
[2021-09-30 14:08] LABS: BUN/Creatinine Ratio 9.3
[2021-09-30 14:12] LABS: Basophils # (auto) 0 10 ^3/uL (0-0.2); Basophils % (auto) 0.2 % (0.0-2.0)
[2021-09-30 14:14] LABS: Eosinophils # (auto) 0.1 10 ^3/uL (0-0.8); Eosinophils % (auto) 0.6 % (0.0-7.0); Hematocrit 30.6 % (41.0-53.0); Hemoglobin 9.5 g/dL (13.5-17.5); Lymphocytes # (auto) 0.8 10 ^3/uL (0.4-5.4); Lymphocytes % (auto) 3.7 % (10.0-50.0); Mean Corpuscular Hemoglobin 25.1 pg (28.0-32.0); Monocytes # (auto) 1.8 10 ^3/uL (0-1.3); Monocytes % (auto) 8.3 % (0.0-12.0); Neutrophils # (auto) 18.7 10 ^3/uL (1.6-8.6); Neutrophils % (auto) 87.2 % (37.0-80.0); Nucleated Red Blood Cells % 0.5 %; Red Blood Cells 3.77 10^6/uL (4.5-5.90); White Blood Cell 21.5 10^3/uL (4.4-10.8)
[2021-09-30 14:19] LABS: Red Cell Distribution Width 22.8 % (11.8-14.3)
[2021-09-30] MEDS ORDERED: VANCOMYCIN 1GM/250ML 250 ML IV ONE (16:00)
[2021-09-30 17:00] VITALS: BP 150/55
[2021-09-30] MEDS ORDERED: EPOETIN ALFA-EPBX 10,000 UNIT/1ML VIAL SC ONE (21:00)
[2021-09-30 22:28] VITALS: BP 121/61
[2021-10-01] MEDS: HYDROmorphone HCL 2 MG/ML VL IV PRN ×5 (02:20→22:20)
[2021-10-01 05:30] VITALS: BP 118/68
[2021-10-01] MEDS: MIDODRINE HCL 10 MG TAB PO SCH ×4 (06:10→18:16)
[2021-10-01] MEDS: SEVELAMER 800 MG TAB PO SCH ×4 (08:00→18:16)
[2021-10-01 08:15] VITALS: BP 146/84
[2021-10-01] MEDS: cefTRIAXone 1GM/50ML D5W 50 ML IV SCH (08:50)
[2021-10-01 09:00] VITALS: BP 146/84
[2021-10-01] MEDS: DAKINS HALF STR 0.25% (NaHypochlorite) 473 ML TOPICAL SOL TOP SCH (10:29)
[2021-10-01 13:00] VITALS: BP 103/58
[2021-10-01 17:00] VITALS: BP 122/85
[2021-10-01 22:00] VITALS: BP 124/69
[2021-10-02] MEDS: OXYCODONE W/ ACETAMINOPHEN 5/325MG TABLET PO PRN ×3 (00:42→23:30)
[2021-10-02] MEDS: HYDROmorphone HCL 2 MG/ML VL IV PRN ×4 (03:48→20:06)
[2021-10-02 05:00] VITALS: BP 153/80
[2021-10-02] MEDS: MIDODRINE HCL 10 MG TAB PO SCH ×3 (06:00→18:09)
[2021-10-02] MEDS ORDERED: SODIUM CHL 0.9% 1000 ML BAG XX ONE (07:00)
[2021-10-02] MEDS: SEVELAMER 800 MG TAB PO SCH ×3 (08:00→18:09)
[2021-10-02 08:15] VITALS: BP 106/67
[2021-10-02 09:00] VITALS: BP 106/67
[2021-10-02] MEDS: DAKINS HALF STR 0.25% (NaHypochlorite) 473 ML TOPICAL SOL TOP SCH (09:10)
[2021-10-02] MEDS: cefTRIAXone 1GM/50ML D5W 50 ML IV SCH (09:10)
[2021-10-02 13:00] VITALS: BP 162/75
[2021-10-02 16:14] LABS: Hematocrit 29.9 % (41.0-53.0)
[2021-10-02 16:18] LABS: Hemoglobin 9.4 g/dL (13.5-17.5)
[2021-10-02 17:00] VITALS: BP 132/82
[2021-10-02] MEDS ORDERED: VANCOMYCIN 1GM/250ML 250 ML IV ONE (20:00)
[2021-10-02] MEDS ORDERED: EPOETIN ALFA-EPBX 10,000 UNIT/1ML VIAL SC ONE (21:00)
[2021-10-02 21:44] VITALS: BP 127/74
[2021-10-03] MEDS: HYDROmorphone HCL 2 MG/ML VL IV PRN ×3 (00:44→09:20)
[2021-10-03 05:00] VITALS: BP 118/75
[2021-10-03] MEDS: MIDODRINE HCL 10 MG TAB PO SCH ×3 (06:10→17:51)
[2021-10-03] MEDS: SEVELAMER 800 MG TAB PO SCH ×4 (08:00→17:51)
[2021-10-03 08:15] VITALS: BP 116/79
[2021-10-03] MEDS: cefTRIAXone 1GM/50ML D5W 50 ML IV SCH (08:45)
[2021-10-03 08:52] VITALS: BP 116/79
[2021-10-03] MEDS: DAKINS HALF STR 0.25% (NaHypochlorite) 473 ML TOPICAL SOL TOP SCH (10:12)
[2021-10-03] MEDS: OXYCODONE W/ ACETAMINOPHEN 5/325MG TABLET PO PRN (12:00)
[2021-10-03 13:00] VITALS: BP 112/75
[2021-10-03 17:00] VITALS: BP 110/74
== END 2021-10-03 18:40 | DRG 270 ==
LOC: ER 13:10 → TELE 15:33 → TELE-WESTW 21:09 → WEST WING 09-27 14:04
PROVIDERS: ADMIT Nurse Practitioner Acute Care; ATTEND Internal Medicine
PROC: 5A1D70Z Performance of Urinary Filtration, Intermittent, Less than 6 Hours Per Day (ICD-10-PCS; 2021-09-17)
PROC: 5A1D70Z Performance of Urinary Filtration, Intermittent, Less than 6 Hours Per Day (ICD-10-PCS; 2021-09-19)
PROC: 30233N1 Transfusion of Nonautologous Red Blood Cells into Peripheral Vein, Percutaneous Approach (ICD-10-PCS; 2021-09-20)
PROC: 05HA33Z Insertion of Infusion Device into Left Brachial Vein, Percutaneous Approach (ICD-10-PCS; 2021-09-21)
PROC: B54NZZA Ultrasonography of Left Upper Extremity Veins, Guidance (ICD-10-PCS; 2021-09-21)
PROC: 5A1D70Z Performance of Urinary Filtration, Intermittent, Less than 6 Hours Per Day (ICD-10-PCS; 2021-09-22)
PROC: 047P3ZZ Dilation of Right Anterior Tibial Artery, Percutaneous Approach (ICD-10-PCS; 2021-09-24)
PROC: 047K3ZZ Dilation of Right Femoral Artery, Percutaneous Approach (ICD-10-PCS; 2021-09-24)
PROC: B41FYZZ Fluoroscopy of Right Lower Extremity Arteries using Other Contrast (ICD-10-PCS; 2021-09-24)
PROC: 04CP3ZZ Extirpation of Matter from Right Anterior Tibial Artery, Percutaneous Approach (ICD-10-PCS; 2021-09-24)
PROC: B44FZZZ Ultrasonography of Right Lower Extremity Arteries (ICD-10-PCS; 2021-09-24)
PROC: 5A1D70Z Performance of Urinary Filtration, Intermittent, Less than 6 Hours Per Day (ICD-10-PCS; 2021-09-25)
PROC: 0Y6H0Z1 Detachment at Right Lower Leg, High, Open Approach (ICD-10-PCS; principal; 2021-09-28 12:12)
PROC: 5A1D70Z Performance of Urinary Filtration, Intermittent, Less than 6 Hours Per Day (ICD-10-PCS; 2021-09-30)
PROC: 5A1D70Z Performance of Urinary Filtration, Intermittent, Less than 6 Hours Per Day (ICD-10-PCS; 2021-10-02)
DX: E11.52 Type 2 diabetes mellitus with diabetic peripheral angiopathy with gangrene (principal); E43 Unspecified severe protein-calorie malnutrition; N18.6 End stage renal disease; I13.2 Hypertensive heart and chronic kidney disease with heart failure and with stage 5 chronic kidney disease, or end stage renal disease; D62 Acute posthemorrhagic anemia; I38 Endocarditis, valve unspecified; T81.30XA Disruption of wound, unspecified, initial encounter; M86.8X7 Other osteomyelitis, ankle and foot; E11.69 Type 2 diabetes mellitus with other specified complication; Z99.2 Dependence on renal dialysis; D75.839 Thrombocytosis, unspecified; E87.5 Hyperkalemia; D63.1 Anemia in chronic kidney disease; E11.22 Type 2 diabetes mellitus with diabetic chronic kidney disease; K59.00 Constipation, unspecified; E21.3 Hyperparathyroidism, unspecified; Z20.822 Contact with and (suspected) exposure to COVID-19; I95.9 Hypotension, unspecified; I25.10 Atherosclerotic heart disease of native coronary artery without angina pectoris; I50.9 Heart failure, unspecified; L97.519 Non-pressure chronic ulcer of other part of right foot with unspecified severity; Y83.8 Other surgical procedures as the cause of abnormal reaction of the patient, or of later complication, without mention of misadventure at the time of the procedure; I77.1 Stricture of artery; Y92.89 Other specified places as the place of occurrence of the external cause; Z91.040 Latex allergy status; Z91.010 Allergy to peanuts; Z91.018 Allergy to other foods; Z91.09 Other allergy status, other than to drugs and biological substances; Z79.01 Long term (current) use of anticoagulants; Z79.899 Other long term (current) drug therapy; Z86.79 Personal history of other diseases of the circulatory system; Z87.891 Personal history of nicotine dependence; Z89.511 Acquired absence of right leg below knee; Z89.512 Acquired absence of left leg below knee; Z88.8 Allergy status to other drugs, medicaments and biological substances; Z90.49 Acquired absence of other specified parts of digestive tract; Z68.27 Body mass index [BMI] 27.0-27.9, adult
CPT/HCPCS: 36415; 37224; 37229; 71045; 73700; 73718; 75710; 76942; 80048; 80053; 80202; 82270; 82962; 83605; 83615; 83735; 83880; 84100; 84443; 84484; 85007; 85014; 85018; 85025; 85027; 85045; 85610; 85652; 85730; 86850; 86900; 86901; 86920; 87040; 87081; 87426; 90935; 93005; 93925; 93971; 96361; 96365; 96367; 96375; 97110; 97163; 97530; 99152; 99153; C1724; C1725; G0378; J0171; J0690; J0696; J1642; J2250; J2405; J2704; J3490; P9047; Q9967

== ENCOUNTER 2021-11-26 00:45 | Inpatient (IN) | payer MEDICARE, MEDICAID ==
[~2021-11-26] VITALS: Ht 152.4 cm; Wt 97.6 kg
[2021-11-26 04:51] LABS: Basophils # (auto) 0.1 10 ^3/uL (0-0.2); Eosinophils # (auto) 0.1 10 ^3/uL (0-0.8)
[2021-11-26 04:56] LABS: Basophils % (auto) 1.1 % (0.0-2.0); Eosinophils % (auto) 0.7 % (0.0-7.0); Hematocrit 37.3 % (41.0-53.0); Hemoglobin 11.7 g/dL (13.5-17.5); Lymphocytes # (auto) 0.8 10 ^3/uL (0.4-5.4); Lymphocytes % (auto) 8.3 % (10.0-50.0); Mean Corpuscular Hemoglobin 25.1 pg (28.0-32.0); Mean Corpuscular Hgb Conc. 31.3 g/dL (32.0-36.0); Mean Corpuscular Volume 80.1 fL (80.0-100.0); Monocytes # (auto) 0.8 10 ^3/uL (0-1.3); Monocytes % (auto) 8.9 % (0.0-12.0); Neutrophils # (auto) 7.4 10 ^3/uL (1.6-8.6); Nucleated Red Blood Cells % 0.1 %; Red Blood Cells 4.66 10^6/uL (4.5-5.90); White Blood Cell 9.1 10^3/uL (4.4-10.8)
[2021-11-26 05:06] LABS: Red Cell Distribution Width 21.6 % (11.8-14.3)
[2021-11-26 05:10] LABS: Albumin 2.1 g/dL (3.4-5.0); Anion Gap 13 (5-15); Blood Urea Nitrogen 78 mg/dL (7-18); Calcium 9.7 mg/dL (8.5-10.1); Carbon Dioxide 22 mmol/L (21-32); Chloride 98 mmol/L (98-107); Glucose 87 mg/dL (74-106); Lipase 53 U/L (73-393); Sodium 133 mmol/L (136-145)
[2021-11-26 05:18] LABS: Alanine Aminotransferase < 6 U/L (16-61); Alkaline Phosphatase 84 U/L (45-117); Aspartate Aminotransferase 22 U/L (15-37); BUN/Creatinine Ratio 7.6; Bilirubin, Total 0.4 mg/dL (0.2-1.0); GFR African American 7 mL/min; GFR Non-African American 6 mL/min; Total Protein 6.8 g/dL (6.4-8.2)
[2021-11-26 05:31] LABS: Magnesium 4.1 mg/dL (1.6-2.6); Potassium 6.9 mmol/L (3.5-5.1)
[2021-11-26] MEDS ORDERED: CALCIUM GLUC IV ONE (06:00)
[2021-11-26] MEDS ORDERED: [UNRECOGNIZED DRUG - OTHER] IV ONE (06:00)
[2021-11-26] MEDS ORDERED: SODIUM BICARBONATE 8.4% INJ 50ML SYRINGE IV ONE (08:00)
[2021-11-26] MEDS ORDERED: InsuLIN REG 1unit/0.01ml Soln (100units/ml) IV ONE (08:00)
[2021-11-26] MEDS ORDERED: ENOXAPARIN SOD 120 MG/0.8 ML SYRINGE SC ONE (08:00)
[2021-11-26] MEDS ORDERED: DEXTROSE (50%) 50ML SYRG IV ONE (08:00)
[2021-11-26] MEDS ORDERED: ALBUTEROL SULF 2.5 MG/0.5ML(0.5%) NEB SOLN NEB ONE (08:00)
[2021-11-26] MEDS ORDERED: CALCIUM GLUC 1,000mg/50ml-NS 50 ML IV ONE ×2 (08:00→10:59)
[2021-11-26] MEDS ORDERED: FUROSEMIDE 20 MG/2 ML VIAL IV ONE (08:00)
[2021-11-26] MEDS ORDERED: SODIUM ZIRCONIUM CYCL 10 GM PAK PO ONE ×2 (08:00→10:15)
[2021-11-26] MEDS: SODIUM ZIRCONIUM CYCL 10 GM PAK PO ONE ×2 (09:35→10:20)
[2021-11-26] MEDS ORDERED: NITROGLYCERIN 0.4 MG SL TAB SL PRN (13:45)
[2021-11-26] MEDS ORDERED: MORPHINE SULFATE INJECTION 2 MG/ML SYRG IV PRN (13:45)
[2021-11-26] MEDS ORDERED: ONDANSETRON HCL 4 MG/2 ML VIAL IV ONE (14:15)
[2021-11-26] MEDS ORDERED: MORPHINE SULFATE INJECTION 2 MG/ML SYRG IV ONE (14:15)
[2021-11-26] MEDS: ENOXAPARIN SOD 30 MG/0.3 ML SYRINGE SC SCH (14:33)
[2021-11-26] MEDS ORDERED: SODIUM CHL 0.9% 1000 ML BAG XX ONE (15:30)
[2021-11-26] MEDS: HYDROmorphone HCL 2 MG/ML VL IV PRN (18:36)
[2021-11-26 21:38] VITALS: BP 107/69
[2021-11-26] MEDS ORDERED: FENT12DI TD (23:13)
[2021-11-27] MEDS: HYDROmorphone HCL 2 MG/ML VL IV PRN ×4 (00:39→18:14)
[2021-11-27 05:24] VITALS: BP 104/71
[2021-11-27 07:00] LABS: Albumin 1.9 g/dL (3.4-5.0); Anion Gap 13 (5-15); Calcium 9.6 mg/dL (8.5-10.1); Carbon Dioxide 25 mmol/L (21-32); Chloride 99 mmol/L (98-107); Glucose 93 mg/dL (74-106); Sodium 137 mmol/L (136-145)
[2021-11-27 07:02] LABS: Alanine Aminotransferase < 6 U/L (16-61); Aspartate Aminotransferase 10 U/L (15-37); BUN/Creatinine Ratio 7.8; GFR African American 7 mL/min; GFR Non-African American 6 mL/min
[2021-11-27 07:04] LABS: Alkaline Phosphatase 79 U/L (45-117); Bilirubin, Total 0.4 mg/dL (0.2-1.0); Total Protein 5.2 g/dL (6.4-8.2)
[2021-11-27 07:09] LABS: Basophils # (auto) 0.1 10 ^3/uL (0-0.2); Basophils % (auto) 0.9 % (0.0-2.0); Eosinophils # (auto) 0.1 10 ^3/uL (0-0.8); Eosinophils % (auto) 1.1 % (0.0-7.0); Hematocrit 32.1 % (41.0-53.0); Hemoglobin 10.2 g/dL (13.5-17.5); Lymphocytes # (auto) 0.8 10 ^3/uL (0.4-5.4); Lymphocytes % (auto) 10.2 % (10.0-50.0); Mean Corpuscular Hemoglobin 24.9 pg (28.0-32.0); Mean Corpuscular Hgb Conc. 31.8 g/dL (32.0-36.0); Mean Corpuscular Volume 78.1 fL (80.0-100.0); Monocytes # (auto) 0.6 10 ^3/uL (0-1.3); Monocytes % (auto) 7.7 % (0.0-12.0); Neutrophils # (auto) 5.9 10 ^3/uL (1.6-8.6); Neutrophils % (auto) 80.1 % (37.0-80.0); Nucleated Red Blood Cells % 0.1 %; Red Blood Cells 4.11 10^6/uL (4.5-5.90); White Blood Cell 7.4 10^3/uL (4.4-10.8)
[2021-11-27 07:11] LABS: Red Cell Distribution Width 21.8 % (11.8-14.3)
[2021-11-27 08:01] LABS: Blood Urea Nitrogen 80 mg/dL (7-18); Potassium 5.9 mmol/L (3.5-5.1)
[2021-11-27 08:48] VITALS: BP 90/62
[2021-11-27 10:44] LABS: INR 1.07 (0.9-1.15)
[2021-11-27 12:56] VITALS: BP 93/62
[2021-11-27] MEDS ORDERED: ALBUMIN 25% 200 ML IV ONE ×2 (14:14→14:45)
[2021-11-27] MEDS ORDERED: ALBUMIN 25% 100 ML IV ONE (15:30)
[2021-11-27 16:50] VITALS: BP 103/58
[2021-11-27 22:00] VITALS: BP 89/54
[2021-11-28 05:00] VITALS: BP 92/54
[2021-11-28 06:39] LABS: Calcium 9.2 mg/dL (8.5-10.1); Chloride 99 mmol/L (98-107); Potassium 5.2 mmol/L (3.5-5.1); Sodium 138 mmol/L (136-145)
[2021-11-28 06:45] LABS: Alanine Aminotransferase < 6 U/L (16-61); Albumin 2.4 g/dL (3.4-5.0); Alkaline Phosphatase 64 U/L (45-117); Anion Gap 10 (5-15); Aspartate Aminotransferase 8 U/L (15-37); BUN/Creatinine Ratio 7.4; Bilirubin, Total 0.3 mg/dL (0.2-1.0); Blood Urea Nitrogen 69 mg/dL (7-18); Carbon Dioxide 29 mmol/L (21-32); GFR African American 8 mL/min; GFR Non-African American 6 mL/min; Glucose 70 mg/dL (74-106)
[2021-11-28 09:00] VITALS: BP 88/46
[2021-11-28] MEDS: ENOXAPARIN SOD 30 MG/0.3 ML SYRINGE SC SCH (10:00)
[2021-11-28] MEDS ORDERED: OXYCODONE W/ ACETAMINOPHEN 5/325MG TABLET PO PRN (10:30)
[2021-11-28] MEDS: OXYCODONE W/ ACETAMINOPHEN 5/325MG TABLET PO PRN ×2 (12:43→19:22)
[2021-11-28 13:00] VITALS: BP 95/24
[2021-11-28 16:47] VITALS: BP 96/62
[2021-11-28 22:00] VITALS: BP 112/71
[2021-11-29] MEDS: OXYCODONE W/ ACETAMINOPHEN 5/325MG TABLET PO PRN ×2 (01:15→09:08)
[2021-11-29 05:00] VITALS: BP 107/63
[2021-11-29 09:00] VITALS: BP 110/67
[2021-11-29 10:09] LABS: Anion Gap 10 (5-15); Blood Urea Nitrogen 73 mg/dL (7-18); Calcium 8.7 mg/dL (8.5-10.1); Carbon Dioxide 28 mmol/L (21-32); Chloride 99 mmol/L (98-107); Glucose 85 mg/dL (74-106); Potassium 5.3 mmol/L (3.5-5.1); Sodium 137 mmol/L (136-145)
[2021-11-29 10:13] LABS: Alanine Aminotransferase < 6 U/L (16-61); Alkaline Phosphatase 59 U/L (45-117); Aspartate Aminotransferase 14 U/L (15-37); BUN/Creatinine Ratio 7.7; Bilirubin, Total 0.3 mg/dL (0.2-1.0); GFR African American 7 mL/min; GFR Non-African American 6 mL/min; Total Protein 4.6 g/dL (6.4-8.2)
[2021-11-29] MEDS: MORPHINE SULFATE INJECTION 2 MG/ML SYRG IV PRN ×3 (13:42→23:38)
[2021-11-29 17:00] VITALS: BP 113/67
[2021-11-29] MEDS: TEMAZEPAM 15 MG CAP PO PRN (21:12)
[2021-11-29 22:00] VITALS: BP 142/82
[2021-11-30] VITALS (7 sets, daily range): BP systolic 101–142; BP diastolic 50–85
[2021-11-30 05:53] LABS: Albumin 1.9 g/dL (3.4-5.0); Anion Gap 10 (5-15); Blood Urea Nitrogen 79 mg/dL (7-18); Calcium 8.5 mg/dL (8.5-10.1); Carbon Dioxide 28 mmol/L (21-32); Chloride 99 mmol/L (98-107); Glucose 69 mg/dL (74-106); Sodium 137 mmol/L (136-145)
[2021-11-30 05:56] LABS: Alanine Aminotransferase < 6 U/L (16-61); Alkaline Phosphatase 55 U/L (45-117); Aspartate Aminotransferase 11 U/L (15-37); BUN/Creatinine Ratio 8.2; Bilirubin, Total 0.4 mg/dL (0.2-1.0); GFR African American 7 mL/min; GFR Non-African American 6 mL/min; Total Protein 4.5 g/dL (6.4-8.2)
[2021-11-30 06:51] LABS: Potassium 5.7 mmol/L (3.5-5.1)
[2021-11-30] MEDS ORDERED: SODIUM CHL 0.9% 1000 ML BAG XX ONE (07:00)
[2021-11-30] MEDS: MORPHINE SULFATE INJECTION 2 MG/ML SYRG IV PRN ×4 (07:04→22:02)
[2021-11-30] MEDS ORDERED: SODIUM ZIRCONIUM CYCL 10 GM PAK PO ONE (12:45)
[2021-11-30] MEDS: RIVAROXABAN 10 MG TAB PO SCH (22:00)
[2021-11-30] MEDS: TAMSULOSIN HYDROCHLORIDE 0.4 MG CAP PO SCH (23:19)
[2021-12-01] MEDS: TEMAZEPAM 15 MG CAP PO PRN ×2 (00:20→21:31)
[2021-12-01 05:00] VITALS: BP 106/77
[2021-12-01 09:00] VITALS: BP 120/79
[2021-12-01] MEDS: METOPROLOL SUCCINATE XL 50 MG TAB PO SCH (10:00)
[2021-12-01] MEDS: dilTIAZem 120MG ER CAP PO SCH (10:00)
[2021-12-01] MEDS: amLODIPine BESYLATE 5 MG TAB PO SCH (10:00)
[2021-12-01] MEDS: RIVAROXABAN 10 MG TAB PO SCH ×2 (10:00→22:00)
[2021-12-01] MEDS: MORPHINE SULFATE INJECTION 2 MG/ML SYRG IV PRN (10:20)
[2021-12-01] MEDS: TAMSULOSIN HYDROCHLORIDE 0.4 MG CAP PO SCH ×2 (10:20→22:42)
[2021-12-01] MEDS ORDERED: SODIUM ZIRCONIUM CYCL 10 GM PAK PO ONE (10:45)
[2021-12-01 12:00] LABS: Calcium 8.7 mg/dL (8.5-10.1)
[2021-12-01] MEDS ORDERED: IOHEXOL 350 MG/ML 100ML IJ ONE (12:27)
[2021-12-01] MEDS ORDERED: LIDOCAINE 2%HCL (LOCAL ANESTH.) INJ 20ML MDV ONE ×2 (12:27→14:46)
[2021-12-01] MEDS ORDERED: HYDROmorphone HCL 2 MG/ML VL ONE (13:29)
[2021-12-01] MEDS ORDERED: diphenhdrAMINE HCL 50 MG/1 ML VL ONE (13:29)
[2021-12-01] MEDS ORDERED: MIDAZOLAM HCL 2MG/2ML 2ml VIAL (1mg/ml) ONE (13:30)
[2021-12-01] MEDS ORDERED: ANGIOMAX 250 MG VIAL IV ONE (13:30)
[2021-12-01] MEDS ORDERED: SODIUM CHL 0.9% 50 ML ONE (13:30)
[2021-12-01 14:18] LABS: Potassium 5.8 mmol/L (3.5-5.1)
[2021-12-01] MEDS ORDERED: EPTIFIBATIDE INJ (2MG/ML) 10ML VIAL IV ONE (15:21)
[2021-12-01] MEDS ORDERED: CLOPIDOGREL 300 MG TAB ONE (15:26)
[2021-12-01 16:05] VITALS: BP 140/63
[2021-12-01 16:20] VITALS: BP 120/58
[2021-12-01 16:35] VITALS: BP 138/97
[2021-12-01 16:50] VITALS: BP 123/56
[2021-12-01] MEDS: OXYCODONE W/ ACETAMINOPHEN 5/325MG TABLET PO PRN (20:39)
[2021-12-02] MEDS: OXYCODONE W/ ACETAMINOPHEN 5/325MG TABLET PO PRN ×3 (05:15→20:21)
[2021-12-02 09:00] VITALS: BP 93/60
[2021-12-02] MEDS: TAMSULOSIN HYDROCHLORIDE 0.4 MG CAP PO SCH ×2 (09:37→20:21)
[2021-12-02] MEDS: CLOPIDOGREL BISULFATE 75 MG TAB PO SCH (09:38)
[2021-12-02] MEDS: RIVAROXABAN 10 MG TAB PO SCH ×2 (09:38→20:21)
[2021-12-02] MEDS: amLODIPine BESYLATE 5 MG TAB PO SCH (10:00)
[2021-12-02] MEDS: dilTIAZem 120MG ER CAP PO SCH (10:00)
[2021-12-02] MEDS: METOPROLOL SUCCINATE XL 50 MG TAB PO SCH (10:00)
[2021-12-02 13:00] VITALS: BP 110/60
[2021-12-02 17:00] VITALS: BP 91/49
[2021-12-02 22:00] VITALS: BP 108/75
[2021-12-03] MEDS: OXYCODONE W/ ACETAMINOPHEN 5/325MG TABLET PO PRN ×6 (00:28→20:56)
[2021-12-03] MEDS: TEMAZEPAM 15 MG CAP PO PRN (00:28)
[2021-12-03 06:36] VITALS: BP 109/69
[2021-12-03 08:40] VITALS: BP 113/81
[2021-12-03] MEDS: CLOPIDOGREL BISULFATE 75 MG TAB PO SCH (10:00)
[2021-12-03] MEDS: METOPROLOL SUCCINATE XL 50 MG TAB PO SCH (10:00)
[2021-12-03] MEDS: RIVAROXABAN 10 MG TAB PO SCH ×2 (10:00→22:00)
[2021-12-03] MEDS: amLODIPine BESYLATE 5 MG TAB PO SCH (10:00)
[2021-12-03] MEDS: dilTIAZem 120MG ER CAP PO SCH (10:20)
[2021-12-03] MEDS: TAMSULOSIN HYDROCHLORIDE 0.4 MG CAP PO SCH ×2 (10:23→22:00)
[2021-12-03] MEDS: Glucerna Carbsteady SHAKE Vanilla 8oz PO SCH (12:30)
[2021-12-03 12:48] VITALS: BP 118/83
[2021-12-03 17:32] VITALS: BP 101/60
[2021-12-04] MEDS: OXYCODONE W/ ACETAMINOPHEN 5/325MG TABLET PO PRN ×4 (01:01→20:37)
[2021-12-04] MEDS: TEMAZEPAM 15 MG CAP PO PRN ×2 (01:31→23:41)
[2021-12-04] MEDS: Glucerna Carbsteady SHAKE Vanilla 8oz PO SCH ×2 (08:34→12:18)
[2021-12-04] MEDS: dilTIAZem 120MG ER CAP PO SCH (08:59)
[2021-12-04] MEDS: TAMSULOSIN HYDROCHLORIDE 0.4 MG CAP PO SCH ×2 (09:00→20:37)
[2021-12-04] MEDS: amLODIPine BESYLATE 5 MG TAB PO SCH (09:01)
[2021-12-04] MEDS: RIVAROXABAN 10 MG TAB PO SCH ×2 (09:03→20:47)
[2021-12-04] MEDS: CLOPIDOGREL BISULFATE 75 MG TAB PO SCH (09:03)
[2021-12-04] MEDS: METOPROLOL SUCCINATE XL 50 MG TAB PO SCH (09:03)
[2021-12-04 09:49] VITALS: BP 100/64
[2021-12-04 14:00] LABS: BUN/Creatinine Ratio 8.5; Calcium 8.8 mg/dL (8.5-10.1); Potassium 5.2 mmol/L (3.5-5.1)
[2021-12-04 14:24] VITALS: BP 108/69
[2021-12-04] MEDS ORDERED: SODIUM CHL 0.9% 1000 ML BAG XX ONE (15:30)
[2021-12-04 17:08] VITALS: BP 107/66
[2021-12-04 21:46] VITALS: BP 103/57
[2021-12-05] MEDS: OXYCODONE W/ ACETAMINOPHEN 5/325MG TABLET PO PRN ×2 (04:27→12:33)
[2021-12-05 05:00] VITALS: BP 116/73
[2021-12-05] MEDS: Glucerna Carbsteady SHAKE Vanilla 8oz PO SCH ×3 (08:00→12:00)
[2021-12-05 09:00] VITALS: BP 119/74
[2021-12-05] MEDS: dilTIAZem 120MG ER CAP PO SCH (09:48)
[2021-12-05] MEDS: TAMSULOSIN HYDROCHLORIDE 0.4 MG CAP PO SCH (09:48)
[2021-12-05] MEDS: CLOPIDOGREL BISULFATE 75 MG TAB PO SCH (09:49)
[2021-12-05] MEDS: amLODIPine BESYLATE 5 MG TAB PO SCH (09:49)
[2021-12-05] MEDS: RIVAROXABAN 10 MG TAB PO SCH (09:49)
[2021-12-05] MEDS: METOPROLOL SUCCINATE XL 50 MG TAB PO SCH (09:49)
[2021-12-05 12:10] VITALS: BP 119/74
[2021-12-05 17:00] VITALS: BP 118/77
== END 2021-12-05 18:34 | disposition home or self-care (01) | DRG 252 ==
LOC: EDBD 00:45 → ER 00:45 → TELE 13:38 → TELE-WESTW 20:35
PROVIDERS: ADMIT Internal Medicine; ATTEND Family Medicine
PROC: 0W9G3ZZ Drainage of Peritoneal Cavity, Percutaneous Approach (ICD-10-PCS; 2021-11-27)
PROC: 5A1D70Z Performance of Urinary Filtration, Intermittent, Less than 6 Hours Per Day (ICD-10-PCS; 2021-11-27)
PROC: 047S3ZZ Dilation of Left Posterior Tibial Artery, Percutaneous Approach (ICD-10-PCS; principal; 2021-12-01)
PROC: 047U3ZZ Dilation of Left Peroneal Artery, Percutaneous Approach (ICD-10-PCS; 2021-12-01)
PROC: 5A1D70Z Performance of Urinary Filtration, Intermittent, Less than 6 Hours Per Day (ICD-10-PCS; 2021-12-01)
PROC: 5A1D70Z Performance of Urinary Filtration, Intermittent, Less than 6 Hours Per Day (ICD-10-PCS; 2021-12-04)
DX: E11.52 Type 2 diabetes mellitus with diabetic peripheral angiopathy with gangrene (principal); N18.6 End stage renal disease; E43 Unspecified severe protein-calorie malnutrition; R18.8 Other ascites; I12.0 Hypertensive chronic kidney disease with stage 5 chronic kidney disease or end stage renal disease; J90 Pleural effusion, not elsewhere classified; L03.116 Cellulitis of left lower limb; D63.1 Anemia in chronic kidney disease; E83.41 Hypermagnesemia; K21.9 Gastro-esophageal reflux disease without esophagitis; R77.8 Other specified abnormalities of plasma proteins; I25.10 Atherosclerotic heart disease of native coronary artery without angina pectoris; E83.39 Other disorders of phosphorus metabolism; Z20.822 Contact with and (suspected) exposure to COVID-19; E11.22 Type 2 diabetes mellitus with diabetic chronic kidney disease; E87.5 Hyperkalemia; E87.70 Fluid overload, unspecified; Z68.31 Body mass index [BMI] 31.0-31.9, adult; Z99.2 Dependence on renal dialysis; Z79.899 Other long term (current) drug therapy; Z80.0 Family history of malignant neoplasm of digestive organs; Z89.511 Acquired absence of right leg below knee; Z91.040 Latex allergy status; Z91.010 Allergy to peanuts; Z91.018 Allergy to other foods; Z90.49 Acquired absence of other specified parts of digestive tract
CPT/HCPCS: 36415; 37228; 71045; 73700; 74176; 76700; 76942; 80048; 80053; 83690; 83735; 84132; 84484; 85025; 85610; 87081; 87205; 87340; 87426; 89051; 90935; 93005; 93926; 94640; 96365; 96366; 96372; 96375; 99152; 99153; 99291; C1887; G0378; J1815; J2250; J2405; P9047

== ENCOUNTER 2021-12-15 08:50 | Inpatient (IN) | payer MEDICARE, MEDICAID ==
[~2021-12-15] VITALS: Ht 180.3 cm; Wt 89.0 kg
[~2021-12-15 08:50] MED LIST changes: +FENT12DI TD
[2021-12-15 10:22] LABS: Basophils # (auto) 0.1 10 ^3/uL (0-0.2); Basophils % (auto) 1.7 % (0.0-2.0); Eosinophils # (auto) 0.2 10 ^3/uL (0-0.8); Eosinophils % (auto) 2.4 % (0.0-7.0); Hematocrit 26.5 % (41.0-53.0); Hemoglobin 8.5 g/dL (13.5-17.5); Lymphocytes # (auto) 0.9 10 ^3/uL (0.4-5.4); Lymphocytes % (auto) 10.2 % (10.0-50.0); Mean Corpuscular Hemoglobin 25.1 pg (28.0-32.0); Mean Corpuscular Volume 78.3 fL (80.0-100.0); Monocytes # (auto) 0.7 10 ^3/uL (0-1.3); Monocytes % (auto) 8.1 % (0.0-12.0); Neutrophils # (auto) 6.7 10 ^3/uL (1.6-8.6); Neutrophils % (auto) 77.6 % (37.0-80.0); Nucleated Red Blood Cells % 0.1 %; Red Blood Cells 3.39 10^6/uL (4.5-5.90); White Blood Cell 8.6 10^3/uL (4.4-10.8)
[2021-12-15 10:40] LABS: Albumin 1.9 g/dL (3.4-5.0); Anion Gap 10 (5-15); Carbon Dioxide 29 mmol/L (21-32); Chloride 100 mmol/L (98-107); Glucose 93 mg/dL (74-106); Sodium 139 mmol/L (136-145)
[2021-12-15 10:43] LABS: Alanine Aminotransferase < 6 U/L (16-61); Alkaline Phosphatase 71 U/L (45-117); BUN/Creatinine Ratio 10.3; Bilirubin, Total 0.3 mg/dL (0.2-1.0); GFR African American 8 mL/min; GFR Non-African American 6 mL/min
[2021-12-15 10:48] LABS: Aspartate Aminotransferase 13 U/L (15-37)
[2021-12-15 11:10] LABS: Blood Urea Nitrogen 96 mg/dL (7-18); Potassium 6.3 mmol/L (3.5-5.1)
[2021-12-15] MEDS ORDERED: CALCIUM GLUC 1,000mg/50ml-NS 50 ML IV ONE ×2 (11:30→12:30)
[2021-12-15] MEDS ORDERED: DEXTROSE (50%) 50ML SYRG IV ONE ×2 (11:30→12:30)
[2021-12-15] MEDS ORDERED: ALBUTEROL SULF 2.5 MG/0.5ML(0.5%) NEB SOLN NEB ONE ×2 (11:30→12:30)
[2021-12-15] MEDS ORDERED: FUROSEMIDE 20 MG/2 ML VIAL IV ONE ×2 (11:30→12:30)
[2021-12-15] MEDS ORDERED: SODIUM ZIRCONIUM CYCL 10 GM PAK PO ONE ×2 (11:30→12:30)
[2021-12-15] MEDS ORDERED: SODIUM BICARBONATE 8.4% INJ 50ML SYRINGE IV ONE ×2 (11:30→12:30)
[2021-12-15] MEDS ORDERED: InsuLIN REG 1unit/0.01ml Soln (100units/ml) IV ONE ×2 (11:30→12:30)
[2021-12-15] MEDS ORDERED: DOCUSATE SOD 100 MG CAP PO PRN ×2 (12:15→12:30)
[2021-12-15] MEDS ORDERED: MORPHINE SULFATE INJECTION 2 MG/ML SYRG IV PRN (12:15)
[2021-12-15] MEDS ORDERED: ACETAMINOPHEN 325 MG TAB PO PRN (12:15)
[2021-12-15] MEDS ORDERED: NITROGLYCERIN 0.4 MG SL TAB SL PRN (12:15)
[2021-12-15 12:22] LABS: INR 1.05 (0.9-1.15); Partial Thromboplastin Time 30.8 sec (23.6-33.0)
[2021-12-15] MEDS ORDERED: PIPERACILLIN-TAZOB 3.375GM 100 ML IV SCH (14:00)
[2021-12-15] MEDS ORDERED: ALBUMIN 25% 200 ML IV ONE (16:01)
[2021-12-15] MEDS ORDERED: ALBUMIN 25% 50 ML IV ONE ×5 (16:15→17:15)
[2021-12-15 20:45] VITALS: BP 120/44
[2021-12-15] MEDS: TAMSULOSIN HYDROCHLORIDE 0.4 MG CAP PO SCH (23:06)
[2021-12-15] MEDS: MORPHINE SULFATE 4 MG/ML SYR/VIAL IV PRN (23:07)
[2021-12-16 05:00] VITALS: BP 130/43
[2021-12-16] MEDS: MORPHINE SULFATE 4 MG/ML SYR/VIAL IV PRN ×4 (05:45→21:53)
[2021-12-16] MEDS ORDERED: SODIUM CHL 0.9% 1000 ML BAG XX ONE (07:00)
[2021-12-16 08:42] LABS: Basophils # (auto) 0.1 10 ^3/uL (0-0.2); Basophils % (auto) 1.4 % (0.0-2.0); Eosinophils # (auto) 0.1 10 ^3/uL (0-0.8); Hematocrit 25.4 % (41.0-53.0); Lymphocytes # (auto) 0.7 10 ^3/uL (0.4-5.4); Lymphocytes % (auto) 8.6 % (10.0-50.0); Mean Corpuscular Hemoglobin 24.9 pg (28.0-32.0); Mean Corpuscular Hgb Conc. 31.6 g/dL (32.0-36.0); Mean Corpuscular Volume 78.9 fL (80.0-100.0); Monocytes # (auto) 0.6 10 ^3/uL (0-1.3); Monocytes % (auto) 7.7 % (0.0-12.0); Neutrophils # (auto) 6.5 10 ^3/uL (1.6-8.6); Neutrophils % (auto) 81.3 % (37.0-80.0); Nucleated Red Blood Cells % 0.1 %; Red Blood Cells 3.21 10^6/uL (4.5-5.90); Red Cell Distribution Width 22.4 % (11.8-14.3)
[2021-12-16 09:00] VITALS: BP 136/83
[2021-12-16 09:09] LABS: Albumin 2.1 g/dL (3.4-5.0); BUN/Creatinine Ratio 10.4; Bilirubin, Total 0.4 mg/dL (0.2-1.0); Calcium 9.6 mg/dL (8.5-10.1); Total Protein 5.1 g/dL (6.4-8.2)
[2021-12-16 09:45] LABS: Potassium 6.1 mmol/L (3.5-5.1)
[2021-12-16] MEDS ORDERED: PATIENTS OWN MEDICATION (Metoprolol Succinate (Metoprolol Succinate Er) 1 TAB) PO SCH (10:00)
[2021-12-16] MEDS ORDERED: PATIENTS OWN MEDICATION (Sevelamer Carbonate (Renvela) 800 MG) PO SCH (10:00)
[2021-12-16] MEDS: B-COMPLEX W/ C & FOLIC ACID(NEPHROVITE TAB) PO SCH (10:17)
[2021-12-16] MEDS: TAMSULOSIN HYDROCHLORIDE 0.4 MG CAP PO SCH ×2 (10:17→23:40)
[2021-12-16] MEDS: METOPROLOL SUCCINATE XL 50 MG TAB PO SCH (10:17)
[2021-12-16] MEDS: PANTOPRAZOLE 40 MG TAB PO SCH (10:17)
[2021-12-16] MEDS: ASCORBIC ACID 500 MG TAB PO SCH (10:18)
[2021-12-16] MEDS: SEVELAMER 800 MG TAB PO SCH (10:18)
[2021-12-16] MEDS ORDERED: DEXTROSE (50%) 50ML SYRG IV ONE (11:45)
[2021-12-16] MEDS ORDERED: ALBUTEROL SULF 2.5 MG/0.5ML(0.5%) NEB SOLN NEB ONE (11:45)
[2021-12-16] MEDS ORDERED: SODIUM BICARBONATE 8.4% INJ 50ML SYRINGE IV ONE (11:45)
[2021-12-16] MEDS ORDERED: SODIUM ZIRCONIUM CYCL 10 GM PAK PO ONE (11:45)
[2021-12-16] MEDS ORDERED: InsuLIN REG 1unit/0.01ml Soln (100units/ml) IV ONE (11:45)
[2021-12-16] MEDS ORDERED: CALCIUM GLUC 1,000mg/50ml-NS 50 ML IV ONE (11:45)
[2021-12-16 13:00] VITALS: BP 109/59
[2021-12-16 16:38] VITALS: BP 110/54
[2021-12-16] MEDS: HYDROcodone-ACET 5/325MG TAB PO PRN (20:36)
[2021-12-16] MEDS ORDERED: EPOETIN ALFA-EPBX 10,000 UNIT/1ML VIAL SC ONE (21:00)
[2021-12-16 22:00] VITALS: BP 95/46
[2021-12-17] MEDS: HYDROcodone-ACET 5/325MG TAB PO PRN ×2 (00:32→16:24)
[2021-12-17] MEDS: MORPHINE SULFATE 4 MG/ML SYR/VIAL IV PRN ×2 (02:04→09:09)
[2021-12-17] MEDS: Glucerna Carbsteady SHAKE Chocolate 8oz PO SCH ×2 (03:37→09:14)
[2021-12-17 05:00] VITALS: BP 112/68
[2021-12-17 07:16] VITALS: BP 112/68
[2021-12-17 09:00] VITALS: BP 138/49
[2021-12-17] MEDS: TAMSULOSIN HYDROCHLORIDE 0.4 MG CAP PO SCH (09:08)
[2021-12-17] MEDS: PANTOPRAZOLE 40 MG TAB PO SCH (09:08)
[2021-12-17] MEDS: SEVELAMER 800 MG TAB PO SCH (09:08)
[2021-12-17] MEDS: B-COMPLEX W/ C & FOLIC ACID(NEPHROVITE TAB) PO SCH (09:08)
[2021-12-17] MEDS: ASCORBIC ACID 500 MG TAB PO SCH (09:08)
[2021-12-17] MEDS: METOPROLOL SUCCINATE XL 50 MG TAB PO SCH (09:08)
[2021-12-17 13:00] VITALS: BP 123/85
[2021-12-17 17:00] VITALS: BP 125/58
== END 2021-12-17 17:40 | DRG 640 ==
LOC: EDBD 08:50 → ER 08:50 → TELE 12:12 → TELE-CENTR 22:15
PROVIDERS: ADMIT Nurse Practitioner; ATTEND Nurse Practitioner
PROC: 0W9G3ZZ Drainage of Peritoneal Cavity, Percutaneous Approach (ICD-10-PCS; 2021-12-15)
PROC: 5A1D70Z Performance of Urinary Filtration, Intermittent, Less than 6 Hours Per Day (ICD-10-PCS; principal; 2021-12-16)
DX: E87.5 Hyperkalemia (principal); E43 Unspecified severe protein-calorie malnutrition; N18.6 End stage renal disease; R18.8 Other ascites; M86.8X7 Other osteomyelitis, ankle and foot; I12.0 Hypertensive chronic kidney disease with stage 5 chronic kidney disease or end stage renal disease; I25.10 Atherosclerotic heart disease of native coronary artery without angina pectoris; N50.89 Other specified disorders of the male genital organs; D63.8 Anemia in other chronic diseases classified elsewhere; E11.22 Type 2 diabetes mellitus with diabetic chronic kidney disease; Z20.822 Contact with and (suspected) exposure to COVID-19; E11.51 Type 2 diabetes mellitus with diabetic peripheral angiopathy without gangrene; E11.69 Type 2 diabetes mellitus with other specified complication; E87.70 Fluid overload, unspecified; Z79.899 Other long term (current) drug therapy; Z89.511 Acquired absence of right leg below knee; Z80.0 Family history of malignant neoplasm of digestive organs; Z99.2 Dependence on renal dialysis; Z91.15 Patient's noncompliance with renal dialysis; Z91.19 Patient's noncompliance with other medical treatment and regimen; Z91.040 Latex allergy status; Z91.018 Allergy to other foods; Z91.010 Allergy to peanuts; Z90.49 Acquired absence of other specified parts of digestive tract; Z68.27 Body mass index [BMI] 27.0-27.9, adult
CPT/HCPCS: 36415; 49083; 73620; 76705; 76870; 76942; 80053; 84132; 85025; 85610; 85730; 87426; 90935; 94640; 96365; 96375; 99291; G0378; J1815; J2543

== ENCOUNTER 2022-01-05 09:11 | Inpatient (IN) | payer MEDICARE, MEDICAID ==
[~2022-01-05] VITALS: Ht 175.3 cm; Wt 92.1 kg
[2022-01-05 10:44] LABS: Basophils # (auto) 0.2 10 ^3/uL (0-0.2); Lymphocytes # (auto) 1.3 10 ^3/uL (0.4-5.4)
[2022-01-05 10:48] LABS: Basophils % (auto) 1.8 % (0.0-2.0); Eosinophils # (auto) 0.1 10 ^3/uL (0-0.8); Eosinophils % (auto) 1.6 % (0.0-7.0); Lymphocytes % (auto) 14.4 % (10.0-50.0); Mean Corpuscular Hgb Conc. 33.3 g/dL (32.0-36.0); Mean Corpuscular Volume 81.2 fL (80.0-100.0); Monocytes # (auto) 0.8 10 ^3/uL (0-1.3); Monocytes % (auto) 8.9 % (0.0-12.0); Neutrophils # (auto) 6.5 10 ^3/uL (1.6-8.6); Neutrophils % (auto) 73.3 % (37.0-80.0); Red Blood Cells 2.22 10^6/uL (4.5-5.90); Red Cell Distribution Width 24.1 % (11.8-14.3); White Blood Cell 8.9 10^3/uL (4.4-10.8)
[2022-01-05 11:04] LABS: Albumin 2.1 g/dL (3.4-5.0); Calcium 10.2 mg/dL (8.5-10.1)
[2022-01-05 11:07] LABS: BUN/Creatinine Ratio 11.8; Bilirubin, Total 0.5 mg/dL (0.2-1.0); Total Protein 6.1 g/dL (6.4-8.2)
[2022-01-05 11:21] LABS: Potassium 5.8 mmol/L (3.5-5.1)
[2022-01-05] MEDS ORDERED: SODIUM ZIRCONIUM CYCL 10 GM PAK PO ONE (12:00)
[2022-01-05] MEDS ORDERED: DEXTROSE (50%) 50ML SYRG IV ONE (12:00)
[2022-01-05] MEDS ORDERED: ALBUTEROL SULF 2.5 MG/0.5ML(0.5%) NEB SOLN NEB ONE (12:00)
[2022-01-05] MEDS ORDERED: InsuLIN REG 1unit/0.01ml Soln (100units/ml) IV ONE (12:00)
[2022-01-05] MEDS ORDERED: FUROSEMIDE 20 MG/2 ML VIAL IV ONE (12:00)
[2022-01-05] MEDS ORDERED: CALCIUM GLUC 1,000mg/50ml-NS 50 ML IV ONE (12:00)
[2022-01-05] MEDS ORDERED: SODIUM BICARBONATE 8.4% INJ 50ML SYRINGE IV ONE (12:00)
[2022-01-05] MEDS ORDERED: HYDROcodone-ACET 5/325MG TAB PO PRN (13:45)
[2022-01-05] MEDS ORDERED: NITROGLYCERIN 0.4 MG SL TAB SL PRN (13:45)
[2022-01-05] MEDS ORDERED: ONDANSETRON HCL 4 MG/2 ML VIAL IV PRN (13:45)
[2022-01-05] MEDS ORDERED: LACTULOSE 20Gm/30ML SOLN PO PRN (13:45)
[2022-01-05] MEDS ORDERED: ACETAMINOPHEN 325 MG TAB PO PRN (13:45)
[2022-01-05] MEDS ORDERED: MORPHINE SULFATE INJECTION 2 MG/ML SYRG IV PRN (13:45)
[2022-01-05] MEDS ORDERED: DOCUSATE SOD 100 MG CAP PO PRN ×2 (13:45→14:00)
[2022-01-05] MEDS ORDERED: DEXTROSE 10% 1,000 ML IV ONE (13:45)
[2022-01-05 14:47] LABS: INR 1.04 (0.9-1.15); Partial Thromboplastin Time 32.6 sec (23.6-33.0)
[2022-01-05 14:49] VITALS: BP 111/73
[2022-01-05 14:54] VITALS: BP 114/74
[2022-01-05 14:59] VITALS: BP 113/74
[2022-01-05] MEDS ORDERED: DEXTROSE 10% 250 ML IV ONE (16:15)
[2022-01-05] MEDS: TAMSULOSIN HYDROCHLORIDE 0.4 MG CAP PO SCH (21:56)
[2022-01-05 22:00] VITALS: BP 128/79
[2022-01-05 23:08] LABS: Hematocrit 34.4 % (41.0-53.0); Hemoglobin 10.8 g/dL (13.5-17.5)
[2022-01-06 05:00] VITALS: BP 123/76
[2022-01-06 09:00] VITALS: BP 98/68
[2022-01-06] MEDS ORDERED: SODIUM CHL 0.9% 1000 ML BAG XX ONE (09:15)
[2022-01-06] MEDS: METOPROLOL SUCCINATE XL 50 MG TAB PO SCH (10:00)
[2022-01-06] MEDS: amLODIPine BESYLATE 5 MG TAB PO SCH (10:00)
[2022-01-06] MEDS: B-COMPLEX W/ C & FOLIC ACID(NEPHROVITE TAB) PO SCH (10:00)
[2022-01-06] MEDS ORDERED: PATIENTS OWN MEDICATION (Metoprolol Succinate (Metoprolol Succinate Er) 1 TAB) PO SCH (10:00)
[2022-01-06] MEDS: SEVELAMER 800 MG TAB PO SCH (10:50)
[2022-01-06] MEDS: PANTOPRAZOLE 40 MG TAB PO SCH (10:51)
[2022-01-06] MEDS: dilTIAZem 120MG ER CAP PO SCH (10:53)
[2022-01-06] MEDS: TAMSULOSIN HYDROCHLORIDE 0.4 MG CAP PO SCH ×2 (10:53→22:09)
[2022-01-06 12:01] LABS: Basophils # (auto) 0.1 10 ^3/uL (0-0.2); Eosinophils # (auto) 0.2 10 ^3/uL (0-0.8); Eosinophils % (auto) 3.5 % (0.0-7.0); Lymphocytes # (auto) 0.7 10 ^3/uL (0.4-5.4); Lymphocytes % (auto) 11.2 % (10.0-50.0); Neutrophils # (auto) 4.5 10 ^3/uL (1.6-8.6)
[2022-01-06 12:03] LABS: Basophils % (auto) 1.9 % (0.0-2.0); Hematocrit 30.1 % (41.0-53.0); Hemoglobin 9.8 g/dL (13.5-17.5); Mean Corpuscular Hemoglobin 26.1 pg (28.0-32.0); Mean Corpuscular Hgb Conc. 32.7 g/dL (32.0-36.0); Mean Corpuscular Volume 79.9 fL (80.0-100.0); Monocytes # (auto) 0.4 10 ^3/uL (0-1.3); Monocytes % (auto) 7.2 % (0.0-12.0); Neutrophils % (auto) 76.2 % (37.0-80.0); Nucleated Red Blood Cells % 0.1 %; Red Blood Cells 3.76 10^6/uL (4.5-5.90); White Blood Cell 5.9 10^3/uL (4.4-10.8)
[2022-01-06 12:04] LABS: Red Cell Distribution Width 22.7 % (11.8-14.3)
[2022-01-06 12:21] LABS: Alanine Aminotransferase < 6 U/L (16-61); Albumin 1.9 g/dL (3.4-5.0); Anion Gap 7 (5-15); Aspartate Aminotransferase 13 U/L (15-37); BUN/Creatinine Ratio 11.4; Calcium 9.1 mg/dL (8.5-10.1); Carbon Dioxide 29 mmol/L (21-32); Chloride 101 mmol/L (98-107); GFR African American 10 mL/min; GFR Non-African American 8 mL/min; Glucose 80 mg/dL (74-106); Potassium 5.3 mmol/L (3.5-5.1); Sodium 137 mmol/L (136-145)
[2022-01-06 12:23] LABS: Alkaline Phosphatase 69 U/L (45-117); Bilirubin, Total 0.4 mg/dL (0.2-1.0); Total Protein 5.7 g/dL (6.4-8.2)
[2022-01-06 13:00] VITALS: BP 119/63
[2022-01-06 13:02] LABS: Blood Urea Nitrogen 87 mg/dL (7-18)
[2022-01-06 17:00] VITALS: BP 93/64
[2022-01-06] MEDS ORDERED: EPOETIN ALFA-EPBX 4,000 UNIT/ML VIAL SC ONE (21:00)
[2022-01-06 22:00] VITALS: BP 104/81
[2022-01-07 05:00] VITALS: BP 112/80
[2022-01-07 09:14] VITALS: BP 107/74
[2022-01-07] MEDS: B-COMPLEX W/ C & FOLIC ACID(NEPHROVITE TAB) PO SCH (10:00)
[2022-01-07] MEDS: TAMSULOSIN HYDROCHLORIDE 0.4 MG CAP PO SCH (10:00)
[2022-01-07] MEDS: dilTIAZem 120MG ER CAP PO SCH (10:00)
[2022-01-07] MEDS: PANTOPRAZOLE 40 MG TAB PO SCH (10:00)
[2022-01-07] MEDS: SEVELAMER 800 MG TAB PO SCH (10:00)
[2022-01-07] MEDS: METOPROLOL SUCCINATE XL 50 MG TAB PO SCH (10:00)
[2022-01-07] MEDS: amLODIPine BESYLATE 5 MG TAB PO SCH (10:00)
[2022-01-07 13:00] VITALS: BP 108/71
[2022-01-07 16:35] VITALS: BP 106/71
[2022-01-07 17:12] VITALS: BP 106/71
[2022-01-08] MEDS ORDERED: SODIUM CHL 0.9% 1000 ML BAG XX ONE (07:00)
[2022-01-08] MEDS ORDERED: EPOETIN ALFA-EPBX 4,000 UNIT/ML VIAL SC ONE (21:00)
== END 2022-01-07 20:40 | DRG 640 ==
LOC: ER 09:11 → EDBD 09:11 → TELE 13:31 → TELE-CENTR 17:07
PROVIDERS: ADMIT Nurse Practitioner; ATTEND Nurse Practitioner
PROC: 30233N1 Transfusion of Nonautologous Red Blood Cells into Peripheral Vein, Percutaneous Approach (ICD-10-PCS; principal; 2022-01-05)
PROC: 5A1D70Z Performance of Urinary Filtration, Intermittent, Less than 6 Hours Per Day (ICD-10-PCS; 2022-01-06)
PROC: 0W9G3ZZ Drainage of Peritoneal Cavity, Percutaneous Approach (ICD-10-PCS; 2022-01-07)
DX: E87.5 Hyperkalemia (principal); N18.6 End stage renal disease; E43 Unspecified severe protein-calorie malnutrition; R18.8 Other ascites; J90 Pleural effusion, not elsewhere classified; I12.0 Hypertensive chronic kidney disease with stage 5 chronic kidney disease or end stage renal disease; N25.81 Secondary hyperparathyroidism of renal origin; E11.649 Type 2 diabetes mellitus with hypoglycemia without coma; K59.00 Constipation, unspecified; D63.1 Anemia in chronic kidney disease; E11.22 Type 2 diabetes mellitus with diabetic chronic kidney disease; E11.51 Type 2 diabetes mellitus with diabetic peripheral angiopathy without gangrene; F17.210 Nicotine dependence, cigarettes, uncomplicated; I25.10 Atherosclerotic heart disease of native coronary artery without angina pectoris; Z91.040 Latex allergy status; Z91.010 Allergy to peanuts; Z80.0 Family history of malignant neoplasm of digestive organs; Z68.30 Body mass index [BMI] 30.0-30.9, adult; Z99.2 Dependence on renal dialysis; Z89.519 Acquired absence of unspecified leg below knee; Z91.15 Patient's noncompliance with renal dialysis; Z91.19 Patient's noncompliance with other medical treatment and regimen
CPT/HCPCS: 36415; 36430; 49083; 74176; 76705; 76942; 80053; 82962; 83690; 84132; 85014; 85018; 85025; 85610; 85730; 86850; 86900; 86901; 86920; 87081; 87426; 90935; 93005; 96361; 96365; 96375; 99291; G0378

== ENCOUNTER 2022-01-12 16:40 | Inpatient (IN) | payer MEDICARE, MEDICAID ==
[~2022-01-12] VITALS: Ht 180.3 cm; Wt 79.4 kg
[2022-01-12 22:05] LABS: Albumin 1.9 g/dL (3.4-5.0); Anion Gap 10 (5-15); Calcium 9.8 mg/dL (8.5-10.1); Carbon Dioxide 30 mmol/L (21-32); Chloride 99 mmol/L (98-107); GFR African American 7 mL/min; GFR Non-African American 6 mL/min; Glucose 95 mg/dL (74-106); Sodium 139 mmol/L (136-145)
[2022-01-12 22:08] LABS: Alanine Aminotransferase 7 U/L (16-61); Alkaline Phosphatase 68 U/L (45-117); Aspartate Aminotransferase 14 U/L (15-37); Bilirubin, Total 0.4 mg/dL (0.2-1.0); Total Protein 6.1 g/dL (6.4-8.2)
[2022-01-12] MEDS ORDERED: OXYCODONE W/ ACETAMINOPHEN 5/325MG TABLET PO ONE (22:45)
[2022-01-12 22:46] LABS: Basophils # (auto) 0.2 10 ^3/uL (0-0.2); Basophils % (auto) 3.4 % (0.0-2.0); Eosinophils # (auto) 0.1 10 ^3/uL (0-0.8); Eosinophils % (auto) 2.1 % (0.0-7.0); Hematocrit 34.2 % (41.0-53.0); Hemoglobin 11.1 g/dL (13.5-17.5); Lymphocytes # (auto) 0.3 10 ^3/uL (0.4-5.4); Lymphocytes % (auto) 4.5 % (10.0-50.0); Mean Corpuscular Hemoglobin 26.3 pg (28.0-32.0); Mean Corpuscular Hgb Conc. 32.4 g/dL (32.0-36.0); Mean Corpuscular Volume 81.3 fL (80.0-100.0); Monocytes # (auto) 0.5 10 ^3/uL (0-1.3); Monocytes % (auto) 7.3 % (0.0-12.0); Neutrophils # (auto) 5.4 10 ^3/uL (1.6-8.6); Neutrophils % (auto) 82.7 % (37.0-80.0); White Blood Cell 6.6 10^3/uL (4.4-10.8)
[2022-01-12 22:53] LABS: Red Cell Distribution Width 21.8 % (11.8-14.3)
[2022-01-12 22:57] LABS: Blood Urea Nitrogen 122 mg/dL (7-18); Potassium 6.3 mmol/L (3.5-5.1)
[2022-01-12] MEDS ORDERED: SODIUM BICARBONATE 8.4% INJ 50ML SYRINGE IV ONE (23:00)
[2022-01-12] MEDS ORDERED: CALCIUM GLUC 1,000mg/50ml-NS 50 ML IV ONE (23:00)
[2022-01-12] MEDS ORDERED: ALBUTEROL SULF 2.5 MG/0.5ML(0.5%) NEB SOLN NEB ONE (23:00)
[2022-01-12] MEDS ORDERED: InsuLIN REG 1unit/0.01ml Soln (100units/ml) IV ONE (23:00)
[2022-01-12] MEDS ORDERED: DEXTROSE (50%) 50ML SYRG IV ONE (23:00)
[2022-01-12] MEDS ORDERED: ALBUTEROL SULF 2.5 MG/0.5ML(0.5%) NEB SOLN ONE (23:01)
[2022-01-13] MEDS ORDERED: MORPHINE SULFATE INJECTION 2 MG/ML SYRG IV PRN (01:45)
[2022-01-13] MEDS ORDERED: NITROGLYCERIN 0.4 MG SL TAB SL PRN (01:45)
[2022-01-13] MEDS ORDERED: SODIUM BICARBONATE 8.4 % INJ 50ML VIAL IV ONE (03:04)
[2022-01-13] MEDS: SODIUM ZIRCONIUM CYCL 10 GM PAK PO SCH ×4 (03:21→22:35)
[2022-01-13 04:30] VITALS: BP 132/79
[2022-01-13 05:05] VITALS: BP 132/79
[2022-01-13] MEDS ORDERED: PERCOT PO (05:36)
[2022-01-13] MEDS ORDERED: MID10T GT (05:36)
[2022-01-13] MEDS: OXYCODONE W/ ACETAMINOPHEN 5/325MG TABLET PO PRN ×3 (05:48→18:59)
[2022-01-13] MEDS ORDERED: SODIUM ZIRCONIUM CYCL 10 GM PAK PO SCH (06:00)
[2022-01-13 09:00] VITALS: BP 130/83
[2022-01-13 12:04] LABS: Basophils # (auto) 0.1 10 ^3/uL (0-0.2); Eosinophils # (auto) 0.1 10 ^3/uL (0-0.8); Lymphocytes # (auto) 0.6 10 ^3/uL (0.4-5.4); Lymphocytes % (auto) 9.8 % (10.0-50.0); Monocytes # (auto) 0.5 10 ^3/uL (0-1.3); Neutrophils # (auto) 4.9 10 ^3/uL (1.6-8.6); White Blood Cell 6.2 10^3/uL (4.4-10.8)
[2022-01-13 12:06] LABS: Basophils % (auto) 1.4 % (0.0-2.0); Eosinophils % (auto) 1.9 % (0.0-7.0); Hematocrit 28.5 % (41.0-53.0); Hemoglobin 9.4 g/dL (13.5-17.5); Mean Corpuscular Hemoglobin 26.8 pg (28.0-32.0); Mean Corpuscular Hgb Conc. 33.1 g/dL (32.0-36.0); Neutrophils % (auto) 78.9 % (37.0-80.0); Nucleated Red Blood Cells % 0.1 %; Red Blood Cells 3.52 10^6/uL (4.5-5.90); Red Cell Distribution Width 21.6 % (11.8-14.3)
[2022-01-13 12:24] LABS: BUN/Creatinine Ratio 12.4; Calcium 9.6 mg/dL (8.5-10.1); Potassium 4.6 mmol/L (3.5-5.1)
[2022-01-13 12:43] VITALS: BP 134/86
[2022-01-13] MEDS ORDERED: DOCUSATE SOD 100 MG CAP PO PRN (16:00)
[2022-01-13 16:45] VITALS: BP 143/89
[2022-01-13 19:43] LABS: INR 1.03 (0.9-1.15); Partial Thromboplastin Time 30.8 sec (23.6-33.0)
[2022-01-13 22:00] VITALS: BP 140/89
[2022-01-13] MEDS: RIVAROXABAN 10 MG TAB PO SCH (22:00)
[2022-01-13] MEDS: TAMSULOSIN HYDROCHLORIDE 0.4 MG CAP PO SCH (22:30)
[2022-01-13] MEDS: TEMAZEPAM 15 MG CAP PO PRN (22:36)
[2022-01-14 05:00] VITALS: BP 135/77
[2022-01-14] MEDS: OXYCODONE W/ ACETAMINOPHEN 5/325MG TABLET PO PRN ×3 (05:48→22:59)
[2022-01-14 09:00] VITALS: BP 135/74
[2022-01-14] MEDS ORDERED: dilTIAZem 120MG ER CAP PO SCH (10:00)
[2022-01-14] MEDS: amLODIPine BESYLATE 5 MG TAB PO SCH (10:03)
[2022-01-14] MEDS: TAMSULOSIN HYDROCHLORIDE 0.4 MG CAP PO SCH ×2 (10:03→22:32)
[2022-01-14] MEDS: PANTOPRAZOLE 40 MG TAB PO SCH (10:04)
[2022-01-14] MEDS: SEVELAMER 800 MG TAB PO SCH (10:04)
[2022-01-14] MEDS: RIVAROXABAN 10 MG TAB PO SCH ×2 (10:05→22:00)
[2022-01-14] MEDS: METOPROLOL SUCCINATE XL 50 MG TAB PO SCH (10:05)
[2022-01-14 13:00] VITALS: BP 123/67
[2022-01-14 17:00] VITALS: BP 140/85
[2022-01-14] MEDS: TEMAZEPAM 15 MG CAP PO PRN (22:32)
[2022-01-15 05:00] VITALS: BP 124/72
[2022-01-15] MEDS: OXYCODONE W/ ACETAMINOPHEN 5/325MG TABLET PO PRN ×3 (07:00→21:32)
[2022-01-15] MEDS ORDERED: SODIUM CHL 0.9% 1000 ML BAG XX ONE (07:00)
[2022-01-15 09:00] VITALS: BP 119/70
[2022-01-15] MEDS ORDERED: ALPRAZolam 0.5 MG TAB PO PRN (10:15)
[2022-01-15 13:00] VITALS: BP 107/73
[2022-01-15] MEDS: amLODIPine BESYLATE 5 MG TAB PO SCH (13:03)
[2022-01-15] MEDS: PANTOPRAZOLE 40 MG TAB PO SCH (13:03)
[2022-01-15] MEDS: SEVELAMER 800 MG TAB PO SCH (13:04)
[2022-01-15] MEDS: METOPROLOL SUCCINATE XL 50 MG TAB PO SCH (13:04)
[2022-01-15] MEDS: RIVAROXABAN 10 MG TAB PO SCH ×3 (13:05→21:31)
[2022-01-15] MEDS: TAMSULOSIN HYDROCHLORIDE 0.4 MG CAP PO SCH ×3 (13:08→21:31)
[2022-01-15 17:00] VITALS: BP 123/88
[2022-01-15 22:00] VITALS: BP 106/74
[2022-01-15] MEDS: TEMAZEPAM 15 MG CAP PO PRN (23:23)
[2022-01-16 05:00] VITALS: BP 123/71
[2022-01-16] MEDS: SEVELAMER 800 MG TAB PO SCH (09:16)
[2022-01-16] MEDS: OXYCODONE W/ ACETAMINOPHEN 5/325MG TABLET PO PRN ×3 (09:17→22:21)
[2022-01-16] MEDS: METOPROLOL SUCCINATE XL 50 MG TAB PO SCH (09:18)
[2022-01-16] MEDS: PANTOPRAZOLE 40 MG TAB PO SCH (09:19)
[2022-01-16] MEDS: amLODIPine BESYLATE 5 MG TAB PO SCH (09:19)
[2022-01-16] MEDS: TAMSULOSIN HYDROCHLORIDE 0.4 MG CAP PO SCH ×2 (09:21→21:23)
[2022-01-16] MEDS: Nepro With Carbsteady ButterPecan 8oz Carton PO SCH ×3 (09:35→18:32)
[2022-01-16] MEDS: RIVAROXABAN 10 MG TAB PO SCH ×2 (09:35→21:23)
[2022-01-16 13:00] VITALS: BP 102/65
[2022-01-16 17:00] VITALS: BP 108/65
[2022-01-16 22:00] VITALS: BP 106/64
[2022-01-16] MEDS: TEMAZEPAM 15 MG CAP PO PRN (23:53)
[2022-01-17 05:00] VITALS: BP 126/73
[2022-01-17] MEDS: OXYCODONE W/ ACETAMINOPHEN 5/325MG TABLET PO PRN ×3 (05:03→16:25)
[2022-01-17] MEDS: Nepro With Carbsteady ButterPecan 8oz Carton PO SCH ×3 (08:00→18:00)
[2022-01-17 09:00] VITALS: BP 99/65
[2022-01-17] MEDS: TAMSULOSIN HYDROCHLORIDE 0.4 MG CAP PO SCH (09:54)
[2022-01-17] MEDS: amLODIPine BESYLATE 5 MG TAB PO SCH (09:54)
[2022-01-17] MEDS: PANTOPRAZOLE 40 MG TAB PO SCH (09:54)
[2022-01-17] MEDS: SEVELAMER 800 MG TAB PO SCH (09:55)
[2022-01-17] MEDS: RIVAROXABAN 10 MG TAB PO SCH (09:55)
[2022-01-17] MEDS: METOPROLOL SUCCINATE XL 50 MG TAB PO SCH (09:57)
[2022-01-17 13:00] VITALS: BP 118/59
[2022-01-17 17:00] VITALS: BP 94/65
[2022-01-18] MEDS ORDERED: SODIUM CHL 0.9% 1000 ML BAG XX ONE (07:00)
== END 2022-01-17 20:00 | DRG 640 ==
LOC: ER 16:40 → EDBD 16:40 → EDUNIT# 16:40 → TELE 01-13 01:35 → TELE-WESTW 01-13 03:47
PROVIDERS: ADMIT Internal Medicine; ATTEND Internal Medicine
PROC: 5A1D70Z Performance of Urinary Filtration, Intermittent, Less than 6 Hours Per Day (ICD-10-PCS; 2022-01-13)
PROC: 0W9G3ZZ Drainage of Peritoneal Cavity, Percutaneous Approach (ICD-10-PCS; principal; 2022-01-14)
PROC: 5A1D70Z Performance of Urinary Filtration, Intermittent, Less than 6 Hours Per Day (ICD-10-PCS; 2022-01-15)
DX: E87.5 Hyperkalemia (principal); N18.6 End stage renal disease; E43 Unspecified severe protein-calorie malnutrition; R18.8 Other ascites; I12.0 Hypertensive chronic kidney disease with stage 5 chronic kidney disease or end stage renal disease; R79.89 Other specified abnormal findings of blood chemistry; E88.09 Other disorders of plasma-protein metabolism, not elsewhere classified; D63.1 Anemia in chronic kidney disease; E11.40 Type 2 diabetes mellitus with diabetic neuropathy, unspecified; F17.210 Nicotine dependence, cigarettes, uncomplicated; Z20.822 Contact with and (suspected) exposure to COVID-19; E11.22 Type 2 diabetes mellitus with diabetic chronic kidney disease; E11.51 Type 2 diabetes mellitus with diabetic peripheral angiopathy without gangrene; I25.10 Atherosclerotic heart disease of native coronary artery without angina pectoris; Z80.0 Family history of malignant neoplasm of digestive organs; Z80.8 Family history of malignant neoplasm of other organs or systems; Z85.841 Personal history of malignant neoplasm of brain; Z99.2 Dependence on renal dialysis; Z79.01 Long term (current) use of anticoagulants; Z91.19 Patient's noncompliance with other medical treatment and regimen; Z89.511 Acquired absence of right leg below knee; Z91.040 Latex allergy status; Z91.010 Allergy to peanuts; Z91.018 Allergy to other foods; Z90.49 Acquired absence of other specified parts of digestive tract; Z91.15 Patient's noncompliance with renal dialysis
CPT/HCPCS: 36415; 71045; 76705; 76942; 80048; 80053; 85025; 85610; 85730; 87081; 87426; 90935; 93005; 93306; 93886; 93971; 94640; 96374; 97163; G0378; J1815

== ENCOUNTER 2022-03-01 13:45 | Inpatient (IN) | payer MEDICARE, MEDICAID ==
[~2022-03-01] VITALS: Ht 175.3 cm; Wt 106.2 kg
[~2022-03-01 13:45] MED LIST changes: +MID10T GT; +PERCOT PO
[2022-03-01] MEDS ORDERED: SODIUM CHLORIDE 0.9% 500 ML IV ONE (14:15)
[2022-03-01 14:28] LABS: Basophils # (auto) 0.1 10 ^3/uL (0-0.2); Basophils % (auto) 1.5 % (0.0-2.0); Eosinophils # (auto) 0.1 10 ^3/uL (0-0.8); Eosinophils % (auto) 1.2 % (0.0-7.0); Hematocrit 28.9 % (41.0-53.0); Hemoglobin 9.4 g/dL (13.5-17.5); Lymphocytes # (auto) 0.7 10 ^3/uL (0.4-5.4); Lymphocytes % (auto) 9.8 % (10.0-50.0); Mean Corpuscular Hemoglobin 28.2 pg (28.0-32.0); Mean Corpuscular Hgb Conc. 32.6 g/dL (32.0-36.0); Mean Corpuscular Volume 86.5 fL (80.0-100.0); Monocytes # (auto) 0.4 10 ^3/uL (0-1.3); Monocytes % (auto) 5.9 % (0.0-12.0); Neutrophils # (auto) 6.1 10 ^3/uL (1.6-8.6); Neutrophils % (auto) 81.6 % (37.0-80.0); Nucleated Red Blood Cells % 0.4 %; Red Blood Cells 3.34 10^6/uL (4.5-5.90); Red Cell Distribution Width 17.4 % (11.8-14.3); White Blood Cell 7.5 10^3/uL (4.4-10.8)
[2022-03-01 14:57] LABS: Albumin 2.3 g/dL (3.4-5.0); Calcium 10.6 mg/dL (8.5-10.1); Magnesium 3.3 mg/dL (1.6-2.6)
[2022-03-01 15:01] LABS: Bilirubin, Total 0.4 mg/dL (0.2-1.0)
[2022-03-01 15:45] LABS: BUN/Creatinine Ratio 13.4
[2022-03-01 15:48] LABS: Potassium 7.8 mmol/L (3.5-5.1)
[2022-03-01] MEDS ORDERED: CALCIUM GLUC 1,000mg/50ml-NS 50 ML IV ONE (16:00)
[2022-03-01] MEDS ORDERED: SODIUM BICARBONATE 8.4 % INJ 50ML VIAL IV ONE (16:00)
[2022-03-01] MEDS ORDERED: DEXTROSE (50%) 50ML SYRG IV ONE (16:15)
[2022-03-01] MEDS ORDERED: InsuLIN REG 1unit/0.01ml Soln (100units/ml) IV ONE (16:15)
[2022-03-01] MEDS ORDERED: SODIUM ZIRCONIUM CYCL 10 GM PAK PO ONE (16:45)
[2022-03-01] MEDS ORDERED: NITROGLYCERIN 0.4 MG SL TAB SL PRN (16:45)
[2022-03-01] MEDS ORDERED: DOCUSATE SOD 100 MG CAP PO PRN (16:45)
[2022-03-01] MEDS ORDERED: MORPHINE SULFATE INJECTION 2 MG/ML SYRG IV PRN (16:45)
[2022-03-01] MEDS ORDERED: ONDANSETRON HCL 4 MG/2 ML VIAL IV PRN (16:45)
[2022-03-01] MEDS ORDERED: SODIUM CHL 0.9% 1000 ML BAG XX ONE (17:45)
[2022-03-01] MEDS ORDERED: EPOETIN ALFA-EPBX 4,000 UNIT/ML VIAL SC ONE (21:00)
[2022-03-01] MEDS ORDERED: RIVAROXABAN 10 MG TAB PO SCH (22:00)
[2022-03-01] MEDS: TAMSULOSIN HYDROCHLORIDE 0.4 MG CAP PO SCH (22:00)
[2022-03-01 23:46] LABS: Albumin 2.3 g/dL (3.4-5.0); Calcium 9.5 mg/dL (8.5-10.1)
[2022-03-01 23:47] LABS: Basophils # (auto) 0.1 10 ^3/uL (0-0.2); Basophils % (auto) 1.3 % (0.0-2.0); Eosinophils # (auto) 0.1 10 ^3/uL (0-0.8); Eosinophils % (auto) 1.1 % (0.0-7.0); Hematocrit 23.9 % (41.0-53.0); Hemoglobin 8.1 g/dL (13.5-17.5); Lymphocytes # (auto) 0.5 10 ^3/uL (0.4-5.4); Lymphocytes % (auto) 7.3 % (10.0-50.0); Mean Corpuscular Hemoglobin 28.5 pg (28.0-32.0); Mean Corpuscular Hgb Conc. 33.8 g/dL (32.0-36.0); Mean Corpuscular Volume 84.5 fL (80.0-100.0); Monocytes # (auto) 0.3 10 ^3/uL (0-1.3); Monocytes % (auto) 3.8 % (0.0-12.0); Neutrophils # (auto) 5.8 10 ^3/uL (1.6-8.6); Neutrophils % (auto) 86.5 % (37.0-80.0); Red Blood Cells 2.83 10^6/uL (4.5-5.90); Red Cell Distribution Width 17.6 % (11.8-14.3); White Blood Cell 6.7 10^3/uL (4.4-10.8)
[2022-03-01 23:50] LABS: BUN/Creatinine Ratio 13.6; Bilirubin, Total 0.4 mg/dL (0.2-1.0); Total Protein 6.2 g/dL (6.4-8.2)
[2022-03-01 23:57] LABS: Potassium 6.6 mmol/L (3.5-5.1)
[2022-03-02] VITALS (13 sets, daily range): BP systolic 134–176; BP diastolic 25–75
[2022-03-02] MEDS: HYDROcodone-ACET 5/325MG TAB PO PRN ×5 (02:10→23:03)
[2022-03-02 06:39] LABS: Basophils # (auto) 0.1 10 ^3/uL (0-0.2); Eosinophils # (auto) 0.1 10 ^3/uL (0-0.8); Lymphocytes # (auto) 0.7 10 ^3/uL (0.4-5.4); Monocytes # (auto) 0.6 10 ^3/uL (0-1.3)
[2022-03-02 06:42] LABS: Basophils % (auto) 1.2 % (0.0-2.0); Eosinophils % (auto) 1.2 % (0.0-7.0); Hemoglobin 7.8 g/dL (13.5-17.5); Lymphocytes % (auto) 9.3 % (10.0-50.0); Mean Corpuscular Volume 85.3 fL (80.0-100.0); Neutrophils # (auto) 6.5 10 ^3/uL (1.6-8.6); Neutrophils % (auto) 81.3 % (37.0-80.0); Nucleated Red Blood Cells % 0.1 %; Red Cell Distribution Width 17.1 % (11.8-14.3)
[2022-03-02 07:05] LABS: Albumin 2.1 g/dL (3.4-5.0); Calcium 10.1 mg/dL (8.5-10.1)
[2022-03-02 07:09] LABS: BUN/Creatinine Ratio 13.6; Bilirubin, Total 0.4 mg/dL (0.2-1.0); Total Protein 6.5 g/dL (6.4-8.2)
[2022-03-02 07:16] LABS: Potassium 7.6 mmol/L (3.5-5.1)
[2022-03-02] MEDS: amLODIPine BESYLATE 5 MG TAB PO SCH ×3 (10:00→17:27)
[2022-03-02] MEDS: TAMSULOSIN HYDROCHLORIDE 0.4 MG CAP PO SCH ×3 (10:00→22:13)
[2022-03-02] MEDS: ASCORBIC ACID 500 MG TAB PO SCH ×2 (10:00→10:36)
[2022-03-02] MEDS: METOPROLOL SUCCINATE XL 50 MG TAB PO SCH ×2 (10:00→10:34)
[2022-03-02] MEDS: SEVELAMER 800 MG TAB PO SCH ×2 (10:00→10:37)
[2022-03-02] MEDS: B-COMPLEX W/ C & FOLIC ACID(NEPHROVITE TAB) PO SCH ×2 (10:00→10:37)
[2022-03-02] MEDS: dilTIAZem 120MG ER CAP PO SCH ×3 (10:00→17:26)
[2022-03-02] MEDS: PANTOPRAZOLE 40 MG TAB PO SCH ×2 (10:00→10:36)
[2022-03-02] MEDS ORDERED: diphenhdrAMINE HCL 25 MG CAP PO PRN (10:45)
[2022-03-02] MEDS ORDERED: ALBUTEROL SULF 2.5 MG/0.5ML(0.5%) NEB SOLN NEB ONE (11:00)
[2022-03-02] MEDS ORDERED: DEXTROSE (50%) 50ML SYRG IV ONE (11:00)
[2022-03-02] MEDS ORDERED: CALCIUM GLUC 1,000mg/50ml-NS 50 ML IV ONE (11:00)
[2022-03-02] MEDS ORDERED: SODIUM BICARBONATE 8.4% INJ 50ML SYRINGE IV ONE (11:00)
[2022-03-02] MEDS ORDERED: InsuLIN REG 1unit/0.01ml Soln (100units/ml) IV ONE (11:00)
[2022-03-02] MEDS ORDERED: SODIUM ZIRCONIUM CYCL 10 GM PAK PO ONE (11:00)
[2022-03-02] MEDS: SODIUM ZIRCONIUM CYCL 10 GM PAK PO SCH ×2 (13:49→22:12)
[2022-03-02] MEDS: ACETAMINOPHEN 325 MG TAB PO PRN (17:26)
[2022-03-03] VITALS (18 sets, daily range): BP systolic 90–157; BP diastolic 38–83
[2022-03-03] MEDS: SODIUM ZIRCONIUM CYCL 10 GM PAK PO SCH ×3 (06:00→23:31)
[2022-03-03 07:00] LABS: Calcium 10.2 mg/dL (8.5-10.1)
[2022-03-03 07:04] LABS: Bilirubin, Total 0.4 mg/dL (0.2-1.0); Total Protein 6.2 g/dL (6.4-8.2)
[2022-03-03] MEDS: HYDROcodone-ACET 5/325MG TAB PO PRN ×4 (07:35→17:38)
[2022-03-03 07:53] LABS: BUN/Creatinine Ratio 14.4; Potassium 7.5 mmol/L (3.5-5.1)
[2022-03-03] MEDS: METOPROLOL SUCCINATE XL 50 MG TAB PO SCH (10:00)
[2022-03-03] MEDS ORDERED: InsuLIN REG 1unit/0.01ml Soln (100units/ml) IV ONE (10:15)
[2022-03-03] MEDS ORDERED: CALCIUM GLUC 1,000mg/50ml-NS 50 ML IV ONE (10:15)
[2022-03-03] MEDS ORDERED: SODIUM BICARBONATE 8.4% INJ 50ML SYRINGE IV ONE (10:15)
[2022-03-03] MEDS ORDERED: DEXTROSE (50%) 50ML SYRG IV ONE (10:15)
[2022-03-03] MEDS: B-COMPLEX W/ C & FOLIC ACID(NEPHROVITE TAB) PO SCH (10:24)
[2022-03-03] MEDS: TAMSULOSIN HYDROCHLORIDE 0.4 MG CAP PO SCH ×2 (10:24→23:31)
[2022-03-03] MEDS: SEVELAMER 800 MG TAB PO SCH (10:24)
[2022-03-03] MEDS: ASCORBIC ACID 500 MG TAB PO SCH (10:25)
[2022-03-03] MEDS: ACETAMINOPHEN 325 MG TAB PO PRN (10:25)
[2022-03-03] MEDS: PANTOPRAZOLE 40 MG TAB PO SCH (10:25)
[2022-03-03] MEDS: ALPRAZolam 0.5 MG TAB PO PRN (12:25)
[2022-03-03] MEDS ORDERED: SODIUM CHL 0.9% 1000 ML BAG XX ONE (12:30)
[2022-03-03] MEDS: ALBUMIN 25% 100 ML IV SCH ×2 (13:18→13:27)
[2022-03-03 14:09] LABS: Basophils # (auto) 0.1 10 ^3/uL (0-0.2); Basophils % (auto) 1.8 % (0.0-2.0); Eosinophils # (auto) 0.1 10 ^3/uL (0-0.8); Eosinophils % (auto) 1.2 % (0.0-7.0); Hematocrit 22.3 % (41.0-53.0); Hemoglobin 7.6 g/dL (13.5-17.5); Lymphocytes # (auto) 0.7 10 ^3/uL (0.4-5.4); Mean Corpuscular Hemoglobin 28.6 pg (28.0-32.0); Mean Corpuscular Hgb Conc. 33.9 g/dL (32.0-36.0); Mean Corpuscular Volume 84.2 fL (80.0-100.0); Monocytes # (auto) 0.6 10 ^3/uL (0-1.3); Monocytes % (auto) 7.6 % (0.0-12.0); Neutrophils # (auto) 5.8 10 ^3/uL (1.6-8.6); Neutrophils % (auto) 80.4 % (37.0-80.0); Red Blood Cells 2.66 10^6/uL (4.5-5.90); Red Cell Distribution Width 17.2 % (11.8-14.3); White Blood Cell 7.3 10^3/uL (4.4-10.8)
[2022-03-03] MEDS ORDERED: EPOETIN ALFA-EPBX 10,000 UNIT/1ML VIAL SC ONE (21:00)
[2022-03-04 00:30] VITALS: BP 170/73
[2022-03-04] MEDS: HYDROcodone-ACET 5/325MG TAB PO PRN ×6 (00:34→22:04)
[2022-03-04 05:01] LABS: Basophils # (auto) 0.1 10 ^3/uL (0-0.2); Eosinophils # (auto) 0.1 10 ^3/uL (0-0.8); Lymphocytes # (auto) 0.6 10 ^3/uL (0.4-5.4); Monocytes # (auto) 0.5 10 ^3/uL (0-1.3)
[2022-03-04 05:04] LABS: Basophils % (auto) 1.1 % (0.0-2.0); Eosinophils % (auto) 0.7 % (0.0-7.0); Hematocrit 23.2 % (41.0-53.0); Hemoglobin 7.9 g/dL (13.5-17.5); Lymphocytes % (auto) 7.6 % (10.0-50.0); Mean Corpuscular Hemoglobin 28.9 pg (28.0-32.0); Mean Corpuscular Hgb Conc. 33.9 g/dL (32.0-36.0); Mean Corpuscular Volume 85.4 fL (80.0-100.0); Monocytes % (auto) 6.4 % (0.0-12.0); Neutrophils # (auto) 6.6 10 ^3/uL (1.6-8.6); Neutrophils % (auto) 84.2 % (37.0-80.0); Red Blood Cells 2.72 10^6/uL (4.5-5.90); Red Cell Distribution Width 17.3 % (11.8-14.3); White Blood Cell 7.9 10^3/uL (4.4-10.8)
[2022-03-04 05:23] LABS: Albumin 2.6 g/dL (3.4-5.0); BUN/Creatinine Ratio 13.4; Calcium 10.2 mg/dL (8.5-10.1)
[2022-03-04 05:26] LABS: Bilirubin, Total 0.5 mg/dL (0.2-1.0); Total Protein 6.4 g/dL (6.4-8.2)
[2022-03-04 05:34] LABS: Potassium 5.8 mmol/L (3.5-5.1)
[2022-03-04] MEDS: SODIUM ZIRCONIUM CYCL 10 GM PAK PO SCH ×3 (05:47→22:04)
[2022-03-04] MEDS ORDERED: DEXTROSE 50% SYRINGE 50 ML IV ONE (06:33)
[2022-03-04] MEDS ORDERED: DEXTROSE (50%) 50ML SYRG IV PRN (07:45)
[2022-03-04] MEDS: ACCU-CHEK COMFORT CURVE STRIP VI SCH ×4 (08:00→18:00)
[2022-03-04 10:00] VITALS: BP 166/38
[2022-03-04] MEDS: SEVELAMER 800 MG TAB PO SCH (10:35)
[2022-03-04] MEDS: TAMSULOSIN HYDROCHLORIDE 0.4 MG CAP PO SCH ×2 (10:35→22:04)
[2022-03-04] MEDS: B-COMPLEX W/ C & FOLIC ACID(NEPHROVITE TAB) PO SCH (10:35)
[2022-03-04] MEDS: PANTOPRAZOLE 40 MG TAB PO SCH (10:35)
[2022-03-04] MEDS: ASCORBIC ACID 500 MG TAB PO SCH (10:35)
[2022-03-04] MEDS: dilTIAZem 120MG ER CAP PO SCH (10:36)
[2022-03-04] MEDS: METOPROLOL SUCCINATE XL 50 MG TAB PO SCH (10:37)
[2022-03-04] MEDS: amLODIPine BESYLATE 5 MG TAB PO SCH (10:37)
[2022-03-04 12:00] VITALS: BP 160/60
[2022-03-04 16:00] VITALS: BP 131/27
[2022-03-04] MEDS: Nepro With Carbsteady ButterPecan 8oz Carton PO SCH (18:23)
[2022-03-04] MEDS ORDERED: traZODone HCL 50 MG TAB PO PRN (18:30)
[2022-03-04 20:00] VITALS: BP 125/50
[2022-03-05] VITALS: BP 129/34
[2022-03-05] MEDS: ACCU-CHEK COMFORT CURVE STRIP VI SCH ×4 (00:30→18:00)
[2022-03-05 04:00] VITALS: BP 155/54
[2022-03-05] MEDS: SODIUM ZIRCONIUM CYCL 10 GM PAK PO SCH ×2 (06:17→15:50)
[2022-03-05] MEDS: HYDROcodone-ACET 5/325MG TAB PO PRN ×3 (06:17→18:57)
[2022-03-05] MEDS ORDERED: SODIUM CHL 0.9% 1000 ML BAG XX ONE (07:00)
[2022-03-05] MEDS: Nepro With Carbsteady ButterPecan 8oz Carton PO SCH ×3 (08:00→18:00)
[2022-03-05 10:00] VITALS: BP 136/48
[2022-03-05] MEDS: METOPROLOL SUCCINATE XL 50 MG TAB PO SCH (10:00)
[2022-03-05] MEDS: amLODIPine BESYLATE 5 MG TAB PO SCH (10:00)
[2022-03-05] MEDS ORDERED: ALBUMIN 25% 200 ML IV ONE (10:30)
[2022-03-05 12:00] VITALS: BP 183/124
[2022-03-05] MEDS: TAMSULOSIN HYDROCHLORIDE 0.4 MG CAP PO SCH (13:27)
[2022-03-05] MEDS: dilTIAZem 120MG ER CAP PO SCH (13:27)
[2022-03-05] MEDS: SEVELAMER 800 MG TAB PO SCH (13:27)
[2022-03-05] MEDS: ASCORBIC ACID 500 MG TAB PO SCH (13:27)
[2022-03-05] MEDS: B-COMPLEX W/ C & FOLIC ACID(NEPHROVITE TAB) PO SCH (13:27)
[2022-03-05] MEDS: ALPRAZolam 0.5 MG TAB PO PRN (13:27)
[2022-03-05] MEDS: PANTOPRAZOLE 40 MG TAB PO SCH (13:28)
[2022-03-05 14:00] VITALS: BP 134/106
[2022-03-05 16:00] VITALS: BP_SYST 102; BP_SYST 125; BP_DIAS 53; BP_DIAS 63
== END 2022-03-05 21:00 | DRG 640 ==
LOC: ER 13:45 → TELE 16:35 → TELE-EAST 23:51 → DOU IN ICU 03-02 01:37 → TELE-EAST 03-02 01:37
PROVIDERS: ADMIT Nurse Practitioner; ATTEND Nurse Practitioner
PROC: 5A1D70Z Performance of Urinary Filtration, Intermittent, Less than 6 Hours Per Day (ICD-10-PCS; 2022-03-01)
PROC: 5A1D70Z Performance of Urinary Filtration, Intermittent, Less than 6 Hours Per Day (ICD-10-PCS; principal; 2022-03-03)
DX: E87.70 Fluid overload, unspecified (principal); N18.6 End stage renal disease; J18.9 Pneumonia, unspecified organism; J96.01 Acute respiratory failure with hypoxia; I12.0 Hypertensive chronic kidney disease with stage 5 chronic kidney disease or end stage renal disease; R18.8 Other ascites; G93.49 Other encephalopathy; R64 Cachexia; E87.5 Hyperkalemia; E88.09 Other disorders of plasma-protein metabolism, not elsewhere classified; D63.8 Anemia in other chronic diseases classified elsewhere; E83.39 Other disorders of phosphorus metabolism; Z20.822 Contact with and (suspected) exposure to COVID-19; E11.65 Type 2 diabetes mellitus with hyperglycemia; L98.499 Non-pressure chronic ulcer of skin of other sites with unspecified severity; E11.621 Type 2 diabetes mellitus with foot ulcer; G89.29 Other chronic pain; K59.00 Constipation, unspecified; E11.51 Type 2 diabetes mellitus with diabetic peripheral angiopathy without gangrene; E78.5 Hyperlipidemia, unspecified; L97.529 Non-pressure chronic ulcer of other part of left foot with unspecified severity; Z99.2 Dependence on renal dialysis; Z91.040 Latex allergy status; Z91.018 Allergy to other foods; Z89.511 Acquired absence of right leg below knee; Z80.0 Family history of malignant neoplasm of digestive organs; Z80.8 Family history of malignant neoplasm of other organs or systems; Z91.14 Patient's other noncompliance with medication regimen; Z68.34 Body mass index [BMI] 34.0-34.9, adult; Z79.84 Long term (current) use of oral hypoglycemic drugs
CPT/HCPCS: 36415; 71045; 80053; 82962; 83735; 84132; 85025; 85652; 87081; 87340; 90935; 93005; 93971; 94640; 96361; 96365; 96375; 99291; G0378; J1815; J2405; P9047

== ENCOUNTER 2022-03-17 13:16 | Inpatient (IN) | payer MEDICARE, MEDICAID ==
[~2022-03-17] VITALS: Ht 182.9 cm; Wt 105.0 kg
[~2022-03-17 13:16] MED LIST changes: -FENT12DI TD; -PERCOT PO
[2022-03-17 14:32] LABS: Basophils # (auto) 0.1 10 ^3/uL (0-0.2); Eosinophils # (auto) 0 10 ^3/uL (0-0.8); Lymphocytes # (auto) 0.3 10 ^3/uL (0.4-5.4); Monocytes # (auto) 0.5 10 ^3/uL (0-1.3)
[2022-03-17 14:34] LABS: Eosinophils % (auto) 0.5 % (0.0-7.0); Lymphocytes % (auto) 4.7 % (10.0-50.0); Mean Corpuscular Hemoglobin 28.7 pg (28.0-32.0); Mean Corpuscular Hgb Conc. 31.9 g/dL (32.0-36.0); Neutrophils # (auto) 6.2 10 ^3/uL (1.6-8.6); Neutrophils % (auto) 86.8 % (37.0-80.0); Nucleated Red Blood Cells % 0.2 %; Red Blood Cells 2.44 10^6/uL (4.5-5.90); Red Cell Distribution Width 18.5 % (11.8-14.3); White Blood Cell 7.1 10^3/uL (4.4-10.8)
[2022-03-17 14:48] LABS: Albumin 2.2 g/dL (3.4-5.0); Calcium 10.2 mg/dL (8.5-10.1)
[2022-03-17 14:51] LABS: BUN/Creatinine Ratio 12.6; Bilirubin, Total 0.4 mg/dL (0.2-1.0); Total Protein 6.6 g/dL (6.4-8.2)
[2022-03-17 15:31] LABS: Potassium 6.1 mmol/L (3.5-5.1)
[2022-03-17] MEDS ORDERED: ACETAMINOPHEN 325 MG TAB PO PRN (17:30)
[2022-03-17] MEDS ORDERED: MORPHINE SULFATE INJECTION 2 MG/ML SYRG IV PRN ×3 (17:30→18:45)
[2022-03-17] MEDS ORDERED: ONDANSETRON HCL 4 MG/2 ML VIAL IV PRN (17:30)
[2022-03-17] MEDS ORDERED: NITROGLYCERIN 0.4 MG SL TAB SL PRN (17:30)
[2022-03-17] MEDS ORDERED: SODIUM ZIRCONIUM CYCL 10 GM PAK PO ONE (19:45)
[2022-03-17] MEDS: MORPHINE SULFATE INJECTION 2 MG/ML SYRG IV PRN (21:49)
[2022-03-17] MEDS ORDERED: ASCORBIC ACID 500 MG TAB PO SCH (22:00)
[2022-03-17] MEDS: LORazepam 2MG/ML-1ML VIAL IV PRN (23:27)
[2022-03-18] VITALS (62 sets, daily range): BP systolic 80–149; BP diastolic 58–99
[2022-03-18 06:29] LABS: Calcium 9.6 mg/dL (8.5-10.1)
[2022-03-18 06:34] LABS: BUN/Creatinine Ratio 13.1; Bilirubin, Total 0.5 mg/dL (0.2-1.0); Total Protein 6.1 g/dL (6.4-8.2)
[2022-03-18 06:43] LABS: Potassium 6.8 mmol/L (3.5-5.1)
[2022-03-18 07:04] LABS: Basophils # (auto) 0.1 10 ^3/uL (0-0.2); Eosinophils # (auto) 0 10 ^3/uL (0-0.8); Eosinophils % (auto) 0.7 % (0.0-7.0); Hematocrit 22.3 % (41.0-53.0); Hemoglobin 7.3 g/dL (13.5-17.5); Lymphocytes # (auto) 0.3 10 ^3/uL (0.4-5.4); Lymphocytes % (auto) 5.7 % (10.0-50.0); Mean Corpuscular Hemoglobin 28.5 pg (28.0-32.0); Mean Corpuscular Hgb Conc. 32.8 g/dL (32.0-36.0); Monocytes # (auto) 0.5 10 ^3/uL (0-1.3); Monocytes % (auto) 9.4 % (0.0-12.0); Neutrophils # (auto) 4.5 10 ^3/uL (1.6-8.6); Neutrophils % (auto) 83.2 % (37.0-80.0); Nucleated Red Blood Cells % 0.1 %; Red Blood Cells 2.57 10^6/uL (4.5-5.90); Red Cell Distribution Width 18.3 % (11.8-14.3); White Blood Cell 5.4 10^3/uL (4.4-10.8)
[2022-03-18] MEDS: MORPHINE SULFATE INJECTION 2 MG/ML SYRG IV PRN ×2 (08:28→16:46)
[2022-03-18] MEDS: MULTIPLE VITAMIN TAB PO SCH (10:00)
[2022-03-18] MEDS: ZINC SULFATE 220mg CAP or TAB PO SCH (10:00)
[2022-03-18] MEDS ORDERED: ALBUMIN 25% 100 ML IV ONE ×2 (12:00)
[2022-03-18] MEDS ORDERED: dilTIAZem 25 MG/5 ML VIAL IV ONE (12:45)
[2022-03-18 19:36] LABS: BUN/Creatinine Ratio 12.8; Calcium 10.2 mg/dL (8.5-10.1)
[2022-03-18] MEDS: TEMAZEPAM 15 MG CAP PO PRN (22:08)
[2022-03-18] MEDS: HYDROcodone-ACET 5/325MG TAB PO PRN (22:09)
[2022-03-19] VITALS (26 sets, daily range): BP systolic 83–138; BP diastolic 52–94
[2022-03-19 05:24] LABS: Basophils # (auto) 0 10 ^3/uL (0-0.2); Eosinophils # (auto) 0 10 ^3/uL (0-0.8); Hemoglobin 7.8 g/dL (13.5-17.5); Lymphocytes # (auto) 0.3 10 ^3/uL (0.4-5.4); Monocytes # (auto) 0.7 10 ^3/uL (0-1.3); White Blood Cell 6.7 10^3/uL (4.4-10.8)
[2022-03-19 05:26] LABS: Basophils % (auto) 0.7 % (0.0-2.0); Eosinophils % (auto) 0.1 % (0.0-7.0); Hematocrit 24.1 % (41.0-53.0); Lymphocytes % (auto) 4.8 % (10.0-50.0); Mean Corpuscular Hemoglobin 29.6 pg (28.0-32.0); Mean Corpuscular Hgb Conc. 32.4 g/dL (32.0-36.0); Mean Corpuscular Volume 91.4 fL (80.0-100.0); Monocytes % (auto) 10.4 % (0.0-12.0); Neutrophils # (auto) 5.6 10 ^3/uL (1.6-8.6); Nucleated Red Blood Cells % 0.3 %; Red Blood Cells 2.64 10^6/uL (4.5-5.90); Red Cell Distribution Width 18.1 % (11.8-14.3)
[2022-03-19 05:48] LABS: Calcium 10.3 mg/dL (8.5-10.1); Potassium 5.4 mmol/L (3.5-5.1)
[2022-03-19 05:50] LABS: BUN/Creatinine Ratio 12.9
[2022-03-19] MEDS: HYDROcodone-ACET 5/325MG TAB PO PRN (06:15)
[2022-03-19] MEDS: MULTIPLE VITAMIN TAB PO SCH (10:00)
[2022-03-19] MEDS ORDERED: APIXABAN 2.5 MG TAB PO SCH (10:00)
[2022-03-19] MEDS: PANTOPRAZOLE 40 MG TAB PO SCH (10:00)
[2022-03-19] MEDS ORDERED: SODIUM CHL 0.9% 1000 ML BAG XX ONE (10:00)
[2022-03-19] MEDS: ZINC SULFATE 220mg CAP or TAB PO SCH (10:00)
[2022-03-19] MEDS: APIXABAN 5 MG TAB PO SCH ×2 (10:00→22:00)
[2022-03-19] MEDS ORDERED: ALBUMIN 25% 100 ML IV ONE ×3 (11:00→11:15)
[2022-03-19] MEDS ORDERED: BUMETANIDE 2.5mg/10ml (0.25 mg/ml) INJ IV ONE (11:30)
[2022-03-19 11:53] LABS: INR 1.1 (0.9-1.15)
[2022-03-19] MEDS ORDERED: EPOETIN ALFA-EPBX 10,000 UNIT/1ML VIAL SC ONE (21:00)
[2022-03-20] VITALS (8 sets, daily range): BP systolic 113–158; BP diastolic 70–89
[2022-03-20] MEDS: LORazepam 2MG/ML-1ML VIAL IV PRN (03:03)
[2022-03-20] MEDS ORDERED: SODIUM CHL 0.9% 1000 ML BAG XX ONE (07:00)
[2022-03-20 09:08] LABS: Basophils # (auto) 0 10 ^3/uL (0-0.2); Basophils % (auto) 0.8 % (0.0-2.0); Eosinophils # (auto) 0 10 ^3/uL (0-0.8); Neutrophils # (auto) 3.5 10 ^3/uL (1.6-8.6)
[2022-03-20 09:10] LABS: Eosinophils % (auto) 0.2 % (0.0-7.0); Lymphocytes # (auto) 0.4 10 ^3/uL (0.4-5.4); Lymphocytes % (auto) 8.6 % (10.0-50.0); Mean Corpuscular Hemoglobin 29.7 pg (28.0-32.0); Mean Corpuscular Hgb Conc. 33.3 g/dL (32.0-36.0); Mean Corpuscular Volume 89.2 fL (80.0-100.0); Monocytes # (auto) 0.6 10 ^3/uL (0-1.3); Monocytes % (auto) 13.6 % (0.0-12.0); Neutrophils % (auto) 76.8 % (37.0-80.0); Nucleated Red Blood Cells % 0.2 %; Red Blood Cells 2.13 10^6/uL (4.5-5.90); Red Cell Distribution Width 17.9 % (11.8-14.3); White Blood Cell 4.6 10^3/uL (4.4-10.8)
[2022-03-20] MEDS: ZINC SULFATE 220mg CAP or TAB PO SCH (10:07)
[2022-03-20] MEDS: PANTOPRAZOLE 40 MG TAB PO SCH (10:08)
[2022-03-20] MEDS: APIXABAN 5 MG TAB PO SCH ×2 (10:08→21:30)
[2022-03-20] MEDS: MULTIPLE VITAMIN TAB PO SCH (10:08)
[2022-03-20] MEDS ORDERED: ASCORBIC ACID 500 MG TAB PO SCH (10:15)
[2022-03-20] MEDS: ALBUMIN 25% 100 ML IV SCH ×2 (10:16→10:30)
[2022-03-20 11:00] LABS: Calcium 10.1 mg/dL (8.5-10.1); Potassium 5.1 mmol/L (3.5-5.1)
[2022-03-20 11:07] LABS: Hemoglobin 6.3 g/dL (13.5-17.5)
[2022-03-20] MEDS: ASCORBIC ACID 500 MG TAB PO SCH (11:16)
[2022-03-20] MEDS ORDERED: EPOETIN ALFA-EPBX 10,000 UNIT/1ML VIAL SC ONE (21:00)
[2022-03-21 01:14] VITALS: BP 118/86
[2022-03-21] MEDS: LORazepam 2MG/ML-1ML VIAL IV PRN ×3 (01:31→21:26)
[2022-03-21 06:54] LABS: Nucleated Red Blood Cells % 0.1 %; Red Cell Distribution Width 18.3 % (11.8-14.3)
[2022-03-21 07:00] LABS: Basophils # (auto) 0.1 10 ^3/uL (0-0.2); Basophils % (auto) 1.2 % (0.0-2.0); Eosinophils # (auto) 0 10 ^3/uL (0-0.8); Eosinophils % (auto) 0.8 % (0.0-7.0); Hematocrit 24.9 % (41.0-53.0); Hemoglobin 7.8 g/dL (13.5-17.5); Lymphocytes # (auto) 0.3 10 ^3/uL (0.4-5.4); Lymphocytes % (auto) 5.8 % (10.0-50.0); Mean Corpuscular Hemoglobin 28.8 pg (28.0-32.0); Mean Corpuscular Hgb Conc. 31.3 g/dL (32.0-36.0); Monocytes # (auto) 0.8 10 ^3/uL (0-1.3); Monocytes % (auto) 13.2 % (0.0-12.0); Neutrophils # (auto) 4.7 10 ^3/uL (1.6-8.6); Red Blood Cells 2.71 10^6/uL (4.5-5.90); White Blood Cell 5.9 10^3/uL (4.4-10.8)
[2022-03-21 07:16] LABS: Potassium 4.8 mmol/L (3.5-5.1)
[2022-03-21 07:17] LABS: BUN/Creatinine Ratio 12.2; Calcium 10.2 mg/dL (8.5-10.1)
[2022-03-21 09:00] VITALS: BP 117/80
[2022-03-21 10:18] VITALS: BP 117/80
[2022-03-21] MEDS: APIXABAN 5 MG TAB PO SCH ×2 (10:36→21:25)
[2022-03-21] MEDS: PANTOPRAZOLE 40 MG TAB PO SCH (10:36)
[2022-03-21] MEDS: MULTIPLE VITAMIN TAB PO SCH (10:36)
[2022-03-21] MEDS: ZINC SULFATE 220mg CAP or TAB PO SCH (10:36)
[2022-03-21] MEDS: guaiFENesin 200 MG/10 ML UD PO PRN (12:53)
[2022-03-21 13:00] VITALS: BP 106/76
[2022-03-21] MEDS: MORPHINE SULFATE INJECTION 2 MG/ML SYRG IV PRN (14:29)
[2022-03-21 17:00] VITALS: BP 93/64
[2022-03-21 22:00] VITALS: BP 125/85
[2022-03-22] MEDS ORDERED: ALBUMIN 25% 50 ML IV ONE
[2022-03-22 05:00] VITALS: BP 114/80
[2022-03-22 06:20] LABS: Hematocrit 24.7 % (41.0-53.0); Hemoglobin 8.4 g/dL (13.5-17.5); Mean Corpuscular Hemoglobin 29.7 pg (28.0-32.0); Mean Corpuscular Hgb Conc. 34.2 g/dL (32.0-36.0); Red Blood Cells 2.83 10^6/uL (4.5-5.90); Red Cell Distribution Width 17.5 % (11.8-14.3); White Blood Cell 6.7 10^3/uL (4.4-10.8)
[2022-03-22 06:23] LABS: Basophils % (manual) 0 (0.0-2.0); Blast Cells 0; Eosinophils % (manual) 0 (0-7); Metamyelocytes % 0; Myelocytes % 0; Promyelocytes % 0; Reactive Lymphocytes 0
[2022-03-22] MEDS ORDERED: SODIUM CHL 0.9% 1000 ML BAG XX ONE (07:00)
[2022-03-22 07:45] LABS: BUN/Creatinine Ratio 12.8; Calcium 10.7 mg/dL (8.5-10.1); Potassium 4.6 mmol/L (3.5-5.1)
[2022-03-22 09:20] LABS: Band Neutrophils % (manual) 3; Lymphocytes % (manual) 17 (10.0-50.0); Monocytes % (manual) 11 (0-12)
[2022-03-22] MEDS: APIXABAN 5 MG TAB PO SCH ×2 (11:20→21:00)
[2022-03-22] MEDS: MULTIPLE VITAMIN TAB PO SCH (11:20)
[2022-03-22] MEDS: ZINC SULFATE 220mg CAP or TAB PO SCH (11:20)
[2022-03-22] MEDS: ASCORBIC ACID 500 MG TAB PO SCH (11:20)
[2022-03-22] MEDS: PANTOPRAZOLE 40 MG TAB PO SCH (11:23)
[2022-03-22] MEDS ORDERED: ALBUMIN 25% 100 ML IV PRN (11:30)
[2022-03-22 13:00] VITALS: BP 99/71
[2022-03-22 17:13] VITALS: BP 114/43
[2022-03-22] MEDS ORDERED: EPOETIN ALFA-EPBX 4,000 UNIT/ML VIAL SC ONE (21:00)
[2022-03-22 22:00] VITALS: BP 120/91
[2022-03-23 04:51] VITALS: BP 107/83
[2022-03-23 06:56] LABS: BUN/Creatinine Ratio 12.4; Calcium 10.2 mg/dL (8.5-10.1); Potassium 4.4 mmol/L (3.5-5.1)
[2022-03-23 07:04] LABS: Basophils # (auto) 0 10 ^3/uL (0-0.2); Basophils % (auto) 0.6 % (0.0-2.0); Eosinophils # (auto) 0 10 ^3/uL (0-0.8); Eosinophils % (auto) 0.2 % (0.0-7.0); Hematocrit 24.4 % (41.0-53.0); Lymphocytes # (auto) 0.8 10 ^3/uL (0.4-5.4); Lymphocytes % (auto) 12.9 % (10.0-50.0); Mean Corpuscular Hemoglobin 29.5 pg (28.0-32.0); Mean Corpuscular Hgb Conc. 32.8 g/dL (32.0-36.0); Mean Corpuscular Volume 89.9 fL (80.0-100.0); Monocytes # (auto) 0.6 10 ^3/uL (0-1.3); Monocytes % (auto) 10.2 % (0.0-12.0); Neutrophils # (auto) 4.7 10 ^3/uL (1.6-8.6); Neutrophils % (auto) 76.1 % (37.0-80.0); Nucleated Red Blood Cells % 0.4 %; Red Blood Cells 2.71 10^6/uL (4.5-5.90); Red Cell Distribution Width 17.7 % (11.8-14.3); White Blood Cell 6.2 10^3/uL (4.4-10.8)
[2022-03-23] MEDS: ZINC SULFATE 220mg CAP or TAB PO SCH (11:32)
[2022-03-23] MEDS: APIXABAN 5 MG TAB PO SCH ×2 (11:32→21:34)
[2022-03-23] MEDS: MULTIPLE VITAMIN TAB PO SCH (11:32)
[2022-03-23] MEDS: PANTOPRAZOLE 40 MG TAB PO SCH (11:32)
[2022-03-23] MEDS: DOCUSATE SOD 100 MG CAP PO PRN ×2 (12:45→21:38)
[2022-03-23 17:00] VITALS: BP 120/75
[2022-03-23] MEDS: TEMAZEPAM 15 MG CAP PO PRN (21:39)
[2022-03-23 22:13] VITALS: BP 105/68
[2022-03-24] MEDS: LORazepam 2MG/ML-1ML VIAL IV PRN (01:09)
[2022-03-24 05:33] VITALS: BP 111/78
[2022-03-24] MEDS ORDERED: SODIUM CHL 0.9% 1000 ML BAG XX ONE (07:00)
[2022-03-24 09:00] VITALS: BP 119/79
[2022-03-24] MEDS: MULTIPLE VITAMIN TAB PO SCH (10:00)
[2022-03-24] MEDS: ZINC SULFATE 220mg CAP or TAB PO SCH (10:00)
[2022-03-24] MEDS: ASCORBIC ACID 500 MG TAB PO SCH (10:30)
[2022-03-24] MEDS: APIXABAN 5 MG TAB PO SCH ×2 (11:48→22:22)
[2022-03-24] MEDS: PANTOPRAZOLE 40 MG TAB PO SCH (11:49)
[2022-03-24 13:00] VITALS: BP 95/57
[2022-03-24 16:56] VITALS: BP 100/70
[2022-03-24 18:30] LABS: Hematocrit 28.4 % (41.0-53.0)
[2022-03-24] MEDS ORDERED: EPOETIN ALFA-EPBX 10,000 UNIT/1ML VIAL SC ONE (21:00)
[2022-03-24 22:19] VITALS: BP 112/69
[2022-03-24] MEDS: TEMAZEPAM 15 MG CAP PO PRN (22:22)
[2022-03-24] MEDS: MORPHINE SULFATE INJECTION 2 MG/ML SYRG IV PRN (22:52)
[2022-03-25] MEDS: HYDROcodone-ACET 5/325MG TAB PO PRN (04:09)
[2022-03-25] MEDS: guaiFENesin 200 MG/10 ML UD PO PRN (04:09)
[2022-03-25 05:24] VITALS: BP 113/85
[2022-03-25 08:30] VITALS: BP 104/67
[2022-03-25] MEDS: PANTOPRAZOLE 40 MG TAB PO SCH (10:06)
[2022-03-25] MEDS: APIXABAN 5 MG TAB PO SCH (10:06)
[2022-03-25] MEDS: ZINC SULFATE 220mg CAP or TAB PO SCH (10:06)
[2022-03-25] MEDS: MULTIPLE VITAMIN TAB PO SCH (10:06)
[2022-03-25 13:00] VITALS: BP 105/68
[2022-03-25] MEDS ORDERED: APIX5TAB PO (13:25)
[2022-03-25 16:35] VITALS: BP 123/76
[2022-03-25 16:55] VITALS: BP 118/85
[2022-03-25 18:12] LABS: Eosinophils # (auto) 0 10 ^3/uL (0-0.8); Monocytes # (auto) 0.6 10 ^3/uL (0-1.3)
[2022-03-25 18:13] LABS: Basophils # (auto) 0 10 ^3/uL (0-0.2); Basophils % (auto) 0.6 % (0.0-2.0); Eosinophils % (auto) 0.4 % (0.0-7.0); Hematocrit 24.4 % (41.0-53.0); Lymphocytes # (auto) 0.8 10 ^3/uL (0.4-5.4); Lymphocytes % (auto) 11.5 % (10.0-50.0); Mean Corpuscular Hemoglobin 28.9 pg (28.0-32.0); Mean Corpuscular Hgb Conc. 32.7 g/dL (32.0-36.0); Mean Corpuscular Volume 88.4 fL (80.0-100.0); Monocytes % (auto) 8.2 % (0.0-12.0); Neutrophils # (auto) 5.8 10 ^3/uL (1.6-8.6); Neutrophils % (auto) 79.3 % (37.0-80.0); Nucleated Red Blood Cells % 0.3 %; Red Blood Cells 2.76 10^6/uL (4.5-5.90); Red Cell Distribution Width 17.4 % (11.8-14.3); White Blood Cell 7.3 10^3/uL (4.4-10.8)
[2022-03-25 18:29] LABS: BUN/Creatinine Ratio 13.4; Calcium 9.7 mg/dL (8.5-10.1); Potassium 4.7 mmol/L (3.5-5.1)
== END 2022-03-25 20:06 | DRG 640 ==
LOC: EDBD 13:16 → ER 13:16 → TELE 17:25 → DOU IN ICU 23:25 → TELE-EAST 03-19 23:25
PROVIDERS: ADMIT Internal Medicine; ATTEND Internal Medicine
PROC: 5A1D70Z Performance of Urinary Filtration, Intermittent, Less than 6 Hours Per Day (ICD-10-PCS; 2022-03-18)
PROC: 5A1D70Z Performance of Urinary Filtration, Intermittent, Less than 6 Hours Per Day (ICD-10-PCS; 2022-03-19)
PROC: 30233N1 Transfusion of Nonautologous Red Blood Cells into Peripheral Vein, Percutaneous Approach (ICD-10-PCS; principal; 2022-03-20)
PROC: 5A1D70Z Performance of Urinary Filtration, Intermittent, Less than 6 Hours Per Day (ICD-10-PCS; 2022-03-20)
PROC: 5A1D70Z Performance of Urinary Filtration, Intermittent, Less than 6 Hours Per Day (ICD-10-PCS; 2022-03-21)
PROC: 5A1D70Z Performance of Urinary Filtration, Intermittent, Less than 6 Hours Per Day (ICD-10-PCS; 2022-03-22)
PROC: 5A1D70Z Performance of Urinary Filtration, Intermittent, Less than 6 Hours Per Day (ICD-10-PCS; 2022-03-24)
DX: E87.70 Fluid overload, unspecified (principal); N18.6 End stage renal disease; E43 Unspecified severe protein-calorie malnutrition; G93.49 Other encephalopathy; R18.8 Other ascites; I12.0 Hypertensive chronic kidney disease with stage 5 chronic kidney disease or end stage renal disease; E87.5 Hyperkalemia; D63.8 Anemia in other chronic diseases classified elsewhere; K59.00 Constipation, unspecified; Z20.822 Contact with and (suspected) exposure to COVID-19; E78.5 Hyperlipidemia, unspecified; I25.10 Atherosclerotic heart disease of native coronary artery without angina pectoris; E11.51 Type 2 diabetes mellitus with diabetic peripheral angiopathy without gangrene; I48.0 Paroxysmal atrial fibrillation; E88.09 Other disorders of plasma-protein metabolism, not elsewhere classified; Z91.15 Patient's noncompliance with renal dialysis; Z99.2 Dependence on renal dialysis; Z91.010 Allergy to peanuts; Z91.040 Latex allergy status; Z91.14 Patient's other noncompliance with medication regimen; Z68.31 Body mass index [BMI] 31.0-31.9, adult; Z79.84 Long term (current) use of oral hypoglycemic drugs
CPT/HCPCS: 36415; 71045; 80048; 80053; 82962; 84484; 85007; 85014; 85018; 85025; 85027; 85610; 86850; 86900; 86901; 86920; 87081; 90935; 93005; 93306; 93971; 96374; 96375; G0378; J2405; P9047

== ENCOUNTER 2022-04-08 15:59 | Inpatient (IN) | payer MEDICARE, MEDICAID ==
[~2022-04-08] VITALS: Ht 180.3 cm; Wt 80.7 kg
[~2022-04-08 15:59] MED LIST changes: -AML5T PO; +APIX5TAB PO; -DILT120C12 PO; -MID10T GT; -RIVA10TA PO; -TAMS0.4C36 PO
[2022-04-08 19:27] LABS: Basophils # (auto) 0.1 10 ^3/uL (0-0.2); Basophils % (auto) 1.9 % (0.0-2.0); Eosinophils # (auto) 0 10 ^3/uL (0-0.8); Hematocrit 27.4 % (41.0-53.0); Lymphocytes # (auto) 0.3 10 ^3/uL (0.4-5.4); Lymphocytes % (auto) 5.6 % (10.0-50.0); Mean Corpuscular Hemoglobin 29.1 pg (28.0-32.0); Mean Corpuscular Hgb Conc. 32.9 g/dL (32.0-36.0); Mean Corpuscular Volume 88.3 fL (80.0-100.0); Monocytes # (auto) 0.3 10 ^3/uL (0-1.3); Monocytes % (auto) 5.2 % (0.0-12.0); Neutrophils # (auto) 4.6 10 ^3/uL (1.6-8.6); Neutrophils % (auto) 87.3 % (37.0-80.0); Nucleated Red Blood Cells % 0.1 %; Red Cell Distribution Width 16.9 % (11.8-14.3); White Blood Cell 5.3 10^3/uL (4.4-10.8)
[2022-04-08] MEDS ORDERED: ALBUTEROL SULF 2.5 MG/0.5ML(0.5%) NEB SOLN NEB ONE ×2 (20:30→23:00)
[2022-04-08] MEDS ORDERED: DEXTROSE (25%) 10 ML SYRG IV ONE (20:30)
[2022-04-08] MEDS ORDERED: DEXTROSE 50% SYRINGE 50 ML IV ONE (20:32)
[2022-04-08] MEDS ORDERED: DEXTROSE (50%) 50ML SYRG IV ONE ×2 (20:45→23:00)
[2022-04-08] MEDS ORDERED: SODIUM ZIRCONIUM CYCL 10 GM PAK PO ONE ×2 (21:15→22:30)
[2022-04-08 22:00] LABS: Albumin 2.1 g/dL (3.4-5.0); Calcium 9.7 mg/dL (8.5-10.1)
[2022-04-08 22:03] LABS: Bilirubin, Total 0.5 mg/dL (0.2-1.0); Total Protein 5.9 g/dL (6.4-8.2)
[2022-04-08 22:05] LABS: BUN/Creatinine Ratio 17.2
[2022-04-08 22:06] LABS: Potassium 6.6 mmol/L (3.5-5.1)
[2022-04-08] MEDS ORDERED: ACETAMINOPHEN 325 MG TAB PO PRN (22:15)
[2022-04-08] MEDS ORDERED: DOCUSATE SOD 100 MG CAP PO PRN (22:15)
[2022-04-08] MEDS ORDERED: HYDROcodone-ACET 5/325MG TAB PO PRN (22:15)
[2022-04-08] MEDS ORDERED: ONDANSETRON HCL 4 MG/2 ML VIAL IV PRN (22:15)
[2022-04-08] MEDS ORDERED: InsuLIN REG 1unit/0.01ml Soln (100units/ml) IV ONE (23:00)
[2022-04-08] MEDS ORDERED: SODIUM BICARBONATE 8.4% INJ 50ML SYRINGE IV ONE (23:00)
[2022-04-08] MEDS ORDERED: CALCIUM GLUC 1,000mg/50ml-NS 50 ML IV ONE (23:00)
[2022-04-09] MEDS ORDERED: NITROGLYCERIN 0.4 MG SL TAB SL PRN
[2022-04-09] MEDS ORDERED: MORPHINE SULFATE INJ 2 MG/ml SYRG IV PRN
[2022-04-09] MEDS ORDERED: SODIUM ZIRCONIUM CYCL 10 GM PAK PO ONE (05:00)
[2022-04-09 05:21] LABS: Basophils # (auto) 0 10 ^3/uL (0-0.2); Basophils % (auto) 0.7 % (0.0-2.0); Eosinophils # (auto) 0 10 ^3/uL (0-0.8); Hematocrit 25.9 % (41.0-53.0); Hemoglobin 8.6 g/dL (13.5-17.5); Lymphocytes # (auto) 0.4 10 ^3/uL (0.4-5.4); Lymphocytes % (auto) 5.9 % (10.0-50.0); Mean Corpuscular Hemoglobin 29.2 pg (28.0-32.0); Mean Corpuscular Hgb Conc. 33.1 g/dL (32.0-36.0); Mean Corpuscular Volume 88.2 fL (80.0-100.0); Monocytes # (auto) 0.4 10 ^3/uL (0-1.3); Monocytes % (auto) 6.8 % (0.0-12.0); Neutrophils # (auto) 5.7 10 ^3/uL (1.6-8.6); Neutrophils % (auto) 86.6 % (37.0-80.0); Nucleated Red Blood Cells % 0.1 %; Red Blood Cells 2.94 10^6/uL (4.5-5.90); White Blood Cell 6.5 10^3/uL (4.4-10.8)
[2022-04-09 05:31] LABS: Albumin 2.2 g/dL (3.4-5.0); Calcium 9.9 mg/dL (8.5-10.1)
[2022-04-09 05:35] LABS: BUN/Creatinine Ratio 18.8; Bilirubin, Total 0.5 mg/dL (0.2-1.0); Total Protein 6.3 g/dL (6.4-8.2)
[2022-04-09 05:55] LABS: Potassium 6.7 mmol/L (3.5-5.1)
[2022-04-09] MEDS: SODIUM CHLOR 0.9% PF (SALINE LOCK) 10ML VIAL/SYR IV SCH ×2 (06:08→14:00)
[2022-04-09] MEDS ORDERED: SODIUM CHL 0.9% 1000 ML BAG XX ONE (07:00)
[2022-04-09 08:00] VITALS: BP 140/33
[2022-04-09] MEDS: SEVELAMER 800 MG TAB PO SCH ×2 (09:22→12:00)
[2022-04-09] MEDS ORDERED: HEPARIN SODIUM (PORCINE) 5000 UNITS/ML 1ML VIAL SC SCH (10:00)
[2022-04-09] MEDS ORDERED: CARVEDILOL 3.125 MG TAB PO SCH (10:00)
[2022-04-09] MEDS ORDERED: FAMOTIDINE (10MG/ML) 2ML VL IV SCH (10:00)
[2022-04-09] MEDS ORDERED: ASCORBIC ACID 500 MG TAB PO SCH (10:00)
[2022-04-09] MEDS ORDERED: B-COMPLEX W/ C & FOLIC ACID(NEPHROVITE TAB) PO SCH (10:00)
[2022-04-09] MEDS ORDERED: ALBUMIN 25% 50 ML IV ONE (10:30)
[2022-04-09 12:18] LABS: Hematocrit 26.4 % (41.0-53.0); Hemoglobin 8.6 g/dL (13.5-17.5); Mean Corpuscular Hemoglobin 29.5 pg (28.0-32.0); Mean Corpuscular Hgb Conc. 32.7 g/dL (32.0-36.0); Mean Corpuscular Volume 90.2 fL (80.0-100.0); Red Blood Cells 2.92 10^6/uL (4.5-5.90); Red Cell Distribution Width 17.1 % (11.8-14.3); White Blood Cell 6.6 10^3/uL (4.4-10.8)
[2022-04-09 12:23] LABS: Albumin 2.4 g/dL (3.4-5.0); BUN/Creatinine Ratio 17.2; INR 1.18 (0.9-1.15); Magnesium 2.8 mg/dL (1.6-2.6); Partial Thromboplastin Time 22.6 sec (23.6-33.0)
[2022-04-09 12:26] LABS: Bilirubin, Total 0.5 mg/dL (0.2-1.0); Total Protein 6.3 g/dL (6.4-8.2)
[2022-04-09 12:27] LABS: Band Neutrophils % (manual) 0; Basophils % (manual) 0 (0.0-2.0); Blast Cells 0; Eosinophils % (manual) 0 (0-7); Metamyelocytes % 0; Myelocytes % 0; Promyelocytes % 0; Reactive Lymphocytes 0
[2022-04-09 12:58] LABS: Calcium 13.6 mg/dL (8.5-10.1); Potassium 7.3 mmol/L (3.5-5.1)
[2022-04-09 13:30] LABS: Lymphocytes % (manual) 18 (10.0-50.0); Monocytes % (manual) 8 (0-12)
[2022-04-09] MEDS ORDERED: EPINEPHrine HCL 1 MG/10 ML SYRG IV ONE (14:01)
[2022-04-09] MEDS ORDERED: CALCIUM CHLOR(10%) 100MG/ML 10ML SYRINGE IV ONE (14:01)
[2022-04-09] MEDS ORDERED: SODIUM BICARBONATE 8.4% INJ 50ML SYRINGE IV ONE (14:01)
[2022-04-09] MEDS ORDERED: DEXTROSE (50%) 50ML SYRG IV ONE (14:01)
[2022-04-09] MEDS ORDERED: EPOETIN ALFA-EPBX 10,000 UNIT/1ML VIAL SC ONE ×2 (21:00)
== END 2022-04-09 19:10 | DRG 640 ==
LOC: EDBD 15:59 → ER 15:59 → TELE 23:54 → TELE-CENTR 04-09 08:42
PROVIDERS: ADMIT Nurse Practitioner Family; ATTEND Internal Medicine
PROC: 05HA33Z Insertion of Infusion Device into Left Brachial Vein, Percutaneous Approach (ICD-10-PCS; 2022-04-08)
PROC: B54NZZA Ultrasonography of Left Upper Extremity Veins, Guidance (ICD-10-PCS; 2022-04-08)
PROC: 5A12012 Performance of Cardiac Output, Single, Manual (ICD-10-PCS; principal; 2022-04-09)
DX: E87.5 Hyperkalemia (principal); I50.33 Acute on chronic diastolic (congestive) heart failure; J96.01 Acute respiratory failure with hypoxia; N18.6 End stage renal disease; I13.2 Hypertensive heart and chronic kidney disease with heart failure and with stage 5 chronic kidney disease, or end stage renal disease; E11.22 Type 2 diabetes mellitus with diabetic chronic kidney disease; E11.51 Type 2 diabetes mellitus with diabetic peripheral angiopathy without gangrene; E11.649 Type 2 diabetes mellitus with hypoglycemia without coma; E88.09 Other disorders of plasma-protein metabolism, not elsewhere classified; F17.210 Nicotine dependence, cigarettes, uncomplicated; D63.8 Anemia in other chronic diseases classified elsewhere; Z20.822 Contact with and (suspected) exposure to COVID-19; I25.10 Atherosclerotic heart disease of native coronary artery without angina pectoris; L97.529 Non-pressure chronic ulcer of other part of left foot with unspecified severity; I46.9 Cardiac arrest, cause unspecified; R97.20 Elevated prostate specific antigen [PSA]; N40.0 Benign prostatic hyperplasia without lower urinary tract symptoms; Z80.0 Family history of malignant neoplasm of digestive organs; Z85.841 Personal history of malignant neoplasm of brain; Z89.511 Acquired absence of right leg below knee; Z91.19 Patient's noncompliance with other medical treatment and regimen; Z99.2 Dependence on renal dialysis; Z90.49 Acquired absence of other specified parts of digestive tract; Z91.15 Patient's noncompliance with renal dialysis; Z79.84 Long term (current) use of oral hypoglycemic drugs
CPT/HCPCS: 36415; 71045; 80053; 82962; 83735; 83880; 84484; 85007; 85025; 85027; 85610; 85730; 87340; 93005; 93971; 94640; 96365; 96375; 99291; G0378